=== PATIENT | male | born 1995 | race Caucasian/White ===

== ENCOUNTER 2024-12-22 20:24 | Emergency (ER) | payer MEDICAID, SELFPAY ==
--- OUTSIDE RECORDS SUMMARY | 2024-11-03 10:31 | XMS_ITS | Encounter Summary ---
Author Organization [facility] Address [address] [place] [address] Care Team Providers Care Quality Rep Name Role Phone Carlos Reis MD Unavailable [phone] Gloria Perez Primary Care Provider [phone] Reason for Visit * Reason Comments OP Infusion * Episode Based Medications (Routine) - Closed Specialty Diagnoses / Procedures Referred By Tami piña Referred To Contact Diagnoses Multiple sclerosis (CMS/HCC) Procedures AZ INJECTION, OCRELIZUMAB, 1 MG Carlos Reis MD [address] [address] Phone: tel: fax: Carlos Reis MD [id number] [place] [address] Phone: tel: fax: Referral ID Status Reason Start Date Expiration Date Visits Re quested Visits Authorized [id number] Closed 10/18/2024 04/19/2026 1 1 Encounter Details Date Type Department Care Team (Latest Contact Info) Description 11/03/2024 10:31 AM EDT - 11/03/2024 11:59 PM EDT Hospital Encounter [facility] [address] [place] [address] Multiple sclerosis (CMS/HCC) (Primary Dx) Discharge Disposition: Home or Self Care Social History Tobacco Use Types Packs/Day Years Used Date Smoking Tobacco: Former Cigarettes 0.5 4 Alcohol Use Standard Drinks/Week Comments Not Currently 1 (1 standard drink = 0.6 oz pur e alcohol) CAGE ASSESSMENT Answer Date Recorded Cage unable to access Not on file 02/22/2023 Cage max number of drinks Not on file 2022 Cage Beverages a week Not on file 02/22/2023 Have you ever felt you should CUT down on your d rinking? 0 02/22/2023 Have you been ANNOYED by people criticizing your drinking? 0 02/22/2023 Have you felt GUILTY about your drinking? 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 0 02/22/2023 CAGE Questionnaire Score 0 023 Sex and Gender Information Value Date Recorded Sex Assigned at Not on file Legal Sex Male 10:31 AM EDT Gender Identity Not on file Sexual Orientation Not on file documented as of this encounter Last Filed Vital Signs Vital Sign Reading Time Taken Comments Blood Pressure 113/78 11/03/2024 3:24 PM EDT Pulse 92 11/03/2024 3:24 PM EDT Temperature 36.6 C (97.8 F) 11/03/2024 10:38 AM EDT Respiratory Rate - - Oxygen Saturation - - Inhaled Oxygen Concentration - - Weight - - Height 193 cm (6' 4 ) 11/03/2024 10:38 AM EDT Body Mass Index - - documented in this encounter Medications at Time of Discharge acetaminophen (Tylenol) 325 MG tablet 03/11/2023 ammonium lactate (Lac-Hydrin) 12 % lotion 09/11/2023 busPIRone (Buspar) 5 MG tablet Take 1 tablet (5 mg) by mouth 2 (two) times a day. carbidopa-levodop a (Sinemet) 25-100 MG tablet Take 2 tablets by mouth 4 (four) times a day. ciprofloxacin (Cipro) 500 MG tablet 10/14/2024 cyclobenzaprine (Flexeril) 5 MG tablet 06/12/2023 docusate sodium (Colace) 250 MG capsule 06/18/2023 ergocalciferol 1.25 MG (70470 UT) capsule 10/01/2024 FLUoxetine (PROzac) 60 MG tablet 06/21/2023 gabapentin (Neurontin) 300 MG capsule Take 1 capsule (300 mg) by mouth 3 (three) times a day. loratadine (Claritin) 10 MG tablet Take 1 tablet (10 mg) by mouth 1 (one) time each day. mirabegron ER (Myrbetriq) 50 MG tablet 01/02/2024 oxybutynin XL (Ditropan-XL) 15 MG 24 hr tablet Take 1 tablet (15 mg) by mouth 1 (one) time each day. zolpidem (Ambien) 5 MG tablet Take 1 tablet (5 mg) by mouth every night. documented as of this encounter Miscellaneous Notes * Jaye Vaca RN - 11/03/2024 11:14 AM EDT Images from the original note were not included. [id number] Ocrelizumab Injection Brand Name(s): Dana?? WHY is this medicine prescribed? Ocrelizumab injection is used to treat adults with various forms of multiple sclerosis (MS; a disease in which the nerves do not function properly and people may experience weakness, numbness, loss of muscle coordination, and problems with vision, speech, and bladder control) including primary-progressive forms (symptoms gradually become worse over time), clinically isolated syndrome (CIS; nerve symptom episodes that last at least 24 hours), relapsing-remitting forms (course of disease where symptoms flare up from time to time), or secondary progressive forms (course of disease where relapsesoccur more often). Ocrelizumab in a class of medications called monoclonal antibodies. It works by stopping certain cells of the immune system from causing damage. HOW should this medicine be used? Ocrelizumab injection comes as a solution (liquid) to be injected intravenously (into a vein) by a doctor or nurse. It is usually injected slowly over a period of at least 2?? hours once every 2 weeks for the first two doses (at week 0 and week 2), and then infusions are given slowly over a period of about 2 to 3?? hours once every 6 months. Ocrelizumab injection may cause serious reactions during an infusion and up to a day after receiving the infusion. You may be given other medications to treat or help prevent reactions to ocrelizumab. A doctor or nurse will watch you closely while receiving the infusion and for at least 1 hour afterwards to provide treatment in case of certain side effects to the medication. Your doctor may temporarily or permanently stop your treatment or decrease the dose, if you experience certain side effects. Tell your doctor or nurse if you experience any of the following during or within 24 hours afteryour infusion: rash; itching; hives; redness at the injection site; difficulty breathing or swallowing; cough; wheezing; feeling faint; throat irritation; mouth or throat pain; shortness of breath; swelling of the face, eyes, mouth, throat, tongue, or lips; flushing; fever; fatigue; tiredness; headache; dizziness; nausea; or a racing heartbeat. Call your doctor immediately or get immediate emergency medical attention if you experience any of these symptoms after you leave your doctor's office or medical facility. Ocrelizumab may help to control multiple sclerosis symptoms but does not cure them. Your doctor will watch you carefully to see how well ocrelizumab works for you. It is important to tell your doctorhow you are feeling during your treatment. Your doctor or pharmacist will give you the bottled beverage inspector's patient information sheet (Medication Guide) when you begin treatment with ocrelizumab injection and each time you refill your prescription.Read the information carefully and ask your doctor or pharmacist if you have any questions. You canalso visit the Food and Drug Administration (FDA) website (https://www.fda.gov/Drugs/DrugSafety/ucm0 26074.htm)or the bottled beverage inspector's website to obtain the Medication Guide. Are there OTHER USES for this medicine? This medication may be prescribed for other uses; ask your doctor or pharmacist for more information. What SPECIAL PRECAUTIONS should I follow? Before receiving ocrelizumab injection, ?? tell your doctor and pharmacist if you are allergic to ocrelizumab, any other medications, or any of the ingredients in ocrelizumab injection. Ask your pharmacist for a list of the ingredients. ?? tell your doctor and pharmacist what prescription and nonprescription medications, vitamins, nutritional supplements, and herbal products you are taking or plan to take while taking ocrelizumab. Your doctor may need to change the doses of your medications or monitor you carefully for side effects. ?? tell your doctor if you have or have ever had hepatitis B (HBV; a virus that infects the liver and may cause severe liver damage or liver cancer). Your doctor will probably tell you not to receiveocrelizumab. ?? tell your doctor if you have any type of infection before you begin your treatment with ocrelizumab injection. Also tell your doctor if you have or have ever had inflammatory bowel disease (IBD; agroup of conditions that cause swelling of the lining of the intestines) such as Crohn's disease (acondition in which the body attacks the lining of the digestive tract, causing pain, diarrhea, weight loss, and fever) or ulcerative colitis (a condition which causes swelling and sores in the liningof the colon [large intestine] and rectum). ?? tell your doctor if you are , plan to become , or are . Use effective control during your treatment with ocrelizumab and for 6 months after the final dose. If you become while receiving ocrelizumab, call your doctor. If you receive ocrelizumab injection during your , be sure to talk to your baby's doctor about this after your baby is born. Your baby may need to delay receiving certain vaccines. ?? tell your doctor if you have had a recent vaccination or are scheduled to receive any vaccinations. You may need to receive certain types of vaccines at least 4 weeks before and others at least 2 weeks before you start treatment with ocrelizumab injection. Do not have any vaccinations without talking to your doctor during your treatment. What SPECIAL DIETARY instructions should I follow? Unless your doctor tells you otherwise, continue your normal diet. What should I do IF I FORGET to take a dose? If you miss an appointment to receive ocrelizumab, call your doctor as soon as possible to reschedule your appointment. What SIDE EFFECTS can this medicine cause? Some side effects can be serious. If you experience any of these symptoms or those listed in the HOW section, call your doctor immediately or get emergency medical treatment: ?? fever, chills, persistent cough, or other signs of infection ?? mouth sores ?? shingles (a rash that can occur in people who have had chickenpox in the past) ?? sores around the genitals or rectum ?? skin infection ?? changes in vision, severe or persistent headache, confusion, eye redness or eye pain, or stiff neck ?? weakness on one side of the body; clumsiness of arms and legs; vision changes; changes in thinking, memory, and orientation; confusion; or personality changes ?? diarrhea or more frequent, loose stools; stools that are black, tarry or sticky or have blood inthem; abdominal pain or tenderness Ocrelizumab may increase your risk of certain cancers, including breast cancer. Talk to your doctorabout the risks of receiving this medication. Ocrelizumab may cause other side effects. Call your doctor if you have any unusual problems while receiving this medication. If you experience a serious side effect, you or your doctor may send a report to the Food and Drug Administration's (FDA) [employer] Adverse Event Reporting program online (https://www.fda.gov/Safety/MedWatch) or by phone ( ). What should I do in case of OVERDOSE? In case of overdose, call the poison control helpline at . Information is also available online at https://www.poisonhelp.org/help. If the victim has collapsed, had a seizure, has trouble breathing, or can't be awakened, immediately call emergency services at 291. What OTHER INFORMATION should I know? Keep all appointments with your doctor and the laboratory. Your doctor will order certain lab testsbefore and during your treatment to check your body's response to ocrelizumab injection. Ask your pharmacist any questions you have about ocrelizumab injection. It is important for you to keep a written list of all of the prescription and nonprescription (hczv-goi-lgavjsl) medicines you are taking, as well as any products such as vitamins, minerals, or otherdietary supplements. You should bring this list with you each time you visit a doctor or if you areadmitted to a hospital. It is also important information to carry with you in case of emergencies. This report on medications is for your information only, and is not considered individual patient advice. Because of the changing nature of drug information, please consult your physician or pharmacist about specific clinical use. The [employer] represents that the information provided hereunder was formulated with a reasonable standard of care, and in conformity with professional standards in the field. The [employer] makes no representations or warranties, express or implied, including, but not limited to, any implied warranty of merchantability and/or fitness for a particular purpose, with respect to such information and specifically disclaims all such warranties. Users are advised that decisions regarding drug therapy are complex medical decisions requiring the independent, informed decision of an appropriate health animal daycare provider, and the information is provided for informational purposes only. The entire monograph for a drug should be reviewed for a thorough understanding of the drug's actions, uses and side effects. The [employer] does not endorse or recommend the use of any drug.The information is not a substitute for medical care. AHFS?? Patient Medication Information?. ?? Copyright, 2023. The [employer]??, [address], [address], [place], [place]. All Rights Reserved. Duplication for commercial use must be authorized by [facility]. Selected Revisions: May 19, 2024. AHFS?? Patient Medication Information?. ?? Copyright, 2024 * Progress Notes - Jaye Champion RN - 11/03/2024 11:00 AM EDT Patient requested labs be drawn with IV start due to difficult stick. They were educated on best practice and verbalized understanding. Informed patient that observation period is recommended per the physician order; however Patient and his guardian declined to stay for full observation period. Advised and verbalized signs and symptoms of a reaction and when to call the physician or call 911. Patient tolerated Ocrevus without symptoms of adverse reaction and left clinic in stable condition with follow up appt in hand. documented in this encounter Plan of Treatment Upcoming Encounters Date Type Department Care Team (Late st Contact Info) Description 04/21/2025 9:30 AM EST Office Visit [place] [facility] Clinic [address] [place] [address] Carlos Reis MD [address] [place] [id number] documented as of this encounter Procedures Procedure Name Priority Date/Time Associated Diagnosis Comments CBC WITH AUTO DIFFERENTIAL Routine 11/03/2024 11:02 AM EDT Multiple sclerosis (CMS/HCC) COMPREHENSIVE METABOLIC PANEL, PLASMA Routine 11/03/2024 11:02 AM EDT Multiple sclerosis (CMS/HCC) documented in this encounter Results * CBC and differential (11/03/2024 11:02 AM EDT) WBC Count 8.02 3.70 - 10.30 10*3/uL LAB HEMATOLOGY METHOD 11/03/2024 11:[address] [facility] RBC Count 5.55 4.60 - 6.10 10*6/uL LAB HEMATOLOGY METHOD 11/03/2024 11:[address] [facility] HGB 16.5 13.7 - 17.5 g/dL LAB HEMATOLOGY METHOD 11/03/2024 11:[address] [facility] HCT 49.0 40.0 - 51.0 % LAB HEMATOLOGY METHOD 11/03/2024 11:[address] [facility] Platelet Count 235 155 - 369 10*3/uL LAB HEMATOLOGY METHOD 11/03/2024 11:[address] [facility] MCV 88 79 - 98 fL LAB HEMATOLOGY METHOD 11/03/2024 11:[address] [facility] MCH 29.7 26.0 - 32.0 pg LAB HEMATOLOGY METHOD 11/03/2024 11:[address] [facility] MCHC 33.7 30.7 - 35.5 g/dL LAB HEMATOLOGY METHOD 11/03/2024 11:[address] [facility] RDW 13.7 11.5 - 14.5 % LAB HEMATOLOGY METHOD 11/03/2024 11:[address] [facility] MPV 10.1 8.8 - 12.5 fL LAB HEMATOLOGY METHOD 11/03/2024 11:[address] [facility] nRBC 0.0 <=0.0 per 100 WBCs LAB HEMATOLOGY METHOD 11/03/2024 11:[address] [facility] Differential Type Automated LAB HEMATOLOGY METHOD 11/03/2024 11:[address] [facility] Neutrophils % 61 % LAB HEMATOLOGY METHOD 11/03/2024 11:[address] [facility] Lymphocytes % 23 % LAB HEMATOLOGY METHOD 11/03/2024 11:[address] [facility] Monocytes % 9 % LAB HEMATOLOGY METHOD 11/03/2024 11:[address] [facility] Eosinophils % 6 % LAB HEMATOLOGY METHOD 11/03/2024 11:[address] [facility] Basophils % 1 % LAB HEMATOLOGY METHOD 11/03/2024 11:[address] [facility] Immature Granulocytes % 0 % LAB HEMATOLOGY METHOD 11/03/2024 11:[address] [facility] Neutrophils Absolute 4.89 1.60 - 6.10 10*3/uL LAB HEMATOLOGY METHOD 11/03/2024 11:[address] [facility] Lymphocytes Absolute 1.87 1.20 - 3.90 10*3/uL LAB HEMATOLOGY METHOD 11/03/2024 11:[address] [facility] Monocytes Absolute 0.69 0.30 - 0.90 10*3/uL LAB HEMATOLOGY METHOD 11/03/2024 11:[address] [facility] Eosinophils Absolute 0.47 0.00 - 0.50 10*3/uL LAB HEMATOLOGY METHOD 11/03/2024 11:[address] [facility] Basophils Absolute 0.07 0.00 - 0.10 10*3/uL LAB HEMATOLOGY METHOD 11/03/2024 11:[address] [facility] Immature Granulocytes Absolute 0.03 0.00 - 0.06 10*3/uL LAB HEMATOLOGY METHOD 11/03/2024 11:[address] [facility] Blood Venous blood specimen / Unknown Venipuncture / Unknown 11/03/2024 11:02 AM EDT 11/03/2024 11:13 AM EDT [facility] - 11/03/2024 11:27 AM EDT Therapeutic decision making should be based on absolute values, rather than percentages. us Carlos Reis MD LAB BLOOD ORDERABLES F inal Result [facility] [address] [place] [address] * (ABNORMAL) Comprehensive metabolic panel (11/03/2024 11:02 AM EDT) Glucose, Plasma 92 74 - 99 mg/dL 11/03/2024 11:[address] [facility] BUN, Plasma 11 7 - 21 mg/dL 11/03/2024 11:[address] [facility] Creatinine, Plasma 0.65(L) 0.70 - 1.20 mg/dL 11/03/2024 11:[address] [facility] BUN/Creatinine Ratio 17 11/03/2024 11:[address] [facility] Sodium, Plasma 138 136 - 145 mmol/L 11/03/2024 11:[address] [facility] Potassium, Plasma 4.1 3.6 - 4.9 mmol/L 11/03/2024 11:[address] [facility] Chloride, Plasma 101 97 - 107 mmol/L 11/03/2024 11:[address] [facility] CO2, Plasma 26 22 - 29 mmol/L 11/03/2024 11:[address] [facility] Anion Gap 11 6 - 16 mmol/L 11/03/2024 11:[address] [facility] Total Calcium, Plasma 9.2 8.9 - 10.2 mg/dL 11/03/2024 11:[address] [facility] Total Protein 7.7 6.3 - 7.9 g/dL 11/03/2024 11:[address] [facility] Albumin, Plasma 4.4 3.5 - 5.2 g/dL 11/03/2024 11:[address] [facility] AST, Plasma 21 10 - 50 U/L 11/03/2024 11:[address] [facility] Comment:Hemolyzed, result ma y be falsely increased. ALT, Plasma 14 10 - 50 U/L 11/03/2024 11:[address] [facility] Alkaline Phosphatase, Plasma 155(H) 40 - 115 U/L 11/03/2024 11:[address] [facility] Total Bilirubin, Plasma 0.2 0.2 - 1.1 mg/dL 11/03/2024 11:[address] [facility] eGFRcr 132.4 mL/min/1.7 3m*2 11/03/2024 11:[address] [facility] Comment:Reported eGFRcr in m L/min/1.73m2 is based the CKD-EPI 2020 equation that does not use a race coefficient. Blood Venous blood specimen / Unknown Venipuncture / Unknown 11/03/2024 11:02 AM EDT 11/03/2024 11:13 AM EDT us Carlos Reis MD LAB BLOOD ORDERABLES F inal Result [facility] [address] [place] [address] documented in this encounter Visit Diagnoses Diagnosis Multiple sclerosis (CMS/HCC)- Primary Multiple sclerosis documented in this encounter Administered Medications Inactive Administered Medications - up to 3 most recent administrations Medication Order MAR Action Action Date Dose Rate Site acetaminophen (Tylenol) tablet 650 mg 650 mg, Oral, Once, 1 dose, On Sat11/03/24 at 1130, RoutineIndications:Multip le sclerosis (CMS/HCC) Given 11/03/2024 11:03 AM EDT 650 mg diphenhydrAMINE (Benadryl) tablet 50 mg 50 mg, Oral, Once, 1 dose, On Sat11/03/24 at 1130, RoutineIndications:Multip le sclerosis (CMS/HCC) Given 11/03/2024 11:03 AM EDT 50 mg methylPREDNISolone sodium succinate (PF) (SOLU-Medrol) injection 125 mg 125 mg, Intravenous, Once, 1 dose, On Sat11/03/24 at 1130, RoutineIndications:Multip le sclerosis (CMS/HCC) Given 11/03/2024 11:03 AM EDT 125 mg ocrelizumab (Ocrevus) 600 mg in sodium chloride 0.9 % 500 mL IVPB 600 mg, Intravenous, Once, 1 dose, On Sat11/03/24 at 1200, RoutineIndications:Multip le sclerosis (CMS/HCC) Rate/Dose Change 11/03/2024 1:52 PM EDT 200 mL/hr Rate/Dose Change 11/03/2024 1:22 PM EDT 160 mL/ hr Rate/Dose Change 11/03/2024 12:52 PM EDT 120 mL /hr documented in this encounter Additional Health Concerns Assessment Noted Time A fall risk assessment has been complete d for the patient 11/03/2024 10:38 AM EDT A Body Mass Index follow-up plan has been documented for the patient 11/03/2024 11:54 AM EDT documented as of this encounter Care Teams Quality Rep Relationship Specialty Start Date End Date Gloria Perez [address] [place] [id number] PCP - General Family Medicine 06/20/22 Carlos Reis MD [address] [facility] [address] [place] [address] Service Attending Neurology 05/07/22 documented as of this encounter
[2024-12-22 20:26] VITALS: BP 128/86; PULSE 105; RESP 14; TEMP 37.3; O2SAT 97; BMI 27.3
--- NOTE | 2024-12-22 20:32 | XR_ITS ---
PROCEDURE INFORMATION: Exam: XR Chest Exam date and time: 12/22/2024 8:57 PM Age: 29 years old Clinical indication: Other: Altered TECHNIQUE: Imaging protocol: Radiologic exam of the chest. Views: 1 view. COMPARISON: No relevant prior studies available. FINDINGS: Tubes, catheters and devices: Left probable vagal nerve stimulator with the generator over the upper left axilla. Lungs: Unremarkable. No consolidation. Pleural spaces: Unremarkable. No pleural effusion. No pneumothorax. Heart/Mediastinum: Unremarkable. No cardiomegaly. 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 IMPRESSION: No acute findings.
--- OUTSIDE RECORDS SUMMARY | 2024-12-22 20:35 | XMS_ITS | Encounter Summary ---
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 0 02/22/2023 CAGE Questionnaire Score 0 023 Sex and Gender Information Value Date Recorded Sex Assigned at Not on file Legal Sex Male 10:31 AM EDT Gender Identity Not on file Sexual Orientation Not on file documented as of this encounter Plan of Treatment Upcoming Encounters Date Type Department Care Team (Late st Contact Info) Description 04/21/2025 9:30 AM EST Office Visit [place] [facility] [address] [place] [address] Carlos Reis MD [address] [facility] [place] [address] documented as of this encounter Visit Diagnoses Not on filedocumented in this encounter Additional Health Concerns Assessment Noted Time A fall risk assessment has been complete d for the patient 11/03/2024 10:38 AM EDT A Body Mass Index follow-up plan has been documented for the patient 11/03/2024 11:54 AM EDT documented as of this encounter Care Teams Roller Relationship Specialty Start Date End Date Gloria Perez [address] [place] [id number] PCP - General Family Medicine 06/20/22 Carlos Reis MD [address] [place] [address] Service Attending Neurology 05/07/22 documented as of this encounter
--- OUTSIDE RECORDS SUMMARY | 2024-12-22 20:35 | XMS_ITS | Data Portability ---
Author Organization [facility] [place] [address] [place] [address] Assessment Encounter Date Assessment Date Assessment LastModified by Organization Details LastModified Time 05/21/2024 05/21/2024 - for catheter and supplies= [employer]. -also gave resources for [facility] development. continue on myrbetriq and oxybutinin -fu monthly for changes either with us or dr saab. i did discuss trying to see if we can get home health set up to change his catheters at home. they have missed quite a few apts in the past and cath changes have been late. this time he ended up in the hospital because if the infection and he was 4 months since his last change. we discussed risks associated with this. his mom has been in contact with but hasnt gotten it set up yet. 30 min spent in prep, face to face, and in coordination of care in addition to procedure time. Not available 05/21/2024 11:58:05 07/09/2024 07/09/2024 - for catheter and supplies= [facility]. -also gave resources for [facility] development. continue on myrbetriq and oxybutinin -fu monthly for changes either with us or dr saab. i did discuss trying to see if we can get home health set up to change his catheters at home. they have missed quite a few apts in the past and cath changes have been late. this time he ended up in the hospital because if the infection and he was 4 months since his last change. we discussed risks associated with this. his mom has been in contact with but hasnt gotten it set up yet. 30 min spent in prep, face to face, and in coordination of care in addition to procedure time. Not available 06/22/2024 09:44:53 08/12/2024 08/12/2024 - for catheter and supplies= [facility]. -also gave resources for [email or web address]. continue on myrbetriq and oxybutinin -fu monthly for changes either with us or dr saab. i did discuss trying to see if we can get home health set up to change his catheters at home. they have missed quite a few apts in the past and cath changes have been late. this time he ended up in the hospital because if the infection and he was 4 months since his last change. we discussed risks associated with this. his mom has been in contact with but hasnt gotten it set up yet. 30 min spent in prep, face to face, and in coordination of care in addition to procedure time. Not available 08/03/2024 10:17:41 10/14/2024 10/14/2024 - for catheter and supplies= [facility]. -also gave resources for [email or web address]. continue on myrbetriq and oxybutinin -fu monthly for changes either with us or dr saab. i did discuss trying to see if we can get home health set up to change his catheters at home. they have missed quite a few apts in the past and cath changes have been late. this time has been 2 months. we discussed risks associated with this. his mom has been in contact with but hasnt gotten it set up yet. next cath change with us in february, otherwise with home health until then monthly. 30 min spent in prep, face to face, and in coordination of care in addition to procedure time. [email or web address] Not available 10/14/2024 16:12:47 Plan of Treatment Reminders Order Date Submit Date Provider Last Modified By Organization Details Last Modified Time Details Appointments Establish ed Patient 20 2024 02:40P Radha Johnson APRN Not available Not available Not available Lab infectiou s disease panel 2024 025 CARSON [facility], [address], [place], [address], 10/17/2024 16:23:03 culture, urine - PT HAS CHRONIC CATH, LIKELY WILL HAVE MULTIPLE ORGANISMS PRESENT, PLS RESULT OUT 2024 025 CARSON [facility], [address], [address], [place], [address], 07/11/2024 08:20:33 unlisted lab - complianc e drug damari, no THC 2023 024 CARSON [facility], [address], [address], [place], [address], 06/07/2024 18:06:55 TSH + free T4, serum 2023 024 CARSON [facility], [address], [place] [address], [place], [address], 07/10/2024 08:24:23 CBC w/ auto diff 2023 024 CARSON [facility], [address], [place] [address], [place], [address], 07/10/2024 08:24:24 CMP, serum or plasma 2023 024 CAROSN [facility], [address], [place] [address], [place], [address], 07/10/2024 08:24:25 lipid panel, serum 2023 024 CARSON [facility], [address], [address], [place], [address], 07/10/2024 08:24:25 vitamin D, 25-hydrox y, total, serum 2023 024 CARSON [facility], [address], [address], [place], [address], 07/10/2024 08:24:27 HbA1c (hemoglob in A1c), blood 2023 024 CARSON [facility], [address], [address], [place], [address], 07/10/2024 08:24:26 Referral None recorded. Procedures None recorded. Surgeries None recorded. Imaging None recorded. Medication Orders Cipro 500 mg tablet 2024 025 [facility], [address] [place] [address], [address], 10/31/2024 05:01:25 Myrbetriq 50 mg tablet,ex tended release 2024 025 [facility], [address] [place] [address], [address], 10/14/2024 15:30:07 oxybutyni n chloride ER 15 mg tablet,ex tended release 24 hr 2024 025 [facility], [address] [place] [address], [address], 10/14/2024 15:30:08 Myrbetriq 50 mg tablet,ex tended release 2024 025 [facility] [id number], [address] [facility] , [place], [address], 08/12/2024 14:21:23 oxybutyni n chloride ER 15 mg tablet,ex tended release 24 hr [address] [facility] [address] [facility] [id number], [address] , [place], [address], 08/12/2024 14:21:27 Myrbetriq 50 mg tablet,ex tended release [address] [facility] [id number], [address] [facility] , [place], [address], 07/09/2024 11:45:29 oxybutyni n chloride ER 15 mg tablet,ex tended release 24 hr 2024 025 [facility] [id number], [address] [facility] , [place], [address], 07/09/2024 11:45:32 zolpidem 5 mg tablet 2023 024 [facility] [id number], [address] [facility] , [place], [address], 05/26/2024 12:06:05 gabapenti n 300 mg capsule 2023 024 [facility] [id number], [address] [facility] [address] , [place], [address], 05/26/2024 12:06:05 Myrbetriq 50 mg tablet,ex tended release 2023 024 [facility] [id number], [address] [facility] , [place], [address], 05/21/2024 11:57:42 oxybutyni n chloride ER 15 mg tablet,ex tended release 24 hr 2023 024 [facility] [id number], [address] [place] [address] , [place], [address], 05/21/2024 11:57:46 Patient TargetsNo targets recorded. Patient Instructions Encounter Date Encounter Id Patient Instructions Last Modified By Organization Details Last Modified Time 05/21/2024 [id number] depression treatment: care instructions Not available 05/21/2024 11:57:41 multiple sclerosis (MS): care instructions Not available 05/21/2024 11:57:40 05/26/2024 [id number] PP will call wit h results. If you have any questions or concerns, call pp or seek medical attention. [email or web address] Not available 05/26/2024 12:18:36 07/09/2024 [id number] depression treatment: care instructions Not available 07/09/2024 11:45:24 multiple sclerosis (MS): care instructions Not available 07/09/2024 11:45:24 08/12/2024 [id number] depression treatment: care instructions Not available 08/12/2024 14:21:16 multiple sclerosis (MS): care instructions Not available 08/12/2024 14:21:16 10/14/2024 [id number] depression treatment: care instructions Not available 10/14/2024 15:30:03 multiple sclerosis (MS): care instructions Not available 10/14/2024 15:30:03 Reason for Referral None Reported. Results Created Date Observation Date Name Description Value Unit Range Abnormal Flag Note LastModifiedBy Organization Detail LastModifiedTime 05/26/20 24 06/07/2024 COMPL IANCE DRUG DAMARI , NO THC summary report (summary) FINAL ===== ===== ===== ===== ===== ===== ===== ===== ===== ===== ===== ===== ===== === TOXAS SURE COMP DRUG DAMARI SIS,N O THC,U R ===== ===== ===== ===== ===== ===== ===== ===== ===== ===== ===== ===== ===== === Test Resul t Flag Units Drug Prese nt Cyclo benza claudine PRESE NT Desme thylc yclob enzap rine PRESE NT Desme thylc yclob enzap rine is an expec jayashree metab olite of cyclo benza claudine . Zolpi dem Acid PRESE NT Zolpi dem acid is an expec jayashree metab olite of zolpi dem. Fluox etine PRESE NT Norfl uoxet ine PRESE NT Norfl uoxet ine is an expec jayashree metab olite of fluox etine . Trazo done PRESE NT 1,3 chlor ophen yl piper azine PRESE NT 1,3-c hloro pheny l piper azine is an expec jayashree metab olite of trazo done. ===== ===== ===== ===== ===== ===== ===== ===== ===== ===== ===== ===== ===== === Test Resul t Flag Units Ref Range Creat inine 161 mg/dL >=20 ===== ===== ===== ===== ===== ===== ===== ===== ===== ===== ===== ===== ===== === Decla red Medic ation s: Medic ation list was not provi ded. ===== ===== ===== ===== ===== ===== ===== ===== ===== ===== ===== ===== ===== === For clini charity consu ltati on, pleas e call . ===== ===== ===== ===== ===== ===== ===== ===== ===== ===== ===== ===== ===== === Not Available [facility] ([facility]) [address] [place], [address], 06/07/2024 18:06:55 05/26/20 24 06/07/2024 COMPL IANCE DRUG DAMARI , NO THC pdf . Not Available [facility] ([facility]) [address] [place], [address], 06/07/2024 18:06:55 07/09/1907/10/2024 TSH+F REE T4 TSH 1.320 uIU/m L 0.450- 4.500 normal Not Available [facility] ([facility]) [address] [place], [address], 07/10/2024 08:24:23 07/09/19 25 07/10/2024 TSH+F REE T4 T4,free(dire ct) 0.89 NG/dL 0.82-1 .77 normal Not Available [facility] ([facility]) [address] [place], [address], 07/10/2024 08:24:23 07/09/19 25 07/10/2024 CBC WITH DIFFE RENTI AL/PL ATELE T WBC 8.1 x10e3 /uL 3.4-10 .8 normal Not Available [facility] ([facility]) [address] [place], [address], 07/10/2024 08:24:24 07/09/19 25 07/10/2024 CBC WITH DIFFE RENTI AL/PL ATELE T RBC 5.40 x10e6 /uL 4.14-5 .80 normal Not Available [facility] ([facility]) [address] [place], [address], 07/10/2024 08:24:24 07/09/19 25 07/10/2024 CBC WITH DIFFE RENTI AL/PL ATELE T hemoglobin 16.1 g/dL 13.0-1 7.7 normal Not Available [facility] ([facility]) [address] [place], [address], 07/10/2024 08:24:24 07/09/19 25 07/10/2024 CBC WITH DIFFE RENTI AL/PL ATELE T hematocrit 49.0 % 37.5-5 1.0 normal Not Available [facility] ([facility]) [address] [place], [address], 07/10/2024 08:24:24 07/09/1907/10/2024 CBC WITH DIFFE RENTI AL/PL ATELE T MCV 91 fL 79-97 normal Not Available [facility] ([facility]) [address] [place], [address], 07/10/2024 08:24:24 07/09/19 25 07/10/2024 CBC WITH DIFFE RENTI AL/PL ATELE T MCH 29.8 pg 26.6-3 3.0 normal Not Available [facility] ([facility]) [address] [place], [address], 07/10/2024 08:24:24 07/09/19 25 07/10/2024 CBC WITH DIFFE RENTI AL/PL ATELE T MCHC 32.9 g/dL 31.5-3 5.7 normal Not Available [facility] ([facility]) [address] [facility], [place], [address], 07/10/2024 08:24:24 07/09/19 25 07/10/2024 CBC WITH DIFFE RENTI AL/PL ATELE T RDW 13.9 % 11.6-1 5.4 Not Available [facility] ([facility]) [address] [place], [address], 07/10/2024 08:24:24 07/09/19 25 07/10/2024 CBC WITH DIFFE RENTI AL/PL ATELE T platelets 247 x10e3 /uL 150-45 0 normal Not Available [facility] ([facility]) [address] [place], [address], 07/10/2024 08:24:24 07/09/19 25 07/10/2024 CBC WITH DIFFE RENTI AL/PL ATELE T neutrophils 61 % not estab. normal Not Available [facility] ([facility]) [address] [place], [address], 07/10/2024 08:24:24 07/09/19 25 07/10/2024 CBC WITH DIFFE RENTI AL/PL ATELE T lymphs 24 % not estab. normal Not Available [facility] ([facility]) [address] [place], [address], 07/10/2024 08:24:24 07/09/19 25 07/10/2024 CBC WITH DIFFE RENTI AL/PL ATELE T monocytes 8 % not estab. normal Not Available [facility] ([facility]) [address] [place], [address], 07/10/2024 08:24:24 07/09/19 25 07/10/2024 CBC WITH DIFFE RENTI AL/PL ATELE T eos 5 % not estab. normal Not Available [facility] ([facility]) [address] [place], [address], 07/10/2024 08:24:24 07/09/19 25 07/10/2024 CBC WITH DIFFE RENTI AL/PL ATELE T basos 1 % not estab. normal Not Available [facility] ([facility]) [address] [facility], [place], [address], 07/10/2024 08:24:24 07/09/19 25 07/10/2024 CBC WITH DIFFE RENTI AL/PL ATELE T immature cells SCHOOL CLERK Not Available [facility] ([facility]) [address] [place], [address], 07/10/2024 08:24:24 07/09/19 25 07/10/2024 CBC WITH DIFFE RENTI AL/PL ATELE T neutrophils (absolute) 5.0 x10e3 /uL 1.4-7. 0 normal Not Available [facility] ([facility]) [address] [place], [address], 07/10/2024 08:24:24 07/09/19 25 07/10/2024 CBC WITH DIFFE RENTI AL/PL ATELE T lymphs (absolute) 1.9 x10e3 /uL 0.7-3. 1 normal Not Available [facility] ([facility]) [address] [place], [address], 07/10/2024 08:24:24 07/09/19 25 07/10/2024 CBC WITH DIFFE RENTI AL/PL ATELE T monocytes(ab solute) 0.6 x10e3 /uL 0.1-0. 9 normal Not Available [facility] ([facility]) [address] [facility], [place], [address], 07/10/2024 08:24:24 07/09/19 25 07/10/2024 CBC WITH DIFFE RENTI AL/PL ATELE T eos (absolute) 0.4 x10e3 /uL 0.0-0. 4 normal Not Available [facility] ([facility]) [address] [facility], [place], [address], 07/10/2024 08:24:24 07/09/19 25 07/10/2024 CBC WITH DIFFE RENTI AL/PL ATELE T baso (absolute) 0.1 x10e3 /uL 0.0-0. 2 normal Not Available [facility] ([facility]) [address] [facility], [place], [address], 07/10/2024 08:24:24 07/09/19 25 07/10/2024 CBC WITH DIFFE RENTI AL/PL ATELE T immature granulocytes 1 % not estab. Not Available [facility] ([facility]) [address] [facility], [place], [address], 07/10/2024 08:24:24 07/09/19 25 07/10/2024 CBC WITH DIFFE RENTI AL/PL ATELE T immature grans (abs) 0.0 x10e3 /uL 0.0-0. 1 Not Available [facility] ([facility]) [address] [facility], [place], [address], 07/10/2024 08:24:24 07/09/19 25 07/10/2024 CBC WITH DIFFE RENTI AL/PL ATELE T NRBC SCHOOL CLERK Not Available [facility] ([facility]) [address] [facility], [place], [address], 07/10/2024 08:24:24 07/09/19 25 07/10/2024 CBC WITH DIFFE RENTI AL/PL ATELE T hematology comments: SCHOOL CLERK Not Available [facility] ([facility]) [address] [place], [address], 07/10/2024 08:24:24 07/09/19 25 07/10/2024 COMP. METAB OLIC PANEL (14) glucose 91 mg/dL 70-99 normal Not Available [facility] ([facility]) [address] [place], [address], 07/10/2024 08:24:25 07/09/19 25 07/10/2024 COMP. METAB OLIC PANEL (14) BUN 16 mg/dL 6-20 normal Not Available [facility] ([facility]) [address] [place], [address], 07/10/2024 08:24:25 07/09/19 25 07/10/2024 COMP. METAB OLIC PANEL (14) creatinine 0.94 mg/dL 0.76-1 .27 normal Not Available [facility] ([facility]) [address] [place], [address], 07/10/2024 08:24:25 07/09/19 25 07/10/2024 COMP. METAB OLIC PANEL (14) eGFR 114 mL/mi n/1.7 3 >59 normal Not Available [facility] ([facility]) [address] [place], [address], 07/10/2024 08:24:25 07/09/19 25 07/10/2024 COMP. METAB OLIC PANEL (14) BUN/creatini ne ratio 17 9-20 normal Not Available [facility] ([facility]) [address] [place], [address], 07/10/2024 08:24:25 07/09/19 25 07/10/2024 COMP. METAB OLIC PANEL (14) sodium 142 mmol/ L 134-14 4 normal Not Available [facility] ([facility]) [address] [place], [address], 07/10/2024 08:24:25 07/09/19 25 07/10/2024 COMP. METAB OLIC PANEL (14) potassium 5.0 mmol/ L 3.5-5. 2 normal Not Available [facility] ([facility]) [address] [place], [address], 07/10/2024 08:24:25 07/09/19 25 07/10/2024 COMP. METAB OLIC PANEL (14) chloride 104 mmol/ L 96-106 normal Not Available [facility] ([facility]) [address] [place], [address], 07/10/2024 08:24:25 07/09/19 25 07/10/2024 COMP. METAB OLIC PANEL (14) carbon dioxide, total 22 mmol/ L 20-29 normal Not Available [facility] ([facility] [address] [place], [address], 07/10/2024 08:24:25 07/09/19 25 07/10/2024 COMP. METAB OLIC PANEL (14) calcium 9.3 mg/dL 8.7-10 .2 normal Not Available [facility] ([facility] [address] [place], [address], 07/10/2024 08:24:25 07/09/19 25 07/10/2024 COMP. METAB OLIC PANEL (14) protein, total 7.5 g/dL 6.0-8. 5 normal Not Available [facility] ([facility] [address] [place], [address], 07/10/2024 08:24:25 07/09/19 25 07/10/2024 COMP. METAB OLIC PANEL (14) albumin 4.5 g/dL 4.3-5. 2 normal Not Available [facility] ([facility]) [address] [place], [address], 07/10/2024 08:24:25 07/09/19 25 07/10/2024 COMP. METAB OLIC PANEL (14) globulin, total 3.0 g/dL 1.5-4. 5 Not Available [facility] ([facility]) [address] [place], [address], 07/10/2024 08:24:25 07/09/19 25 07/10/2024 COMP. METAB OLIC PANEL (14) bilirubin, total 0.3 mg/dL 0.0-1. 2 normal Not Available [facility] ([facility]) [address] [place], [address], 07/10/2024 08:24:25 07/09/19 25 07/10/2024 COMP. METAB OLIC PANEL (14) alkaline phosphatase 160 IU/L 44-121 above high normal Not Available [facility] ([facility]) [address] [place], [address], 07/10/2024 08:24:25 07/09/19 25 07/10/2024 COMP. METAB OLIC PANEL (14) AST (SGOT) 23 IU/L 0-40 normal Not Available [facility] ([facility]) [address] [place], [address], 07/10/2024 08:24:25 07/09/19 25 07/10/2024 COMP. METAB OLIC PANEL (14) ALT (SGPT) 15 IU/L 0-44 normal Not Available [facility] ([facility]) [address] [place], [address], 07/10/2024 08:24:25 07/09/19 25 07/10/2024 LIPID PANEL cholesterol, total 178 mg/dL 100-19 9 normal Not Available [facility] ([facility]) [address] [place], [address], 07/10/2024 08:24:25 07/09/19 25 07/10/2024 LIPID PANEL triglyceride s 140 mg/dL 0-149 normal Not Available [facility] ([facility]) [address] [place], [address], 07/10/2024 08:24:25 07/09/19 25 07/10/2024 LIPID PANEL HDL cholesterol 33 mg/dL >39 below low normal Not Available [facility] ([facility]) [address] [place], [address], 07/10/2024 08:24:25 07/09/19 25 07/10/2024 LIPID PANEL VLDL cholesterol charity 25 mg/dL 5-40 Not Available [facility] ([facility]) [address] [place], [address], 07/10/2024 08:24:25 07/09/19 25 07/10/2024 LIPID PANEL LDL chol calc ([facility]) 120 mg/dL 0-99 above high normal Not Available [facility] ([facility]) [address] [place], [address], 07/10/2024 08:24:25 07/09/1907/10/2024 LIPID PANEL LDL calc comment: SCHOOL CLERK Not Available [facility] ([facility]) [address] [place], [address], 07/10/2024 08:24:25 07/09/1907/10/2024 HEMOG LOBIN A1C hemoglobin A1C 5.3 % 4.8-5. 6 normal Predi abete s: 5.7 - 6.4 Diabe lionel: >6.4 Glyce xenia contr ol for adult s with diabe lionel: <7.0 Not Available [facility] ([facility]) [address] [place], [address], 07/10/2024 08:24:26 07/09/19 25 07/10/2024 VITAM IN D, 25-HY DROXY vitamin D, 25-hydroxy 13.2 NG/mL 30.0-1 00.0 below low normal Vitam in D defic iency has been defin ed by the Insti tute of Medic ine and an Endoc rine Socie ty pract ice guide line as a level of serum 25-OH vitam in D less than 20 ng/mL (1,2) . The Endoc rine Socie ty went on to furth er defin e vitam in D insuf ficie ncy as a level betwe en 21 and 29 ng/mL (2). 1. IOM (Inst itute of Medic ine). 2010. Dieta ry refer ence intak es for calci um and D. Mirela valadez [place]: The [facility] Press . 2. Mary pyle MF, Nay bryan [place], João off-F chelsea i MOLINA, et al. Evalu ation , treat ment, and preve ntion of vitam in D defic iency : an Endoc rine Socie ty clini charity pract ice guide line. JCEM. 2010; 96(7) :1911 -30. Not Available [facility] ([facility]) [address] [facility], [place], [address], 07/10/2024 08:24:26 07/09/19 25 07/11/2024 URINE CULTU RE,CO MPREH ENSIV E urine culture,comp rehensive Final report Not Available [facility] ([facility]) [address] [place], [address], 07/11/2024 08:20:33 07/09/19 25 07/11/2024 URINE CULTU RE,CO MPREH ENSIV E result 1 COMMEN T More than 3 organ isms recov ered, none predo minan t. Pleas e submi t anoth er cultu re if clini sofía indic ated. Great er than 100,0 00 colon y formi ng units per mL Not Available [facility] ([facility]) [address] [facility], [place], [address], 07/11/2024 08:20:33 10/15/19 25 10/14/2024 MICRO SENSI TIVIT Y abnormal status abnormal Not Available [facility] [address], [place], [address], 10/17/2024 16:23:04 10/15/19 25 10/14/2024 MICRO SENSI TIVIT Y abnormal status high Not Available [facility] [address], [place], [address], 10/17/2024 16:23:04 10/15/19 25 10/14/2024 MICRO SENSI TIVIT Y abnormal status intermedi ate Not Available [facility] [address], [place], [address], 10/17/2024 16:23:04 10/15/19 25 10/14/2024 MICRO SENSI TIVIT Y abnormal status resistant Not Available [facility] [address], [place], [address], 10/17/2024 16:23:04 10/15/19 25 10/14/2024 MICRO SENSI TIVIT Y abnormal status susceptib le Not Available [facility] [address], [place], [address], 10/17/2024 16:23:04 10/15/19 25 10/14/2024 MICRO SENSI TIVIT Y ampicillin >16 R resistant Not Available [facility] [address], [place], [address], 10/17/2024 16:23:04 10/15/19 25 10/14/2024 MICRO SENSI TIVIT Y amikacin <=8 S susceptib le Not Available [facility] [address], [place], [address], 10/17/2024 16:23:04 10/15/19 25 10/14/2024 MICRO SENSI TIVIT Y aztreonam <=2 S susceptib le Not Available [facility] [address], [place], [address], 10/17/2024 16:23:04 10/15/19 25 10/14/2024 MICRO SENSI TIVIT Y ceftazidime <=2 S susceptib le Not Available [facility] [address], [place], [address], 10/17/2024 16:23:04 10/15/19 25 10/14/2024 MICRO SENSI TIVIT Y ciprofloxaci n 2 R resistant Not Available [facility] [address], [place], [address], 10/17/2024 16:23:04 10/15/19 25 10/14/2024 MICRO SENSI TIVIT Y ceftriaxone <=1 S susceptib le Not Available [facility] [address], [place], [address], 10/17/2024 16:23:04 10/15/19 25 10/14/2024 MICRO SENSI TIVIT Y cefepime <=1 S susceptib le Not Available [facility] [address], [place], [address], 10/17/2024 16:23:04 10/15/19 25 10/14/2024 MICRO SENSI TIVIT Y nitrofuranto in 32 S susceptib le Not Available [facility] [address], [place], [address], 10/17/2024 16:23:04 10/15/19 25 10/14/2024 MICRO SENSI TIVIT Y gentamicin <=2 S susceptib le Not Available [facility] [address], [place], [address], 10/17/2024 16:23:04 10/15/19 25 10/14/2024 MICRO SENSI TIVIT Y levofloxacin 2 R resistant Not Available [facility] [address], [place], [address], 10/17/2024 16:23:04 10/15/19 25 10/14/2024 MICRO SENSI TIVIT Y meropenem <=0.5 S susceptib le Not Available [facility] [address], [place], [address], 10/17/2024 16:23:04 10/15/19 25 10/14/2024 MICRO SENSI TIVIT Y tobramycin <=2 S susceptib le Not Available [facility] [address], [place], [address], 10/17/2024 16:23:04 10/15/19 25 10/14/2024 MICRO SENSI TIVIT Y ampicillin/s ulbactam 23/01 intermedi ate Not Available [facility] [address], [place], [address], 10/17/2024 16:23:04 10/15/19 25 10/14/2024 MICRO SENSI TIVIT Y trimethoprim /sulfamethox azole <=0.5/ 9.5 S susceptib le Not Available [facility] [address], [place], [address], 10/17/2024 16:23:04 10/15/19 25 10/14/2024 MICRO SENSI TIVIT Y tetracycline <=2 S susceptib le Not Available [facility] [address], [place], [address], 10/17/2024 16:23:04 10/15/19 25 10/14/2024 MICRO SENSI TIVIT Y piperacillin /tazobactam 4/4 S susceptib le Not Available [facility] [address], [place], [address], 10/17/2024 16:23:04 10/15/19 25 10/14/2024 MICRO SENSI TIVIT Y ertapenem <=0.25 S susceptib le Not Available [facility] [address], [place], [address], 10/17/2024 16:23:04 10/15/19 25 10/14/2024 MICRO SENSI TIVIT Y organism Esch. coli Not Available [facility] [address], [place], [address], 10/17/2024 16:23:04 10/15/19 25 10/14/2024 RESIS TANCE MARKE RS ampc resistance marker Not Detect ed normal Not Available [facility] [address], [place], [address], 10/17/2024 16:23:03 10/15/19 25 10/14/2024 RESIS TANCE MARKE RS carbapenem resistance markers Not Detect ed normal Not Available [facility] [address], [place], [address], 10/17/2024 16:23:03 10/15/19 25 10/14/2024 RESIS TANCE MARKE RS esbl resistance markers Detect ed abnormal Not Available [facility] [address], [place], [address], 10/17/2024 16:23:03 10/15/19 25 10/14/2024 RESIS TANCE MARKE RS macrolide resistance markers Detect ed abnormal Not Available [facility] [address], [place], [address], 10/17/2024 16:23:03 10/15/19 25 10/14/2024 RESIS TANCE MARKE RS quinolone resistance markers Not Detect ed normal Not Available [facility] [address], [place], [address], 10/17/2024 16:23:03 10/15/19 25 10/14/2024 RESIS TANCE MARKE RS vancomycin resistance markers Not Detect ed normal Not Available [facility] [address], [place], [address], 10/17/2024 16:23:03 10/15/19 25 10/15/2024 UTI ID PANEL COMPL ETE, PCR eliseo albicans Not Detect ed not detect ed normal Not Available [facility] [address], [place], [address], 10/17/2024 16:23:03 10/15/19 25 10/15/2024 UTI ID PANEL COMPL ETE, PCR eliseo glabrata Not Detect ed not detect ed normal Not Available [facility] [address], [place], [address], 10/17/2024 16:23:03 10/15/19 25 10/15/2024 UTI ID PANEL COMPL ETE, PCR eliseo krusei Not Detect ed not detect ed normal Not Available [facility] [address], [place], [address], 10/17/2024 16:23:03 10/15/19 25 10/15/2024 UTI ID PANEL COMPL ETE, PCR eliseo lusitaniae Not Detect ed not detect ed normal Not Available [facility] [address], [place], [address], 10/17/2024 16:23:03 10/15/19 25 10/15/2024 UTI ID PANEL COMPL ETE, PCR eliseo parapsilosis Not Detect ed not detect ed normal Not Available [facility] [address], [place], [address], 10/17/2024 16:23:03 10/15/19 25 10/15/2024 UTI ID PANEL COMPL ETE, PCR eliseo tropicalis Not Detect ed not detect ed normal Not Available [facility] [address], [place], [address], 10/17/2024 16:23:03 10/15/19 25 10/15/2024 UTI ID PANEL COMPL ETE, PCR enterobacter cloacae Not Detect ed not detect ed normal Not Available [facility] [address], [place], [address], 10/17/2024 16:23:03 10/15/19 25 10/15/2024 UTI ID PANEL COMPL ETE, PCR enterococcus faecalis High not detect ed high Not Available [facility] [address], [place], [address], 10/17/2024 16:23:03 10/15/19 25 10/15/2024 UTI ID PANEL COMPL ETE, PCR escherichia coli High not detect ed high Not Available [facility] [address], [place], [address], 10/17/2024 16:23:03 10/15/19 25 10/15/2024 UTI ID PANEL COMPL ETE, PCR klebsiella oxytoca Not Detect ed not detect ed normal Not Available [facility] [address], [place], [address], 10/17/2024 16:23:03 10/15/19 25 10/15/2024 UTI ID PANEL COMPL ETE, PCR klebsiella pneumoniae High not detect ed high Not Available [facility] [address], [place], [address], 10/17/2024 16:23:03 10/15/19 25 10/15/2024 UTI ID PANEL COMPL ETE, PCR morganella morganii Not Detect ed not detect ed normal Not Available [facility] [address], [place], [address], 10/17/2024 16:23:03 10/15/19 25 10/15/2024 UTI ID PANEL COMPL ETE, PCR mycoplasma hominis Not Detect ed not detect ed normal Not Available [facility] [address], [place], [address], 10/17/2024 16:23:03 10/15/19 25 10/15/2024 UTI ID PANEL COMPL ETE, PCR proteus mirabilis Not Detect ed not detect ed normal Not Available [facility] [address], [place], [address], 10/17/2024 16:23:03 10/15/19 25 10/15/2024 UTI ID PANEL COMPL ETE, PCR providencia stuartii Not Detect ed not detect ed normal Not Available [facility] [address], [place], [address], 10/17/2024 16:23:03 10/15/19 25 10/15/2024 UTI ID PANEL COMPL ETE, PCR pseudomonas aeruginosa High not detect ed high Not Available [facility] [address], [place], [address], 10/17/2024 16:23:03 10/15/19 25 10/15/2024 UTI ID PANEL COMPL ETE, PCR serratia marcescens Not Detect ed not detect ed normal Not Available [facility] [address], [place], [address], 10/17/2024 16:23:03 10/15/19 25 10/15/2024 UTI ID PANEL COMPL ETE, PCR staphylococc us aureus - wound & urine Not Detect ed not detect ed normal Not Available [facility] [address], [place], [address], 10/17/2024 16:23:03 10/15/19 25 10/15/2024 UTI ID PANEL COMPL ETE, PCR staphylococc us saprophyticu s Not Detect ed not detect ed normal Not Available [facility] [address], [place], [address], 10/17/2024 16:23:03 10/15/19 25 10/15/2024 UTI ID PANEL COMPL ETE, PCR streptococcu s agalactiae Not Detect ed not detect ed normal Not Available [facility] [address], [place], [address], 10/17/2024 16:23:03 10/15/19 25 10/15/2024 UTI ID PANEL COMPL ETE, PCR ureaplasma urealyticum Not Detect ed not detect ed normal Not Available [facility] [address], [place], [address], 10/17/2024 16:23:03 10/15/19 25 10/16/2024 UTI ID PANEL COMPL ETE, PCR growth 24 Growth abnormal @24 Hours Gram Negat karuna Growt h, Not Available [facility] [address], [place], [address], 10/17/2024 16:23:03 Result Notes None recorded. Problems Name Problem SNOMED Code Status Onset Date Resolution Date Notes Provider Name and Address Organization Details Recorded Time Depressive disorder 59719172 Active 2021 Love Nixon null, [place] - [facility] 2 13:51:09 Anxiety 60709473 Active 2021 Love Nixon [place] [facility] 13:51:14 Chronic back pain 011959914 Active 2021 Love Nixon [place] - [facility] 13:51:27 Multiple sclerosis 15924839 Active 2021 Love Nixon null, [place] - [facility] 13:52:35 Insomnia 546215577 Active 2021 Lovemian Hallmanill null, [place] - [facility] 13:52:49 Spasm of urinary bladder 390868575 Active 2022 Shireenalvaro Floyd APRN [address], [place], [address], [place] - [facility] 15:50:55 Hyperlipidemia 64236972 Active 2023 Frediher Alex APRN [address], [place], [address], [place] - [facility] 4 08:21:56 Overactive urinary bladder 925340005 Active 2023 Fredi Johnson APRN [address], [place], [address], [place] - [facility] 4 08:22:02 Fissure in skin of bilateral feet 470472312 Active 2023 Frediher Alex APRN [address], [place], [address], [place] - [facility] 4 08:22:05 Problem Notes None recorded. Procedures Surgical History Date Name Laterality Status Provider Name and Address Organization Details Recorded Time 10/15/19 Suprapubic Catheter Change completed Shireen GillSARAH carrillo [address], [place], [address], [place] - [facility] 10/14/2024 15:06:09 08/13/19 25 Suprapubic Catheter Change completed Shireen Denver, RECEPTIONIST/TELEPHONE OPERATOR [address], [place], [address], [place] [facility] 08/12/2024 14:21:04 07/09/19 25 Bladder Irrigation completed Shireen Denver, RECEPTIONIST/TELEPHONE OPERATOR [address], [place], [address], [place] [facility] 07/09/2024 11:46:13 07/09/19 25 Suprapubic Catheter Change completed Shireen Mariel, RECEPTIONIST/TELEPHONE OPERATOR [address], [place], [address], [place] [facility] 07/09/2024 11:46:34 05/21/20 24 Suprapubic Catheter Change completed Shireen Mariel, RECEPTIONIST/TELEPHONE OPERATOR [address], [place], [address], [place] [facility] 05/21/2024 11:40:33 04/29/20 24 Medication Reconcilliation cancelled Radha Brooks [place] - [facility] 04/27/2024 11:47:16 04/15/20 24 Suprapubic Catheter Change completed Shireenblanca Floyd, RECEPTIONIST/TELEPHONE OPERATOR [address], [place], [address], [place] [facility] 04/15/2024 09:43:31 12/31/19 24 Suprapubic Catheter Change completed Shireen Mariel, RECEPTIONIST/TELEPHONE OPERATOR [address], [place], [address], [place] [facility] 12/31/2023 15:24:03 11/12/19 24 Suprapubic Catheter Change completed Shireenblanca Floyd, RECEPTIONIST/TELEPHONE OPERATOR [address], [place], [address], [place] [facility] 11/12/2023 12:38:46 11/14/19 23 Suprapubic Catheter Change completed Shireenblanca Floyd, RECEPTIONIST/TELEPHONE OPERATOR [address], [place], [address], [place] [facility] 11/13/2022 16:09:36 10/11/19 23 Suprapubic Catheter Change completed Shireenblanca Floyd, RECEPTIONIST/TELEPHONE OPERATOR [address], [place], [address], [place] [facility] 10/10/2022 15:35:42 09/15/19 Suprapubic Catheter Change completed Shireen Floyd, RECEPTIONIST/TELEPHONE OPERATOR [address], [place], [address], [place] - [facility] 09/14/2022 15:42:53 08/16/19 Suprapubic Catheter Change completed Shireen Floyd, RECEPTIONIST/TELEPHONE OPERATOR [address], [place], [address], [place] [facility] 08/15/2022 15:48:10 08/11/19 Suprapubic Catheter Change completed Shireen Floyd, RECEPTIONIST/TELEPHONE OPERATOR [address], [place], [address], [place] - [facility] 08/10/2022 12:15:22 Unlisted px foot/toes completed Love Alicea [place] - [facility] 01/18/2022 13:54:42 [facility] 01/18/2022 13:54:49 [facility] 01/18/2022 13:55:01 catheterization completed Love Alicea [place] - [facility] 04/20/2022 13:37:03 Imaging Results None recorded. Procedure Notes None recorded. Medical Equipment None Reported. Allergies Allergen ID Allergen Name Allergen Category Reaction Reaction Severity Criticality Documentation Date Start Date Code Code System Note Provider Name and Address Organization Details Recorded Time 056192 acetamino phen / hydrocodo ne medicatio n hives moderate Not available 12/31/20232023 64993 2 RxNorm Cande Landrum [place], [place] - [facility] 15:16:55 Medications Name Sig Start Date Stop Date Status Note LastModified by Organization Details LastModified Time fluoxetine 40 mg capsule TAKE TWO (2) CAPSULE EVERY DAY BY ORAL ROUTE. 11/04 completed Not Available Not Available Not Available buspirone 5 mg tablet TAKE 1 TABLET BY MOUTH 2 TIMES A DAY 2024 active Not Available Not Available Not Avai lable oxybutynin chloride ER 15 mg tablet,exte nded release 24 hr Take 1 tablet every day by oral route for 90 days. 2024 active Not Available Not Available Not Avai lable nicotine 14 mg/24 hr daily transdermal patch APPLY ONE (1) PATCH EVERY DAY BY TRANSDERM AL ROUTE. 07/24 completed Not Available Not Available Not Available ammonium lactate 12 % lotion active Not Available Not Available Not Available oxybutynin chloride ER 10 mg tablet,exte nded release 24 hr TAKE 1 TABLET BY MOUTH EVERY DAY 11/04 completed Not Available Not Available Not Available ibuprofen 800 mg tablet TAKE 1 TABLET BY MOUTH THREE (3) TIMES DAILY NEEDED active Not Available Not Available No t Available levothyroxi ne 300 mcg tablet 11/04 completed Not Available Not Available Not Available phenazopyri dine 200 mg tablet Take 1 tablet 3 times a day by oral route for 3 days. 12/30 completed Not Available Not Available Not Available sulfamethox azole 800 mg-trimetho prim 160 mg tablet TAKE 1 TABLET BY MOUTH TWICE DAILY active Not Available Not Available No t Available amantadine HCl 100 mg capsule TAKE 1 CAPSULE BY MOUTH TWICE DAILY 07/24 completed Not Available Not Available Not Available oxycodone-a cetaminophe n 5 mg-325 mg tablet 04/20 completed Not Available Not Available Not Available Ear Wax Removal Kit 6.5 % drops active Not Available Not Available Not Available baclofen 10 mg tablet TAKE 1 TABLET BY MOUTH EVERY DAY AT BEDTIME 07/24 completed Not Available Not Available Not Available cephalexin 500 mg capsule 04/20 completed Not Available Not Available Not Available Cipro 500 mg tablet Take 1 tablet every 12 hours by oral route for 10 days. 10/31 completed Not Available Not Available Not Available nicotine 21 mg/24 hr daily transdermal patch Apply 1 patch every day by transderm al route. 12/30 completed Not Available Not Available Not Available gabapentin 300 mg capsule TAKE 1 CAPSULE BY MOUTH 3 TIMES A DAY active Not Available Not Available No t Available ammonium lactate 12 % topical cream Apply 1 applicati on twice a day by topical route. active Not Available Not Available No t Available levothyroxi ne 200 mcg tablet 11/04 completed Not Available Not Available Not Available zolpidem 5 mg tablet TAKE 1 TABLET BY MOUTH EVERY NIGHT AT BEDTIME active Not Available Not Available No t Available gabapentin 100 mg capsule 11/04 completed Not Available Not Available Not Available ergocalcife rol (vitamin D2) 1,250 mcg (50,000 unit) capsule Take 1 capsule twice a week by oral route. active Not Available Not Available No t Available polyethylen e glycol 3350 17 gram/dose oral powder Daily PRN active Not Available Not Availabl e Not Available levofloxaci n 500 mg tablet Take 1 tablet every 24 hours by oral route for 7 days. 11/04 completed Not Available Not Available Not Available docusate sodium 250 mg capsule TAKE 1 CAPSULE BY MOUTH DAILY 2024 active Not Available Not Available Not Avai lable trihexyphen idyl 2 mg tablet Three times daily active Not Available Not Available No t Available carbidopa 25 mg-levodopa 100 mg tablet TAKE 2 TABLETS BY MOUTH 4 TIMES A DAY 2024 active Not Available Not Available Not Avai lable oxybutynin chloride 5 mg tablet TAKE ONE (1) TABLET BY MOUTH TWICE A DAY 01/23 completed Not Available Not Available Not Available fluoxetine 20 mg capsule Take 1 capsule every day by oral route. 11/04 completed Not Available Not Available Not Available doxycycline hyclate 100 mg tablet 11/04 completed Not Available Not Available Not Available loratadine 10 mg tablet 11/04 completed Not Available Not Available Not Available amoxicillin 875 mg-potassiu m clavulanate 125 mg tablet Take 1 tablet every 12 hours by oral route. 12/30 completed Not Available Not Available Not Available nicotine 7 mg/24 hr daily transdermal patch APPLY ONE (1) PATCH EVERY DAY BY TRANSDERM AL ROUTE. 07/24 completed Not Available Not Available Not Available cyclobenzap rine 5 mg tablet TAKE 1 TABLET BY MOUTH DAILY 2024 active Not Available Not Available Not Avai lable carbidopa 25 mg-levodopa 100 mg disintegrat ing tablet Place 2 tablets 4 times a day by transling ual route. 01/23 completed Not Available Not Available Not Available fluoxetine 60 mg tablet TAKE 1 TABLET BY MOUTH DAILY 2024 active Not Available Not Available Not Avai lable Myrbetriq 50 mg tablet,exte nded release Take 1 tablet every day by oral route for 90 days. 2024 active Not Available Not Available Not Avai lable Gemtesa 75 mg tablet Once daily by mouth 12/30 completed Not Available Not Available Not Available Vitals Date Recorded Heart rate Oxygen saturation Oxygen saturation in Arterial blood by Pulse oximetry Respiratory rate Systolic And Diastolic Provider Name and Address Organization Details Last Updated DateTime 5 96 /min 97 % 97 % 16 /min 122/72 mm[Hg] Joie Louis [facility] 5 11:25:08 Date Recorded Heart rate Oxygen saturation Oxygen saturation in Arterial blood by Pulse oximetry Respiratory rate Systolic And Diastolic Provider Name and Address Organization Details Last Updated DateTime 5 64 /min 97 % 97 % 16 /min 120/68 mm[Hg] Joie Louis [facility] 5 13:43:34 Date Recorded Heart rate Oxygen saturation Oxygen saturation in Arterial blood by Pulse oximetry Respiratory rate Systolic And Diastolic Provider Name and Address Organization Details Last Updated DateTime 5 76 /min 96 % 96 % 16 /min 132/76 mm[Hg] Joie Louis [facility] 5 14:53:27 Date Recorded Heart rate Oxygen saturation Oxygen saturation in Arterial blood by Pulse oximetry Respiratory rate Systolic And Diastolic Provider Name and Address Organization Details Last Updated DateTime 4 91 /min 97 % 97 % 18 /min 108/72 mm[Hg] Joie Louis [facility] 4 11:32:47 Date Recorded Body temperature Heart rate Oxygen saturation Oxygen saturation in Arterial blood by Pulse oximetry Respiratory rate Systolic And Diastolic Provider Name and Address Organization Details Last Updated DateTime 4 97.7 [degF] 83 /min 96 % 96 % 16 /min 126/86 mm[Hg] Radha Brooks [facility] 4 11:55:24 Social History Question Answer Notes LastModified by Organizat ion Details LastModified Time Tobacco Smoking Status Former Smoker Love starr [facility] 04/20/2022 13:36:44 Do You Have An Advance Directive? No [email or web address] Information not available 01/18/2022 Are You Blind Or Do You Have Difficulty Seeing? No [email or web address] Information not available 01/18/2022 What Is Your Level Of Caffeine Consumption? None [email or web address] Information not available 01/18/2022 Are You Deaf Or Do You Have Serious Difficulty Hearing? No [email or web address] Information not available 01/18/2022 What Is The Highest Grade Or Level Of School You Have Completed Or The Highest Degree You Have Received? [id number] [email or web address] Information not available 01/18/2022 Have There Been Any Changes To Your Family Or Social Situation? No [email or web address] Information not available 01/18/2022 What Is The Fluoride Status Of Your Home? Fluoridated [email or web address] Information not available 01/18/2022 When Did You Quit Smoking? 1-5yearssinlena doveradalberto [email or web address] Information not available 04/20/2022 Do You Have A Medical Power Of Forming Machine Upkeep Mechanic? No [email or web address] Information not available 01/18/2022 What Was The Date Of Your Most Recent Tobacco Screening? 05/26/2024 Information not available 05/26/2024 What Is Your Current Pack Years? [email or web address] Information not available 12/31/2023 What Is Your Relationship Status? Unknown [email or web address] Information not available 01/18/2022 Are You Sexually Active? No [email or web address] Information not available 01/18/2022 Do You Have Smoke And Carbon Monoxide Detectors In Your Home? Yes [email or web address] Information not available 01/18/2022 Are You Passively Exposed To Smoke? No Information not available 01/18/2022 How Much Tobacco Do You Smoke? No [email or web address] Information not available 04/20/2022 Has Tobacco Cessation Counseling Been Provided? Yes [email or web address] Information not available 01/18/2022 On What Date Was Tobacco Cessation Counseling Provided? 05/26/2024 Information not available 05/26/2024 Do You Have Difficulty Walking Or Climbing Stairs? Yes [email or web address] Information not available 01/18/2022 Sex: Male Functional Status Question Answer Note LastModified by Organizat ion Details LastModified Time Do you use any illicit or recreational drugs? No [email or web address] Information not available 01/18/2022 Do you or have you ever used any other forms of tobacco or nicotine? No [email or web address] Information not available 01/18/2022 What is your level of alcohol consumption? None [email or web address] Information not available 01/18/2022 Are you currently employed? No [email or web address] Information not available 01/18/2022 Do you have transportation difficulties? Yes [email or web address] Information not available 01/18/2022 Are you able to walk? NOWALK Inf ormation not available 01/18/2022 Do you have difficulty doing errands alone? Yes [email or web address] Information not available 01/18/2022 Are you able to care for yourself? No Information not available 01/18/2022 Do you have difficulty dressing or bathing? Yes [email or web address] Information not available 01/18/2022 Mental Status Question Answer Note LastModified by Organizat ion Details LastModified Time Do you feel stressed (tense, restless, nervous, or anxious, or unable to sleep at night)? [id number] [email or web address] Information not available 01/18/2022 Do you have difficulty concentrating, remembering or making decisions? Yes [email or web address] Information no t available 01/18/2022 Family History Relationship Description Onset Age of this Age Resolved Age Notes LastModified by Organization Details LastModified Time Mother Diabetes mellitus [email or web address] Not available 2021 13:52:58 Medical History No medical history recorded. Immunizations Vaccine Type Date Status Note Provider Nam e and Address Organization Details Recorded Time Tdap 01/23/2023 completed MICHAEL García - [facility] 01/23/2023 16:41:38 Past Encounters Encounter ID Performer Location Encounter Start Date Encounter Closed Date Diagnosis/Indication Diagnosis SNOMED-CT Code Diagnosis ICD10 Code Diagnosis Note [id number] Fredi Johnson APRN [address] [place] [address] 01/18/2022 13:23:31 01/18/2022 15:02:47 Depressive disorder 50022241 F32.A Chronic back pain 010792 002 G89.29 Anxiety 87791459 F41.9 Insomnia 760670655 G47.0 0 Multiple sclerosis 13809 007 G35 Cigarette smoker 2924411 7 F17.210 Long-term drug therapy 758336179 Z79.899 Urinary incontinence 165 382786 R32 Depression screening 171 681355 Z13.31 PHQ-9 Hyperlipid emia screening 772597589 Z13.220 Diabetes m ellitus screening 529935034 Z13.1 Thyroid di sorder screening 871344051 Z13.29 [id number] Shireen Floyd [facility] [address] [place] [address] 01/31/2022 11:20:44 01/31/2022 12:17:54 Multiple sclerosis 12041277 G35 has referral to neuro Depressive disorder 3548 9007 F32.A Urinary incontinence 165 529116 R32 [id number] Fredi Johnson RECEPTIONIST/TELEPHONE OPERATOR [address] [place] [address] 04/20/2022 13:22:05 04/20/2022 14:24:17 Anxiety 21720145 F41.9 Insomnia 144139499 G47.0 0 Chronic back pain 693410 002 G89.29 Depressive disorder 3548 9007 F32.A Multiple sclerosis 42973 007 G35 Suprapubic urinary catheter in situ 364747322 Z96.0 Spasm of u rinary bladder 509406230 N32.89 Long-term drug therapy 586811222 Z79.964 [id number] Fredi Johnson [address] [place] [address] 07/24/2022 13:43:03 07/24/2022 15:02:14 Multiple sclerosis 22017364 G35 Chronic back pain 428649 002 G89.29 Nicotine dependence 5629 4008 F17.200 Anxiety 15580022 F41.9 Long-term drug therapy 981730043 Z79.852 [id number] Shireen Floyd [facility] [address] [place] [address] 08/10/2022 10:31:10 08/10/2022 11:45:59 Urinary incontinence 709920234 R32 Multiple sclerosis 56725 007 G35 has referral to neuro Depressive disorder 3548 9007 F32.A Retention of urine 39538 4002 R33.9 [id number] [facility] [address] [place] [address] 09/14/2022 15:27:23 09/14/2022 16:01:42 Urinary incontinence 457729189 R32 continue oxybutinin , advised at 2wks after starting if still having leakage go to [facility]. Multiple sclerosis 01120 007 G35 has referral to neuro Depressive disorder 3548 9007 F32.A Retention of urine 19545 4002 R33.9 -cath Neurogenic urinary bladder 135364703 N31.9 [id number] [facility] [address] [place] [address] 08/15/2022 15:16:35 08/15/2022 15:47:18 Urinary incontinence 139463583 R32 Multiple sclerosis 96703 007 G35 has referral to neuro Depressive disorder 354[facility]7 F32.A Retention of urine 17855 4002 R33.9 Neurogenic urinary bladder 447906022 N31.9 [id number] [facility] [address] [place] [address] 10/10/2022 15:22:42 10/10/2022 15:54:15 Urinary incontinence 649137950 R32 Multiple sclerosis 91184 007 G35 has referral to neuro Depressive disorder 354 9007 F32.A Retention of urine 93362 4002 R33.9 -cath Neurogenic urinary bladder 714264403 N31.9 Spasm of u rinary bladder 666312834 N32.89 [id number] [facility] [address] [place] [address] 11/13/2022 15:51:29 11/13/2022 16:34:43 Urinary incontinence 158040976 R32 Multiple sclerosis 14496 007 G35 has referral to neuro Depressive disorder 354 9007 F32.A Retention of urine 31231 4002 R33.9 -cath Neurogenic urinary bladder 761057497 N31.9 -avoid anticholin ergics in this patient d/t potential patient harm. anticholin ergics interact with currently rx medication s and combo may incr. risk of FILM WRITER depression , psychomoto r impairment .Beta 3 agonists are the safest alternativ e for this patient. Spasm of u rinary bladder 779858231 N32.89 [id number] Fredi Johnson APRN [address] [place] [address] 01/23/2023 16:01:20 01/23/2023 16:40:11 Anxiety 22662977 F41.9 Multiple sclerosis 80357 007 G35 Depressive disorder 3548 9007 F32.A Long-term current use of drug therapy 435576230 Z79.899 Insomnia 690574230 G47.0 0 Neurogenic urinary bladder 726514246 N31.9 Spasm of u rinary bladder 077038116 N32.89 Chronic back pain 166092 002 G89.29 Onychomyco sis of toenails 301692758 B35.1 Active or passive immunization 011749905 Z23 [id number] Fredi Johnson RECEPTIONIST/TELEPHONE OPERATOR [address] [place] [address] 11/05/2023 15:59:12 11/08/2023 06:14:35 General examination of patient 830724017 Z00.00 Endocrine/ metabolic screening 301067992 Z13.228 Exercises education, guidance, and counseling 449259514 Z71.82 The patient was advised to continue a healthy diet and exercise regularly. Dietary ma nagement surveillance 002089275 Z71.3 Nicotine dependence 5629 4008 F17.200 Insomnia 825594562 G47.0 0 Multiple sclerosis 26256 007 G35 Hyperlipidemia 89688287 E78.5 Anxiety 90402971 F41.9 Depressive disorder 3548 9007 F32.A Constipation 56437116 K5 9.00 Overactive urinary bladder 937146989 N32.81 Chronic back pain 333439 002 G89.29 Fissure in skin of bilateral feet 937966578 R23.4 Depression screening 171 874530 Z13.31 PHQ-0 [id number] Shireen Floyd [facility] [address] [place] [address] 11/12/2023 09:07:25 11/12/2023 10:01:12 Urinary incontinence 002591639 R32 Multiple sclerosis 64004 007 G35 has referral to neuro Depressive disorder 3548 9007 F32.A Retention of urine 12983 4002 R33.9 -cath Neurogenic urinary bladder 352841198 N31.9 -avoid anticholin ergics in this patient d/t potential patient harm. anticholin ergics interact with currently rx medication s and combo may incr. risk of FILM WRITER depression , psychomoto r impairment .Beta 3 agonists are the safest alternativ e for this patient. Spasm of u rinary bladder 501420782 N32.89 Wound of skin 415357134 T14.8XXA Overactive urinary bladder 252967289 N32.81 -avoid anticholin ergics in this patient d/t potential patient harm. anticholin ergics interact with currently rx medication s and combo may incr. risk of FILM WRITER depression , psychomoto r impairment . AlsoBeta 3 agonists are the safest alternativ e for this patient. -had 2 month trial of gemtesa which was ineffectiv e to control his symptoms, left residual bladder spasms and pain. -best tolerated combinatio n has been myrbetriq and oxybutinin . [id number] [facility] [address] [place] [address] 12/31/2023 14:38:53 12/31/2023 15:58:33 Urinary incontinence 353280334 R32 Multiple sclerosis 53694 007 G35 has referral to neuro Depressive disorder 3548 9007 F32.A Retention of urine 13135 4002 R33.9 -cath Neurogenic urinary bladder 813721342 N31.9 -avoid anticholin ergics in this patient d/t potential patient harm. anticholin ergics interact with currently rx medication s and combo may incr. risk of FILM WRITER depression , psychomoto r impairment .Beta 3 agonists are the safest alternativ e for this patient. Overactive urinary bladder 169427623 N32.81 -avoid anticholin ergics in this patient d/t potential patient harm. anticholin ergics interact with currently rx medication s and combo may incr. risk of FILM WRITER depression , psychomoto r impairment . AlsoBeta 3 agonists are the safest alternativ e for this patient. -had 2 month trial of gemtesa which was ineffectiv e to control his symptoms, left residual bladder spasms and pain. -best tolerated combinatio n has been myrbetriq and oxybutinin . [id number] [facility] [address] [place] [address] 04/15/2024 08:56:12 04/15/2024 09:51:48 Urinary incontinence 737237099 R32 Multiple sclerosis 09597 007 G35 has referral to neuro Depressive disorder 3544 9007 F32.A Retention of urine 17513 4002 R33.9 -cath Neurogenic urinary bladder 363025398 N31.9 -avoid anticholin ergics in this patient d/t potential patient harm. anticholin ergics interact with currently rx medication s and combo may incr. risk of FILM WRITER depression , psychomoto r impairment .Beta 3 agonists are the safest alternativ e for this patient. Overactive urinary bladder 601676420 N32.81 -avoid anticholin ergics in this patient d/t potential patient harm. anticholin ergics interact with currently rx medication s and combo may incr. risk of FILM WRITER depression , psychomoto r impairment . AlsoBeta 3 agonists are the safest alternativ e for this patient. -had 2 month trial of gemtesa which was ineffectiv e to control his symptoms, left residual bladder spasms and pain. -best tolerated combinatio n has been myrbetriq and oxybutinin . [id number] [facility] [address] [place] [address] 05/21/2024 11:20:26 05/21/2024 11:59:33 Urinary incontinence 118930104 R32 Multiple sclerosis 78193 007 G35 has referral to neuro Depressive disorder 354 9007 F32.A Retention of urine 31487 4002 R33.9 -cath Neurogenic urinary bladder 178692876 N31.9 -avoid anticholin ergics in this patient d/t potential patient harm. anticholin ergics interact with currently rx medication s and combo may incr. risk of FILM WRITER depression , psychomoto r impairment .Beta 3 agonists are the safest alternativ e for this patient. Overactive urinary bladder 349821947 N32.81 -avoid anticholin ergics in this patient d/t potential patient harm. anticholin ergics interact with currently rx medication s and combo may incr. risk of FILM WRITER depression , psychomoto r impairment . AlsoBeta 3 agonists are the safest alternativ e for this patient. -had 2 month trial of gemtesa which was ineffectiv e to control his symptoms, left residual bladder spasms and pain. -best tolerated combinatio n has been myrbetriq and oxybutinin . [id number] [facility] [address] [place] [address] 07/09/2024 11:00:39 07/09/2024 11:48:50 Urinary incontinence 224402833 R32 Multiple sclerosis 25116 007 G35 has referral to neuro Depressive disorder 3548 9007 F32.A Retention of urine 35447 4002 R33.9 -cath Neurogenic urinary bladder 183967311 N31.9 -avoid anticholin ergics in this patient d/t potential patient harm. anticholin ergics interact with currently rx medication s and combo may incr. risk of FILM WRITER depression , psychomoto r impairment .Beta 3 agonists are the safest alternativ e for this patient. Overactive urinary bladder 655666768 N32.81 -avoid anticholin ergics in this patient d/t potential patient harm. anticholin ergics interact with currently rx medication s and combo may incr. risk of FILM WRITER depression , psychomoto r impairment . AlsoBeta 3 agonists are the safest alternativ e for this patient. -had 2 month trial of gemtesa which was ineffectiv e to control his symptoms, left residual bladder spasms and pain. -best tolerated combinatio n has been myrbetriq and oxybutinin . [id number] [facility] [address] [place] [address] 05/26/2024 11:46:32 05/26/2024 12:21:29 Long-term current use of drug therapy 531672407 Z79.899 Multiple sclerosis 68873 007 G35 Chronic back pain 898137 002 G89.29 Insomnia 951433121 G47.0 0 Depressive disorder 3548 9007 F32.A Anxiety 87747519 F41.9 Hyperlipidemia 90707105 E78.5 Thyroid di sorder screening 256299882 Z13.29 Diabetes m ellitus screening 332318170 Z13.1 Vitamin D deficiency 347 59198 E55.9 Depression screening 171 575739 Z13.31 PHQ-12 [id number] [facility] [address] [place] [address] 08/12/2024 13:30:39 08/12/2024 14:21:07 Urinary incontinence 332115494 R32 Multiple sclerosis 38113 007 G35 has referral to neuro Depressive disorder 3548 9007 F32.A Retention of urine 98017 4002 R33.9 -cath Neurogenic urinary bladder 420797040 N31.9 -avoid anticholin ergics in this patient d/t potential patient harm. anticholin ergics interact with currently rx medication s and combo may incr. risk of FILM WRITER depression , psychomoto r impairment .Beta 3 agonists are the safest alternativ e for this patient. Overactive urinary bladder 503370643 N32.81 -avoid anticholin ergics in this patient d/t potential patient harm. anticholin ergics interact with currently rx medication s and combo may incr. risk of FILM WRITER depression , psychomoto r impairment . AlsoBeta 3 agonists are the safest alternativ e for this patient. -had 2 month trial of gemtesa which was ineffectiv e to control his symptoms, left residual bladder spasms and pain. -best tolerated combinatio n has been myrbetriq and oxybutinin . [id number] [facility] [address] [place] [address] 10/14/2024 14:03:16 10/14/2024 16:30:15 Overactive urinary bladder 719493264 N32.81 -avoid anticholin ergics in this patient d/t potential patient harm. anticholin ergics interact with currently rx medication s and combo may incr. risk of FILM WRITER depression , psychomoto r impairment . AlsoBeta 3 agonists are the safest alternativ e for this patient. -had 2 month trial of gemtesa which was ineffectiv e to control his symptoms, left residual bladder spasms and pain. -best tolerated combinatio n has been myrbetriq and oxybutinin . Urinary incontinence 165 361006 R32 Multiple sclerosis 12306 007 G35 has referral to neuro Depressive disorder 3548 9007 F32.A Retention of urine 58586 4002 R33.9 -cath Neurogenic urinary bladder 740984194 N31.9 -avoid anticholin ergics in this patient d/t potential patient harm. anticholin ergics interact with currently rx medication s and combo may incr. risk of FILM WRITER depression , psychomoto r impairment .Beta 3 agonists are the safest alternativ e for this patient. Acute urin lux tract infection 950479788 N39.0 Health Concerns Section Related Observation LastModified by Organization Detai ls LastModified Time None Recorded Concern Status LastModified by Organization Details LastModified Time None Recorded Advance Directives Directive N: Payers Insurance Date Sequence Insurance Name Policy Number Policy Cary Covered Member ID Cary Member ID Guarantor Name 12/12/2024 1 [place] [facility] [place] F[place]/TRADITIONA L Evens Andre [id number] Evens Andre 12/12/2024 [place] Evens A Andre [id number] Evens Andre 08/24/2022 [id number] Evens A Andre [id number] Evens Andre 09/09/2024 SLIDING FEE SCHEDULE - DISCOUNT Evens Andre 04/16/[address] [place] [address] (MEDICAID REPLACEMENT - HMO) Evens Andre [id number] Evens Andre 09/14/2022 1 [facility] [facility] [place] PRIOR TO 2022 ([place]ICA[place] REPLACEMENT - [place]MO) [place] Evens Andre [id number] Evens Andre 09/14/2022 1 [facility] (MEDICAID REPLACEMENT - HMO) [place] Evens A Andre [id number] Evens Andre 07/24/2022 [id number] Evens Andre [id number] Evens Andre 01/03/2024 1 MEDICAID-[facility] CHOICES - FFS/TRADITIONA L Evens Andre [id number] Evens Andre Notes Date Note Type Note Provider Name and Address Organization Details Recorded Time 05/21/2024 text/html pt was referred by fredi jean.his mom is with him. history of MS, anxiety, chronic back pain, depression, and insomnia to establish care. He recently moved here from [place].Dx with MS at the age of 17. He states that his diagnosis is hard on him. He does get depressed about it. States that he use to be normal and now he cant even walk. reports he is much better since being placed on depression med by PCP. When he initially found out about his diagnosis he turned to IV and illict drugs, ran away from home and became homeless. He does have thoughts of harming himself but previously had stated that he couldn't if he wanted to d/t his disability and wouldn't if he could. He originally did smoke cigarettes but now vapes because it is easier for him to hold. ------comes back today to f/uhe was referred to Dr Cheuprapubic tube was inserted 04/2022.he comes today to followup. Dr Saab called a couple of weeks ago to see if we would be able to change his catheter monthly and he would follow him every 6 months. 05/21/24comes to fu on neurogenic bladder, urinary retention. needs cath changed Evens presents today accompanied by his mother and younger brother taking oxybutinin 15mg ER daily and myrbetriq 50mg daily and doing better. sees dr saab june. was debating on talking to him about taking the cath out Shireen Floyd, RECEPTIONIST/TELEPHONE OPERATOR [address], [place], [address], [place] - [facility] 05/21/2024 11:58:23 05/26/2024 text/html Evens presents today for medication refills.Has been out of Gabapentin for a couple months and Ambien since last week.Voices that he is doing well, I'm alive. He is fasting. Controlled agreement 11/05/23UDS collected 05/26/24[place] req # [id number] Fredi Johnson, RECEPTIONIST/TELEPHONE OPERATOR [address], [place], [address], [place] - [facility] 05/26/2024 12:19:31 07/09/2024 text/html pt was referred by fredi jean.his mom is with him. history of MS, anxiety, chronic back pain, depression, and insomnia to establish care. He recently moved here from [place].Dx with MS at the age of 17. He states that his diagnosis is hard on him. He does get depressed about it. States that he use to be normal and now he cant even walk. reports he is much better since being placed on depression med by PCP. When he initially found out about his diagnosis he turned to IV and illict drugs, ran away from home and became homeless. He does have thoughts of harming himself but previously had stated that he couldn't if he wanted to d/t his disability and wouldn't if he could. He originally did smoke cigarettes but now vapes because it is easier for him to hold. ------comes back today to f/uhe was referred to Dr Cheuprapubic tube was inserted 04/2022.he comes today to followup. Dr Saab called a couple of weeks ago to see if we would be able to change his catheter monthly and he would follow him every 6 months. 07/09/24comes to fu on neurogenic bladder, urinary retention. needs cath changed Evens presents today accompanied by his mother and younger brother taking oxybutinin 15mg ER daily and myrbetriq 50mg daily and doing better. sees dr saab june. was debating on talking to him about taking the cath out Shireen Floyd, RECEPTIONIST/TELEPHONE OPERATOR [address], [place], [address], [place] - [facility] 07/09/2024 11:47:57 08/12/2024 text/html pt was referred by fredi jean.his mom is with him. history of MS, anxiety, chronic back pain, depression, and insomnia to establish care. He recently moved here from [place].Dx with MS at the age of 17. He states that his diagnosis is hard on him. He does get depressed about it. States that he use to be normal and now he cant even walk. reports he is much better since being placed on depression med by PCP. When he initially found out about his diagnosis he turned to IV and illict drugs, ran away from home and became homeless. He does have thoughts of harming himself but previously had stated that he couldn't if he wanted to d/t his disability and wouldn't if he could. He originally did smoke cigarettes but now vapes because it is easier for him to hold. ------comes back today to /e was referred to Dr Sueubic tube was inserted 04/2022.he comes today to followup. Dr Saab called a couple of weeks ago to see if we would be able to change his catheter monthly and he would follow him every 6 months. 08/12/24comes to fu on neurogenic bladder, urinary retention. needs cath changed Evens presents today accompanied by his mother and younger brother taking oxybutinin 15mg ER daily and myrbetriq 50mg daily and doing better. sees dr saab june. was debating on talking to him about taking the cath out Shireen Floyd, RECEPTIONIST/TELEPHONE OPERATOR [address], [place], [address], [place] - [facility] 08/12/2024 14:21:39 10/14/2024 text/html pt was referred by fredi jean.his mom is with him. history of MS, anxiety, chronic back pain, depression, and insomnia to establish care. He recently moved here from [place].Dx with MS at the age of 17. He states that his diagnosis is hard on him. He does get depressed about it. States that he use to be normal and now he cant even walk. reports he is much better since being placed on depression med by PCP. When he initially found out about his diagnosis he turned to IV and illict drugs, ran away from home and became homeless. He does have thoughts of harming himself but previously had stated that he couldn't if he wanted to d/t his disability and wouldn't if he could. He originally did smoke cigarettes but now vapes because it is easier for him to hold. ------comes back today to f/katheryn was referred to Dr Sueubic tube was inserted 04/2022.he comes today to followup. Dr Saab called a couple of weeks ago to see if we would be able to change his catheter monthly and he would follow him every 6 months. 10/14/24comes to fu on neurogenic bladder, urinary retention. needs cath changed Evens presents today accompanied by his mother and younger brother taking oxybutinin 15mg ER daily and myrbetriq 50mg daily and doing better. sees dr saab june. was debating on talking to him about taking the cath out Evens presents today accompanied by his mother for a Catheter change Shireen Floyd, SARAH [address], [place], [address], [place] - [facility] 10/14/2024 16:13:36
--- OUTSIDE RECORDS SUMMARY | 2024-12-22 20:35 | XMS_ITS | Data Portability ---
Author Organization [place] [facility] Address [address] [place] [address] Care Team Providers Care Dried Fruit Washer Name Role Phone MINGO JAMA Primary Care Provider [phone] Assessment No assessment recorded. Plan of Treatment Reminders Order Date Submit Date Provider Last Modified By Organization Details Last Modified Time Details Appointments None recorded. Lab None recorded. Referral neurologist referral - primary progressive multiple sclerosis, due for his next Ocrevus infusion, significant weakness on the left, significant tremor and spastic dysphonia. 2021 Carlos Reis MD, [address], [address], 07:46:19 Procedures None recorded. Surgeries None recorded. Imaging None recorded. Medication Orders amantadine HCl 100 mg capsule [address], [address], 14:24:44 baclofen 10 mg tablet [address], [address], 14:24:45 Ditropan XL 10 mg tablet,exte nded release [address], [address], 2 14:24:44 Patient TargetsNo targets recorded. Patient InstructionsNo instructions recorded. Reason for Referral Neurologist Referral for Kimberley garcia progressive multiple sclerosis primary progressive multiple sclerosis, due for his next Ocrevus infusion, significant weakness on the left, significant tremor and spastic dysphonia. Referring Physician: Jesika Vargas, Neurology, Encounter Date: 02/26/2022 Procedures Surgical History Date Name Laterality Status Provider Name and Address Organization Details Recorded Time 7 Hip Surgery completed Yesenia Juliana [facility] & [place] 02/26/2022 13:40:01 9 Other completed Yesenia Juliana RODRIGUEZ [facility] & [place] 02/26/2022 13:40:01 Imaging Results None recorded. Procedure Notes None recorded. Medical Equipment None Reported. Allergies No known drug allergies Medications Name Sig Start Date Stop Date Status Note LastModified by Organization Details LastModified Time fluoxetine 40 mg capsule TAKE ONE (1) CAPSULE EVERY DAY BY ORAL ROUTE. active Not Available Not Available No t Available nicotine 14 mg/24 hr daily transdermal patch APPLY ONE (1) PATCH EVERY DAY BY TRANSDERM AL ROUTE. active Not Available Not Available No t Available oxybutynin chloride ER 10 mg tablet,exte nded release 24 hr TAKE 1 TABLET BY MOUTH EVERY DAY active Not Available Not Available No t Available amantadine HCl 100 mg capsule TAKE ONE (1) TABLET TWICE A DAY active Not Available Not Available No t Available tamsulosin 0.4 mg capsule TAKE ONE CAPSULE BY MOUTH ONCE DAILY AT BEDTIME active Not Available Not Available No t Available baclofen 10 mg tablet TAKE 1 TABLET BY MOUTH EVERY DAY AT BEDTIME active Not Available Not Available No t Available gabapentin 300 mg capsule TAKE ONE (1) CAPSULE THREE (3) TIMES A DAY BY MOUTH active Not Available Not Available No t Available zolpidem 5 mg tablet TAKE ONE (1) TABLET EVERY DAY BY MOUTH active Not Available Not Available No t Available trihexyphen idyl 2 mg tablet Take 1/2 tablet (1 mg total) by mouth daily. active Not Available Not Available No t Available carbidopa 25 mg-levodopa 100 mg tablet TAKE TWO (2) TABLETS BY MOUTH FOUR (4) TIMES A DAY active Not Available Not Available No t Available fluoxetine 20 mg capsule TAKE ONE (1) CAPSULE BY MOUTH EVERY DAY ALONG WITH THE 40MG active Not Available Not Available No t Available nicotine 7 mg/24 hr daily transdermal patch APPLY ONE (1) PATCH EVERY DAY BY TRANSDERM AL ROUTE. 02/23 completed Not Available Not Available Not Available Vitals Date Recorded Body height Body mass index (BMI) Body weight Body temperature Oxygen saturation Oxygen saturation in Arterial blood by Pulse oximetry Heart rate Systolic And Diastolic Provider Name and Address Organization Details Last Updated DateTime 2 177.8 cm 31.6 kg/m2 40365.3 2 g 96.7 [degF] 98 % 98 % 78 /min 120/80 mm[Hg] Yesenia RODRIGUEZ [facility] & [place] 13:44:19 Social History Question Answer Notes LastModified by Organizat ion Details LastModified Time Tobacco Smoking Status Former Smoker Yesenia Andrews [facility], [place]HAEL [facility] & [place] 02/26/2022 13:39:57 Do You Have An Advance Directive? No Information not available 02/26/2022 Are You Blind Or Do You Have Difficulty Seeing? No Information not available 02/26/2022 What Was The Date Of Your Most Recent Tobacco Screening? 02/23/2022 Information not available 02/26/2022 Are You Passively Exposed To Smoke? No Information not available 02/26/2022 How Much Tobacco Do You Smoke? No Information not available 02/26/2022 How Many Years Have You Smoked Tobacco? 10 Information not available 02/26/2022 Sex: Male Functional Status Question Answer Note LastModified by Organizat ion Details LastModified Time Do you use any illicit or recreational drugs? No Information not available 02/26/2022 What is your level of alcohol consumption? None Information not available 02/26/2022 Do you or have you ever used smokeless tobacco? Former smokeless tobacco user Information not available 02/26/2022 What is your exercise level? None Information not available 02/26/2022 Mental Status Question Answer Note LastModified by Organization D etails LastModified Time Do you feel stressed (tense, restless, nervous, or anxious, or unable to sleep at night)? [id number] Information not available 02/26/2022 Family History Nothing Reported. Medical History Condition Response Neurological Problems Y Past Encounters Encounter ID Performer Location Encounter Start Date Encounter Closed Date Diagnosis/Indication Diagnosis SNOMED-CT Code Diagnosis ICD10 Code Diagnosis Note [id number] Jesika Vargas MD [facility] [address] [facility] [address] 02/26/2022 13:36:23 02/26/2022 14:28:08 Primary progressive multiple sclerosis 857917868 G35 will have patient follow-up with [facility] as soon as possible for continued Ocrevus treatment. In the meantime will try to help with spasticity and start baclofen at bedtime, will also go ahead and start Ditropan to see if this may not help spastic bladder. He has had no help with Sinemet, will gradually wean that, and see if amantadine may not be of benefit to him. I have also asked patient to obtain previous records for me as well as paperwork so we can obtain motorized wheelchair . Spastic ne urogenic urinary bladder 142398897 N31.8 Ditropan Tremor 31019835 R25.1 Health Concerns Section Related Observation LastModified by Organization Detai ls LastModified Time None Recorded Concern Status LastModified by Organization Details LastModified Time None Recorded Advance Directives Directive N: Payers Insurance Date Sequence Insurance Name Policy Number Policy Cary Covered Member ID Cary Member ID Guarantor Name 02/23/2022 1 [facility] (MEDICARE REPLACEMENT/A DVANTAGE - HMO) Evens Andre [id number] Evens Andre Notes Date Note Type Note Provider Name and Address Organization Details Recorded Time 02/26/2022 text/html unfortunate 27-year-old male with diagnosis of progressive multiple sclerosis. Patient has recently moved here from [place], his workup has included MRI scans of the spine and brain, he has also had a spinal tap, I do not have his records at this time. He has been diagnosed with multiple sclerosis and has had a progressive course. Initially he had significant left leg weakness, this then progressed to significant tremor and spasticity, with a coarse intention tremor in the right upper extremity right lower extremity and head neck. He also has some spastic dysphonia as well. Patient is currently wheelchair bound. Patient has been started on Ocrevus, he has had his initial infusion and a follow-up infusion 6 months later, he is due for his next infusion. Patient also has been started on multiple medicines to help with his tremor, he is on high-dose carbidopa levodopa but does not feel it is making any difference. Patient also is on Artane and again this is made no difference in his tremor. Patient complains of significant spasticity particularly at nighttime he also has a spastic bladder. Jesika Vargas MD [address] [place] [address], [phone], [facility] - [place] & [place] 02/26/2022 14:25:40
--- OUTSIDE RECORDS SUMMARY | 2024-12-22 20:35 | XMS_ITS | Encounter Summary ---
Author Organization Healthcare Address [address] [place] [address] Care Team Providers Care Nephrologist Name Role Phone Carlos Reis MD Unavailable + [phone] Gloria Perez Primary Care Provider [phone] Encounter Details Date Type Department Care Team (Latest Contact Info) Description 11/02/2024 Travel Social History Tobacco Use Types Packs/Day Years [...] drink first t luther in the morning (EYE-OVERHEAD CLEANER) to steady your nerves or to get rid of a hangover? 0 02/22/2023 CAGE Questionnaire Score 0 023 Sex and Gender Information Value Date Recorded Sex Assigned at Not on file Legal Sex Male 10:31 AM EDT Gender Identity Not on file Sexual Orientation Not on file documented as of this encounter Plan of Treatment Upcoming Encounters Date Type Department Care Team (Late Contact Info) Description 04/21/2025 9:30 AM EST Office Visit [place] [facility] [address] [place] [address] Carlos Reis MD [address] [address] documented as of this encounter Visit Diagnoses Not on filedocumented in this encounter Additional Health Concerns Assessment Noted Time A fall risk assessment has been complete d for the patient 10/15/2024 8:50 AM EDT A Body Mass Index follow-up plan has been documented for the patient 10/15/2024 10:16 AM EDT documented as of this encounter Care Teams Nephrologist Relationship Specialty Start Date End Date Gloria Perez [address] [place], [place] [id number] PCP - General Family Medicine 06/20/22 Carlos Reis MD [address] [address] Service Attending Neurology 05/07/22 documented as of this encounter
--- OUTSIDE RECORDS SUMMARY | 2024-12-22 20:35 | XMS_ITS | Clinical Summary ---
Author Organization [facility] Address [address] [place] [address] Care Team Providers Care Plastic Tool Maker Name Role Phone Carlos Reis MD Unavailable + [phone] Gloria Perez Primary Care Provider [phone] Allergies Active Allergy Reactions Criticality Noted Date Comments Hydrocodone Hives Medium 06/12/2023 Hydrocodone-Acetaminophen Hives,Itching,Rash Medium Medications zolpidem (Ambien) 5 MG tablet Take 1 tablet (5 mg) by mouth every night. Active loratadine (Claritin) 10 MG tablet Take 1 tablet (10 mg) by mouth 1 (one) time each day. Active gabapentin (Neurontin) 300 MG capsule Take 1 capsule (300 mg) by mouth 3 (three) times a day. Active oxybutynin XL (Ditropan-XL) 15 MG 24 hr tablet Take 1 tablet (15 mg) by mouth 1 (one) time each day. Active carbidopa-levod opa (Sinemet) 25-100 MG tablet Take 2 tablets by mouth 4 (four) times a day. Active FLUoxetine (PROzac) 60 MG tablet 06/21/2023 Active docusate sodium (Colace) 250 MG capsule 06/18/2023 Active cyclobenzaprine (Flexeril) 5 MG tablet 06/12/2023 Active acetaminophen (Tylenol) 325 MG tablet 03/11/2023 Active ammonium lactate (Lac-Hydrin) 12 % lotion 09/11/2023 Active busPIRone (Buspar) 5 MG tablet Take 1 tablet (5 mg) by mouth 2 (two) times a day. Active mirabegron ER (Myrbetriq) 50 MG tablet 01/02/2024 Active ciprofloxacin (Cipro) 500 MG tablet 10/14/2024 Active ergocalciferol 1.25 MG (32568 UT) capsule 10/01/2024 Active Active Problems Problem Noted Date Diagnosed Date Neuromuscular dysfunction of bladder, unspecifie d 06/28/2023 Oropharyngeal dysphagia 05/21/2023 Dysarthria 05/16/2023 Ataxia, unspecified 04/16/2023 Neurogenic bowel, not elsewhere classified 03/17 Status post deep brain stimulator placement 02/08 Dystonia, unspecified 11/22/2022 Chronic back pain 01/18/2022 Depressive disorder 01/18/2022 Insomnia 01/18/2022 Anxiety 01/18/2022 Multiple sclerosis 08/09/2011 Encounters Date Type Department Care Team Description 12/03/2024 Orders Only [facility] [address] [place] [address] Lai Harris RN 11/03/2024 10:31 AM EDT - 11/03/2024 11:59 PM EDT Hospital Encounter [facility] [address] [place] [address] Multiple sclerosis ([facility]) (Primary Dx) Discharge Disposition: Home or Self Care 11/03/2024 Travel 11/02/2024 Travel 10/30/2024 Telephone [facility] [address] [place] [address] Maria Isabel Galeano, SARAH, DNP 10/15/2024 9:00 AM EDT Office Visit [facility] [address] [place] [address] Carlos Reis MD MS (multiple sclerosis) ([facility]) (Primary Dx); Disability due to neurological disorder 10/15/2024 Orders Only [facility] [address] [place] [address] Carlos Reis MD Multiple sclerosis ([facility]) (Primary Dx) 10/15/2024 Travel from Last 3 Months Immunizations Immunization Administration Dates Next Due DTaP / HiB / IPV 01/23/2023 PPD Skin Test (TB Skin Test) 06/20/2023,06/13/19 24 Tdap 01/23/2023 Family History Medical History Relation Name Comments Anesthesia problems Neg Hx Malig Hyperthermia Neg Hx Social History Tobacco Use Types Packs/Day Years Used Date Smoking Tobacco: Former Cigarettes 0.5 4 Tobacco Cessation:Counseling Given: Not Answered Alcohol Use Standard Drinks/Week Comments Not Currently [...] drink first t luther in the morning (EYE-ASSISTANT PROFESSOR NURSE EDUCATION) to steady your nerves or to get rid of a hangover? 0 02/22/2023 CAGE Questionnaire Score 0 023 Sex and Gender Information Value Date Recorded Sex Assigned at Not on file Legal Sex Male 10:31 AM EDT Gender Identity Not on file Sexual Orientation Not on file Last Filed Vital Signs Vital Sign Reading Time Taken Comments Blood Pressure 113/78 11/03/2024 3:24 PM EDT Pulse 92 11/03/2024 3:24 PM EDT Temperature 36.6 C (97.8 F) 11/03/2024 10:38 AM EDT Respiratory Rate 20 04/20/2024 8:50 AM EST Oxygen Saturation 97% 10/15/2024 8:5 0 AM EDT Inhaled Oxygen Concentration - - Weight 80.4 kg (177 lb 4 oz) 10/15/2024 8:50 AM EDT Weight with wheelchair was 97.7kg, wheelchair weighs 17.3kg Height 193 cm (6' 4 ) 11/03/2024 10:38 AM EDT Body Mass Index 21.58 10/15/2024 8:50 AM EDT Plan of Treatment Upcoming Encounters Date Type Department Care Team (Late st Contact Info) Description 04/21/2025 9:30 AM EST Office Visit [place] [facility] [address] [place] [address] Carlos Reis MD [address] [place] [address] Health Maintenance Due Date Last Done Comments [facility]-Depression Screening 1997 [facility]-HIV Screening 1997 [facility]-Hepatitis C Screening 1997 [facility]-Infant/Child/Adol SDOH Screenings 1997 [facility]-Varicella Vaccines (1 of 2 - 13+ 2-dose series) 2010 HPV Vaccines (1 - Male 3-dose series) 01/07/2012 [facility]- SDOH Screenings 2015 [facility]-Adult SDOH Screenings 2015 [facility]-Hepatitis B Vaccines (1 of 3 - 19+ 3-dose series) 01/07/2016 [facility]-IPV Vaccines (2 of 3 - Adult catch-up series) 02/20/2023 01/23/2023 [id number] Vaccine (1 - season) 2024 [facility]-Influenza Vaccine (#1) 2025 [facility]-DTaP,Tdap,and Td Vaccines (3 - Td or Tdap) 01/23/2033 01/23/2023, 01/23/2023 [facility]-Zoster Vaccines (1 of 2) 2047 [facility]-HIB Vaccines Aged Out 01/23/2023 No longer e ligible based on patient's age to complete this topic [facility]-Hepatitis A Vaccines Aged Out No longer eligible based on patient's age to complete this topic [facility]-Pneumococcal Vaccine: Pediatrics (0 to 5 Years) and At-Risk Patients (6 to 49 Years) Aged Out No longer eligible b ased on patient's age to complete this topic [facility]-Rotavirus Vaccines Aged Out No lo nger eligible based on patient's age to complete this topic Medical Devices Implanted Type Area Associate Partner Device Identifier Shelf Expiration Date Model / Serial / Lot Cement Cranial Directinject 3cc - [id number] Implanted:Qty: 1 on 02/20/2023 by Reg Costello MD at [facility] Cement Left: skull Dilia Craniomaxillofacial ([id number] 10/15/2024 [id number] / / Plate, 2 Hole Low Profile - [id number] Implanted:Qty: 2 on 02/20/2023 by Reg Costello MD at [facility] Plate Synthes [id number] 02/21/2024 421.50 2 / / Catheter Codman Passer Disposable 36cm - [id number] Implanted:Qty: 1 on 02/20/2023 by Reg Costello MD at [facility] [employer] Keegan-[id number] 06/09/2027 [id number] / / [id number] Kit Ipg Vercise Genus R16 - [id number] Implanted:Qty: 1 on 02/20/2023 by Reg Costello MD at [facility] Avvo-[id number] 01/23/2025 DB-1216 / [id number] / [id number] Lead Extension Deep Brain Vercise - [id number] Implanted:Qty: 1 on 02/20/2023 by Reg Costello MD at [facility] [id number] DB-3128- 55B / / Lead Directional 45cm - [id number] Implanted:Qty: 1 on 02/20/2023 by Reg Costello MD at [facility] [id number] 08/18/2024 DB-2202- 45 / [id number] / [id number] Lead Directional 45cm - [id number] Implanted:Qty: 1 on 02/20/2023 by Reg Costello MD at [facility] [id number] 11/29/2024 DB-2202- 45 / [id number] / [id number] Screw Ti Matrixneuro Selfdrill 4mm - [id number] Implanted:Qty: 4 on 02/20/2023 by Reg Costello MD at [facility] Synthes [id number] 02/21/2024 04.503 .1 04. / / Procedures Procedure Name Priority Date/Time Associated Diagnosis Comments CBC WITH AUTO DIFFERENTIAL Routine 11/03/2024 11:02 AM EDT Multiple sclerosis (CMS/HCC) COMPREHENSIVE METABOLIC PANEL, PLASMA Routine 11/03/2024 11:02 AM EDT Multiple sclerosis (CMS/HCC) from Last 3 Months Results * CBC and differential (11/03/2024 11:02 AM EDT) [facility] WBC Count 8.02 3.70 - 10.30 10*3/uL LAB HEMATOLOGY METHOD 11/03/2024 11:27 AM EDT [facility] RBC Count 5.55 4.60 - 6.10 10*6/uL LAB HEMATOLOGY METHOD 11/03/2024 11:27 AM EDT [facility] HGB 16.5 13.7 - 17.5 g/dL LAB HEMATOLOGY METHOD 11/03/2024 11:27 AM EDT [facility] HCT 49.0 40.0 - 51.0 % LAB HEMATOLOGY METHOD 11/03/2024 11:27 AM EDT [facility] Platelet Count 235 155 - 369 10*3/uL LAB HEMATOLOGY METHOD 11/03/2024 11:27 AM EDT [facility] MCV 88 79 - 98 fL LAB HEMATOLOGY METHOD 11/03/2024 11:27 AM EDT [facility] MCH 29.7 26.0 - 32.0 pg LAB HEMATOLOGY METHOD 11/03/2024 11:27 AM EDT [facility] MCHC 33.7 30.7 - 35.5 g/dL LAB HEMATOLOGY METHOD 11/03/2024 11:27 AM EDT [facility] RDW 13.7 11.5 - 14.5 % LAB HEMATOLOGY METHOD 11/03/2024 11:27 AM EDT [facility] MPV 10.1 8.8 - 12.5 fL LAB HEMATOLOGY METHOD 11/03/2024 11:27 AM EDT [facility] nRBC 0.0 <=0.0 per 100 WBCs LAB HEMATOLOGY METHOD 11/03/2024 11:27 AM EDT [facility] Differential Type Automated LAB HEMATOLOGY METHOD 11/03/2024 11:27 AM EDT [facility] Neutrophils % 61 % LAB HEMATOLOGY METHOD 11/03/2024 11:27 AM EDT [facility] Lymphocytes % 23 % LAB HEMATOLOGY METHOD 11/03/2024 11:27 AM EDT [facility] Monocytes % 9 % LAB HEMATOLOGY METHOD 11/03/2024 11:27 AM EDT [facility] Eosinophils % 6 % LAB HEMATOLOGY METHOD 11/03/2024 11:27 AM EDT [facility] Basophils % 1 % LAB HEMATOLOGY METHOD 11/03/2024 11:27 AM EDT [facility] Immature Granulocytes % 0 % LAB HEMATOLOGY METHOD 11/03/2024 11:27 AM EDT [facility] Neutrophils Absolute 4.89 1.60 - 6.10 10*3/uL LAB HEMATOLOGY METHOD 11/03/2024 11:27 AM EDT [facility] Lymphocytes Absolute 1.87 1.20 - 3.90 10*3/uL LAB HEMATOLOGY METHOD 11/03/2024 11:27 AM EDT [facility] Monocytes Absolute 0.69 0.30 - 0.90 10*3/uL LAB HEMATOLOGY METHOD 11/03/2024 11:27 AM EDT [facility] Eosinophils Absolute 0.47 0.00 - 0.50 10*3/uL LAB HEMATOLOGY METHOD 11/03/2024 11:27 AM EDT [facility] Basophils Absolute 0.07 0.00 - 0.10 10*3/uL LAB HEMATOLOGY METHOD 11/03/2024 11:27 AM EDT [facility] Immature Granulocytes Absolute 0.03 0.00 - 0.06 10*3/uL LAB HEMATOLOGY METHOD 11/03/2024 11:27 AM EDT [facility] Blood Venous blood specimen / Unknown Venipuncture / Unknown 11/03/2024 11:02 AM EDT 11/03/2024 11:13 AM EDT [facility] - 11/03/2024 11:27 AM EDT Therapeutic decision making should be based on absolute values, rather than percentages. Carlos Reis MD LAB BLOOD ORDERABLES F inal Result [facility] [address] [place] [address] * (ABNORMAL) Comprehensive metabolic panel (11/03/2024 11:02 AM EDT) Glucose, Plasma 92 74 - 99 mg/dL 11/03/2024 11:40 AM EDT [facility] BUN, Plasma 11 7 - 21 mg/dL 11/03/2024 11:40 AM EDT [facility] Creatinine, Plasma 0.65(L) 0.70 - 1.20 mg/dL 11/03/2024 11:40 AM EDT [facility] BUN/Creatinine Ratio 17 11/03/2024 11:40 AM EDT [facility] Sodium, Plasma 138 136 - 145 mmol/L 11/03/2024 11:40 AM EDT [facility] Potassium, Plasma 4.1 3.6 - 4.9 mmol/L 11/03/2024 11:40 AM EDT [facility] Chloride, Plasma 101 97 - 107 mmol/L 11/03/2024 11:40 AM EDT [facility] CO2, Plasma 26 22 - 29 mmol/L 11/03/2024 11:40 AM EDT [facility] Anion Gap 11 6 - 16 mmol/L 11/03/2024 11:40 AM EDT [facility] Total Calcium, Plasma 9.2 8.9 - 10.2 mg/dL 11/03/2024 11:40 AM EDT [facility] Total Protein 7.7 6.3 - 7.9 g/dL 11/03/2024 11:40 AM EDT [facility] Albumin, Plasma 4.4 3.5 - 5.2 g/dL 11/03/2024 11:40 AM EDT [facility] AST, Plasma 21 10 - 50 U/L 11/03/2024 11:40 AM EDT [facility] Comment:Hemolyzed, result ma y be falsely increased. ALT, Plasma 14 10 - 50 U/L 11/03/2024 11:40 AM EDT [facility] Alkaline Phosphatase, Plasma 155(H) 40 - 115 U/L 11/03/2024 11:40 AM EDT [facility] Total Bilirubin, Plasma 0.2 0.2 - 1.1 mg/dL 11/03/2024 11:40 AM EDT [facility] eGFRcr 132.4 mL/min/1.7 3m*2 11/03/2024 11:40 AM EDT [facility] Comment:Reported eGFRcr in m L/min/1.73m2 is based the CKD-EPI 2020 equation that does not use a race coefficient. Blood Venous blood specimen / Unknown Venipuncture / Unknown 11/03/2024 11:02 AM EDT 11/03/2024 11:13 AM EDT Carlos Reis MD LAB BLOOD ORDERABLES F inal Result [facility] [address] [place] [address] from Last 3 Months [place] Directives * Full Code (Latest Code Status on File) Date Activated Date Inactivated Comments 02/28/2023 10:45 AM * Full Code Date Activated Date Inactivated Comments 02/20/2023 1:42 PM 02/28/2023 10:45 AM Question Answer Comments Patient has decision-making capacity? Yes Care Teams Plastic Tool Maker Relationship Specialty Start Date End Date Gloria Perez [address] [place] [address] PCP - General Family Medicine 06/20/22 Carlos Reis MD [address] [facility] [address] [place] [phone] Service Attending Neurology 05/07/22
--- OUTSIDE RECORDS SUMMARY | 2024-12-22 20:35 | XMS_ITS | Encounter Summary ---
Author Organization Healthcare Address [address] [place] [address] Care Team Providers Care Loading Unit Tool Setter Name Role Phone Carlos Reis MD Unavailable + [phone] Gloria Perez Primary Care Provider [phone] Encounter Details Date Type Department Care Team (Latest Contact Info) Description 11/03/2024 Travel Social History Tobacco Use Types Packs/Day [...] drink first t luther in the morning (EYE-LEDGER CLERK) to steady your nerves or to get [...] [address], [address] [place] [address] Carlos Reis MD [address] [address] documented as of this encounter Visit Diagnoses Not on filedocumented in this encounter Additional Health Concerns Assessment Noted Time A fall risk assessment has been complete d for the patient 11/03/2024 10:38 AM EDT A Body Mass Index follow-up plan has been documented for the patient 11/03/2024 11:54 AM EDT documented as of this encounter Care Teams Loading Unit Tool Setter Relationship Specialty Start Date End Date Gloria Perez [address] [place], [place] [id number] PCP - General Family Medicine 06/20/22 Carlos Reis MD [address] [address] Service Attending Neurology 05/07/22 documented as of this encounter
--- OUTSIDE RECORDS SUMMARY | 2024-12-22 20:35 | XMS_ITS | Patient Health Record ---
Author Organization [facility] Address [address] [place] [address] Care Team Providers Care Clinical Laboratory Director Name Role Phone Carlos Nogueira Primary Care Provider ALLERGIES Allergen (clinical drug ingredient) Drug/Non Drug Allergy documented on EMR Reaction Allergy Type Onset Date Status acetaminophen / hydrocodone HYDROcodone-Acetam inophen facial itching Drug Allergy Active REASON FOR REFERRAL No Information MEDICATIONS Medication SIG (Take, Route, Frequency, Duration) Notes Start Date End Date Status Claritin 10 MG 1 tab(s) orally once a day Active FLUoxetine HCl 20 MG 1 cap(s) orally onc e a day for 90 days Active Gabapentin 300 MG 1 cap(s) orally 2 times a day Active Tecfidera 120 MG 1 cap(s) orally 2 times a day for 7 day(s) Active Carbidopa-Levodopa ER 25-100 MG 1 tab(s) orally [address] John Active Ambien 5 MG 1 tab(s) orally once a day (at bedtime) for 30 days 07/26/2021 Active IMMUNIZATIONS Vaccine Route Administration Date Status Comme nts HPV9 (Gardasil) State 11 to 18 Yrs IM Intramuscular 01/03/2016 Administered Td Presv Free 7 Yrs to 18 Yrs State Unknown 11/29/2017 Administered SOCIAL HISTORY Tobacco Use: Social History Observation Description Date Details (start date - stop date) Former Smoker NA - NA Sex Assigned At : Social History Observation Description Sex Assigned At Unknown Tobacco Use: Question Answer Notes Are you a: former smoker When did you stop smoking? 09/2020 How long has it been since you last smoked? 1-3 months Additional Findings: Tobacco Non-User Current no n-smoker PROBLEMS Problem Type ICD Code Onset Dates Problem Status W/U Status Risk SNOMED Code Notes Problem Tinea unguium (B35.1) Active confirmed 932398720 Problem Multiple sclerosis (G35) Active confirmed HCC 66975064 sees Dr. Barros Problem Primary insomnia (F51.01) Active confirmed 7692994 Problem Anxiety (F41.9) Active confirmed 058424 02 Problem Dyslipidemia (E78.5) Active confirmed 226421426 Problem History of Hepatitis C (Z86.19) Active confirmed 55246658937193 Problem At risk for falling (Z91.81) Active confirmed HCC History of fall (733565214) Due to MS Problem Stress incontinence of urine (N39.3) Active confirmed 12880582 1.22-start on condom catheters, start on flomax. F/u in 3 mths 10/29-visit for Education for clean intermittent catheterization . Follow-up in 3 months. 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) (865396877) DMARD therapy Problem Insomnia due to medical condition (G47.01) Problem resolved confirmed 27036286 resent rozarem Problem Hepatitis C virus carrier state (B18.2) Problem resolved confirmed HCC [id number] Followed by gastroenterolog y PLAN OF TREATMENT No Information Insurance Providers Payer Name Payer Address Payer Phone Subscriber Number Group Number Insured Name Patient Relationship to Insured Coverage Start Date Coverage End Date MEDICAID [address] [address] [place] [address] [id number] [employer] Self - patient is the insured MEDICAL (GENERAL) HISTORY Medical History History ICD Code multiple sclerosis acute arthritis anxiety, depression seasonal allergies Insomnia due to medical condition (resol roshan 10/13/2020) Hepatitis C virus carrier state (resolve d 06/26/2021) Surgical History Surgery Date(Month/Year) right knee repair x 2 2013 port insert and removal left hip surgery right tibia repair 2009 Hospitalization History Reason Date(Month/Year) none
--- OUTSIDE RECORDS SUMMARY | 2024-12-22 20:35 | XMS_ITS | Encounter Summary ---
Author Organization [facility] Address [address] [place] [address] Care Team Providers Care Drying Unit Felting Machine Operator Name Role Phone Carlos Reis MD Unavailable + [phone] Gloria Perez Primary Care Provider [phone] Encounter Details Date Type Department Care Team (Late st Contact Info) Description 10/30/2024 Telephone [facility] [address] [place] [address] Maria Isabel Galeano, BAILIFF, DNP [address] [facility] [address] [place] [address] Social History Tobacco Use Types Packs/Day Years [...] drink first t luther in the morning (EYE-SOCIAL ECONOMIST) to steady your nerves or to get rid of a hangover? 0 02/22/2023 CAGE Questionnaire Score 0 023 Sex and Gender Information Value Date Recorded Sex Assigned at Not on file Legal Sex Male 10:31 AM EDT Gender Identity Not on file Sexual Orientation Not on file documented as of this encounter Miscellaneous Notes * Telephone Encounter - Maria Isabel Galeano APRN, DNP - 10/30/2024 3:25 PM EDT [facility] Pre-Infusion Screening Evens Andre has an appointment for ocrevus infusion on 11/03/2024. SARAH called patient to complete pre-infusion screening questions. Any side effects after last infusion appt? no Have you been sick recently? no Have you been on antibiotics recently or taking them currently? no Have you been admitted to the hospital or evaluated in the ER recently? no Any new diagnoses? no Have you seen your provider since last infusion? Yes If so, did they want to change medication or dose? N/A Labs specified in Ocrevus (ocrelizumab) therapy plan have resulted and are appropriate for infusion. yes, Labs 03/18/24: ALC 1.9, AST/ALT WNL; HBV negative 04/2022. Lab orders on TP. Has your insurance changed since last visit? no For patients prescribed Prolia (denosumab), Evenity (romosozumab), Boniva (ibandronate), or Reclast(zoledronic acid): Any recent or upcoming dental work? N/A N/A At time of screening, patient is appropriate to receive ocrevus infusion. Confirmed date, time, andlocation of appt with patient.. Interventions: None. Duration of phone call: 2 minutes Maria Isabel Galeano APRN, DNP [facility] documented in this encounter Plan of Treatment Upcoming Encounters Date Type Department Care Team (Late st Contact Info) Description 04/21/2025 9:30 AM EST Office Visit [place] [facility] [address] [place] [address] Carlos Reis MD [address] [place] [address] documented as of this encounter Visit Diagnoses Not on filedocumented in this encounter Additional Health Concerns Assessment Noted Time A fall risk assessment has been complete d for the patient 10/15/2024 8:50 AM EDT A Body Mass Index follow-up plan has been documented for the patient 10/15/2024 10:16 AM EDT documented as of this encounter Care Teams Drying Unit Felting Machine Operator Relationship Specialty Start Date End Date Gloria Perez [address] [place] [address] PCP - General Family Medicine 06/20/22 Carlos Reis MD [address] [facility] [address] [place] [address] Service Attending Neurology 05/07/22 documented as of this encounter
--- OUTSIDE RECORDS SUMMARY | 2024-12-22 20:35 | XMS_ITS ---
Author Organization [facility] Care Team Providers Care Lamp Cleaner Street Light Name Role Phone Gloria Burns Unavailable Unavailable Suzi Hazel Unavailable Unavailable Nahomy Jain Unavailable Unavailable Lisa Ga Unavailable Unavailable Lissa Fernandez Unavailable Unavailable Allergies and adverse reactions Code CodeSystem Substance Reaction Severity StartDate Concern Status 5489 RXNORM HYDROcodone Unknown 06/12/2023 active Care Team Name Role Address Phone Organization Dates Nahomy Jain [facility] [address], [address], [facility] (Office): : : [facility] 06/12/2023 - 10/28/2023 Gloria Burns [address] [place], [address], [facility] (Office): : : [facility] 06/12/2023 - 10/28/2023 Suzi Hazel [address] [place], [address], [facility] (Office): : [facility] 06/12/2023 - 10/28/2023 Lisatoo Ga [address] [place], [address], [facility] (Office): : : [facility] 06/12/2023 - 10/28/2023 Lissa Fernandez [address] [place], [address], [facility] (Office): : [facility] 06/12/2023 - 10/28/2023 Immunizations Immunization Status Vaccine Details Vaccine Code CodeSystem Date Notes TB 1 Step Mantoux (PPD) completed tuberculin skin test; unspecified formulation 98 CVX created date: 06/17/2023 administer ed date: 06/13/2023 Given by VERA read 06/15/23 by KT 0 mm TB 2 Step Mantoux Skin Test completed tuberculin skin test; unspecified formulation lotNumber: [id number] expiry: 09/07/2024 Mfg: [employer] Given 0.1 ml Right Forearm subcutaneously Step 1 of Multi-step with next step required 98 CVX created date: 06/20/2023 consent date: 06/20/2023 administer ed date: 06/20/2023 Read 06/22/23 by KT 0 mm TB 2 Step Mantoux Skin Test completed tuberculin skin test; unspecified formulation Step 2 of Multi-step with next step required 98 CVX created date: 06/23/2023 administer ed date: 06/20/2023 Influenza Seasonal 0.5mL cancelled Influenza, adjuvanted, inactivated, quadrivalent, injectable, preservative free 205 CVX created date: 06/18/2023 consent date: 06/18/2023 Resident family refused upon admissions. 06/12/23 Influenza Seasonal 0.5mL cancelled Influenza, high-dose, split virus, trivalent, injectable, preservative free 135 CVX created date: 06/13/2023 consent date: 06/13/2023 DTap completed diphtheria, tetanus toxoids and acellular pertussis vaccine, Haemophilus influenzae type b conjugate, and poliovirus vaccine, inactivated (JMkP-Cnp-HMH) 120 CVX created date: 06/13/2023 administer ed date: 01/23/2023 Pneumococcal 20 cancelled Pneumococcal conjugate vaccine 20-valent (PCV20), polysaccharide [id number] conjugate, adjuvant, preservative free 216 CVX created date: 06/18/2023 consent date: 06/18/2023 Family refused upon admission on 06/12/232022 Moderna COVID vaccine Spikevax XBB 1.5 cancelled SARS-COV-2 (COVID-19) vaccine, mRNA, spike protein, LNP, preservative free, 50 mcg/0.5 mL dose 312 CVX created date: 06/13/2023 consent date: 06/13/2023 Mental Status Section Date Assessment Total Score Description 10/28/2023 BIMS 11 moderate cognit karuna impairment CAM 0 No delirium ind icated PHQ-9 00 09/18/2023 BIMS 12 moderate cognit karuna impairment CAM 0 No delirium ind icated PHQ-9 00 Problems Problem # Description Date of onset Resolved Date Code CodeSystem Concern Status 1 OTHER LACK OF COORDINATION 08/30/[address] active 2 DEPRESSION, UNSPECIFIED 08/15/[address] active 3 INSOMNIA DUE TO OTHER MENTAL DISORDER 08/15/[address] active 4 ANXIETY DISORDER, UNSPECIFIED 06/20/[address] active 5 ABNORMAL POSTURE 06/13/[address] a ctive 6 DYSPHAGIA, OROPHARYNGEAL PHASE 06/13/[address] active 7 MUSCLE WEAKNESS (GENERALIZED) 06/13/[address] active 8 OTHER SYMBOLIC DYSFUNCTIONS 06/13/[address] active 9 ALLERGIC RHINITIS, UNSPECIFIED 06/12/[address] active 10 HISTORY OF FALLING 06/12/[address] active 11 INSOMNIA DUE TO MEDICAL CONDITION 06/12/2023 08/15/[address] completed 12 MAJOR DEPRESSIVE DISORDER, SINGLE EPISODE, UNSPECIFIED 06/12/2023 08/15/[address] completed 13 MULTIPLE SCLEROSIS 06/12/[address] active 14 NEUROMUSCULAR DYSFUNCTION OF BLADDER, UNSPECIFIED 06/12/[address] active 15 OTHER MUSCLE SPASM 06/12/[address] active 16 OVERACTIVE BLADDER 06/12/[address] T active 17 PAIN, UNSPECIFIED 06/12/[address] active 18 SEPSIS, UNSPECIFIED ORGANISM 06/12/2023 07/20/[address] completed 19 UNSPECIFIED NYSTAGMUS 06/12/[address] active 20 URINARY TRACT INFECTION, SITE NOT SPECIFIED 06/12/2023 07/10/[address] completed Reason for Referral No Reasons for Referral Entered Social History Social History Observation Description Start Date End Date Code Code System Current Smoking Status Tobacco smoking consumption unknown 033255461 SNOMED CT Sex Assigned At Male 1995 14175-9 [facility] Gender Identity Vital Signs Code Code System Vitals Name Values and Units Timing Information 14263-9 [facility] Pain Level Value=0.0 10/28/2023 35992-9 [facility] Weight Thded=135.8 Units=Lbs 08/2023 9279-1 [facility] Respiratory Rate Value=18.0 Units=/m in 09/07/2023 8310-5 [facility] Body Temperature Value=97.6 Units= F 09/07/2023 17875-1 [facility] O2 % BldC Oximetry Value=96.0 Units= % 09/07/2023 8462-4 [facility] Blood Pressure-Diastolic Value=60 Un its=mmHg 09/07/2023 8480-6 [facility] Blood Pressure-Systolic Hdajh=990 Un its=mmHg 09/07/2023 8867-4 [facility] Heart rate Value=68.0 Units=/min 8302-2 [facility] Height Value=72.0 Units=Inches 06/12/2023
--- NOTE | 2024-12-22 20:44 | ED_ITS ---
<Statement entered by Kait Ga MD - 12/22/24 23:23> I was consulted by the FELIPE, and we discussed the complexity of the problems being addressed. I approved the treatment and management plan for this patient's care in the emergency department, thus performing a substantive portion of the medical decision making. Kait Ga MD, REHANA, FACEP Discharge Plan Disposition Chief Complaint: Skin/Abscess/Foreign Body Prescriptions Prescriptions: New sulfamethoxazole-trimethoprim [Bactrim DS] 800-160 mg tablet 1 tab PO BID 10 Days Qty: 20 0RF amoxicillin-pot clavulanate 875-125 mg tablet 1 tab PO Q12H 10 Days Qty: 20 0RF Referrals Follow up/Referrals: Gloria Johnson APRN [Primary Care Provider, Medical] - See instructions Instructions Patient Instructions: DI for Skin Abscess Print Language Print Language: Mongolian Discharge ED Provider: Kait Ga General Adult HPI General Chief complaint: Skin/Abscess/Foreign Body Stated complaint: Facial Swelling Time Seen by Provider: 12/22/24 20:31 Mode of Arrival: EMS Source of Information: EMS Description of Symptoms (Recalled from ER Triage Doc. by RN): Weakness Pt presents to the ED via EMS with c/o L sided facial swelling. EMS rewports that the pt's business services assistant reported that the pt has L sided facial swelling. EMS reports that the pt has MS and at baseline has L sided weakness and slurred speech. EMS also reports that the pt's business services assistant reports that the pt had similar symptom when he had UTI. History of Present Illness HPI narrative: 29-year-old male presents to the ED today via EMS with complaint of left-sided facial swelling and weakness. Patient has MS and has difficulty with speech at baseline. Typically patient has weakness when he has had a UTI in the past. His mom is here and says that she is concerned about him having a UTI or an infection. He has a 99.1 temp at this time. He says his MS is being a asshole . Patient is very sweet and has a good attitude. Related Data Previous Rx's ?Medication ?Instructions ?Recorded amoxicillin 875 mg-potassium 1 tab PO Q12H 10 days #20 tabs 12/22/24 clavulanate 125 mg tablet sulfamethoxazole 800 1 tab PO BID 10 days #20 tab s 07/15/25 mg-trimethoprim 160 mg tablet (Bactrim DS) Allergies Allergy/AdvReac Type Severity Reaction Status Date / Time acetaminophen (From [place]) AdvReac Unknown Verified 12/22/24 20:44 allergy reaction hydrocodone (From [place]) AdvReac Unknown Verified 12/22/24 20:44 allergy reaction [facility] Disclaimer: The information contained in this section may have been updated after the patient was seen, as this information can be updated by other users. Medical History (Updated 12/22/24 @ 20:46 by Roopa Bernard RN) Suprapubic catheter Multiple sclerosis Surgical History (Updated 12/22/24 @ 20:46 by Roopa Bernard RN) S/P deep brain stimulator placement Social History Smoking Status: Never smoker alcohol intake: former current occupational status: other Travel in the last 8 weeks?: None ROS Obtained: Yes Systems reviewed as appropriate & no additional complaints except as documented Constitutional Constitutional: Reports as per HPI Physical Exam General General appearance: alert and in no apparent distress Head Head exam: normocephalic Eye Eye exam: Present PERRL and EOMI ENT ENT exam: Present normal oropharynx and mucous membranes moist Neck Neck exam: Present full ROM and trachea midline Respiratory Respiratory exam: Present normal lung sounds bilaterally Cardiovascular Cardiovascular exam: Present normal rhythm, tachycardia, normal heart sounds, +S1 and +S2 Abdominal Exam Abdominal exam: Present soft and normal bowel sounds Extremities Exam Extremities exam: Present normal capillary refill and other (Ataxia of the left side this is normal for him) Neurological Exam Neurological exam: Present alert, oriented X3 and normal gait Skin Skin exam: Present warm, dry and intact Medical Decision Making Medical Records Screening: Per USPSTF and CDC recommendations, given the prevalence of disease in our region, it is our hospital?s policy to screen for HIV and viral Hepatitis for all patients aged 18 and over and those with ongoing risk factors. Yared Inquiry Pt receiving controlled substance: No Yared was queried for this patient: No Vital Signs: 12/22/24 20:26 Temperature 99.1 F Temperature Source Oral Pulse Rate [Right] 105 H Respiratory Rate 14 Blood Pressure [Right Arm] 128/86 Blood Pressure Mean [Right Arm] 100 Blood Pressure Source [Right Arm] Automatic Cuff Blood Pressure Position [Right Arm] Sitting 02 Sat by Pulse Oximetry 97 Oxygen Delivery Method Room Air Lab Data Lab Results 12/22/24 20:20: WBC 13.7 H, RBC 5.46, Hgb 16.6, Hct 47.5, MCV 87.0, MCH 30.4, MCHC 34.9, RDW 13.2, Plt Count 250, MPV 10.1, Neut % (Auto) 72.8, Lymph % (Auto) 14.4, Nuckolls % (Auto) 10.2 H, Eos % (Auto) 1.9, Baso % (Auto) 0.4, Neut # (Auto) 10.0 H, Lymph # (Auto) 2.0, Nuckolls # (Auto) 1.4 H, Eos # (Auto) 0.3, Baso # (Auto) 0.1, Sodium 136, Potassium 3.8, Chloride 102, Carbon Dioxide 21 L, Anion Gap 16.8 H, BUN 15, Creatinine 0.70, Estimated Creat Clear 178, Estimated GFR 135, Est GFR ( Amer) 164, Glucose 96, Calcium 8.6, Magnesium 2.1, Total Bilirubin 0.5, AST 27, ALT 15, Alkaline Phosphatase 147 H, Troponin I < 0.01, Total Protein 8.2, Albumin 4.7, Globulin 3.5 H, Albumin/Globulin Ratio 1.3, Lipase 25, HCV Ab FRIEDA w/Rflx PCR Qn Reactive, HIV Ag/Ab Combo Qual Negative 12/22/24 20:47: SARS-CoV-2 (PCR) Not detected, Influenza A Untype (PCR) Not detected, Influenza Type B (PCR) Not detected 12/22/24 20:50: Urine Color Yellow, Urine Appearance Clear, Urine pH 6.0, Ur Specific [place] 1.025, Urine Protein Trace, Urine Glucose (UA) Negative, Urine Ketones Negative, Urine Blood Negative, Urine Nitrate Positive A, Urine Bilirubin Negative, Urine Urobilinogen 0.2, Ur Leukocyte Esterase Trace, Urine RBC None, Urine WBC 20-50, Ur Squamous Epith Cells None, Urine Bacteria 4+ 12/22/24 20:20 12/22/24 20:20 Orders (Tests/Meds): ED MEDICATIONS Discontinued Medications Generic Name Dose Route Start Last Admin Trade Name Freq PRN Reason Stop Dose Admin Amoxicillin/Clavulanate Potassium 1 each 12/22/24 22:23 Amoxicillin/Clavulanate Potassium 875/125mg Tablet PO 12/22/24 22:24 ONCE ONE Trimethoprim/Sulfamethoxazole 1 each 12/22/24 22:23 Sulfa/Trimethoprim 1 Tablet PO 12/22/24 22:24 ONCE ONE ORDERS Category Date Time Status Chest XR -- portable [XR chest portable] Stat Exams 12/22/24 20:32 Completed CBC [Complete Blood Count Auto Diff] Stat Lab 12/22/24 20:20 Completed Comprehensive Metabolic Panel Stat Lab 12/22/24 20:20 Completed HCV RNA PCR, Quant Stat Lab 12/22/24 20:20 Received HIV Combo Stat Lab 12/22/24 20:20 Completed Hepatitis C Ab Qual. W/ RFX Stat Lab 12/22/24 20:20 Completed Lipase Stat Lab 12/22/24 20:20 Completed Magnesium Stat Lab 12/22/24 20:20 Completed Rapid PCR Covid and Flu A/B Stat Lab 12/22/24 20:47 Completed Trop I [Troponin I] Stat Lab 12/22/24 20:20 Completed Troponin I Q3H Lab 12/22/24 23:45 Ordered Troponin I Q3H Lab 12/23/24 02:45 Ordered Urinalysis and Microscopic Stat Lab 12/22/24 20:50 Completed Urine Culture Stat Micro 12/22/24 20:50 Received Medical Decision Narrative: patient is a 29-year-old male presenting to the emergency department for evaluation of weakness and left-sided facial swelling. Patient is hemodynamically stable and nontoxic-appearing upon arrival, low-grade temp at 99.1. Differential diagnosis includes UTI, dental abscess, pneumonia, viral illness, among others. Workup will be conducted with hematologic labs, specific imaging. Patient alert and oriented. He is alert and oriented. Before his mom arrived to the emergency room he was able to give us his own information including his allergies. Mom is concerned about possible infection including UTI or pneumonia. He has been weak over the last couple of days which she is concerned about. We will wait for basic workup and imaging. Patient's white count was elevated at 13.7 but otherwise workup showed bladder infection. He gets his suprapubic catheter changed monthly and his appointment is on Saturday. Otherwise workup was negative. We discussed this with his mom. [facility] [place]. His first dose will be given here. He will have to take ambulance back home. Patient safe for discharge home Critical Care Critical Care Time Critical Care Time: No
[2024-12-22 20:53] LABS: Coronavirus 19, PCR Not Detected (NotDetected); Influenza A, PCR Not Detected (NotDetected); Influenza B, PCR Not Detected (NotDetected)
[2024-12-22 21:01] LABS: Microscopic, Urine URINE MICROSCOPIC (MICROSCOPIC)
[2024-12-22 21:02] LABS: Hematocrit 47.5 % (42.0-52.0); Hemoglobin 16.6 g/dL (14.1-18.0); Immature Granulocytes % 0.3 %; Mean Corpuscular HGB Conc 34.9 g/dL (31.8-35.4); Mean Corpuscular Hemoglobin 30.4 pg (27.0-31.2); Mean Corpuscular Volume 87.0 fl (80-94); Nucleated Red Blood Cells % 0 %; Platelet Count 250 K/mm3 (142-424); Red Blood Count 5.46 M/mm3 (4.60-6.20); Red Cell Distribution Width-SD 41.4 fL; White Blood Count 13.7 K/mm3 (4.8-10.8)
[2024-12-22 21:05] LABS: Albumin Level 4.7 g/dl (3.5-5.0); Chloride 102 mmol/L (98-107)
[2024-12-22 21:06] LABS: Bilirubin,Urine Negative (Negative); Color,Urine YELLOW (Yellow); Glucose,Urine (UA) Negative (Negative); Ketones,Urine Negative (Negative); Leukocyte Esterase,Urine TRACE (Negative); PH,Urine 6.0 (5.0-8.5); Protein,Urine TRACE (Negative); Specific Gravity, Urine 1.025 (1.005-1.030); Urobilinogen,Urine 0.2 EU/dl (0.2)
[2024-12-22 21:06] LABS: Potassium 3.8 mmoL/L (3.5-5.1); Sodium 136 mmol/L (136-145)
[2024-12-22 21:08] LABS: Alanine Aminotransferase 15 U/L (12-78); Albumin/Globulin Ratio 1.3 (1.1-1.8); Alkaline Phosphatase 147 U/L (38-126); Anion Gap 16.8 mEq/L (5-15); Aspartate Amino Transferase 27 U/L (17-59); Bilirubin,Total 0.5 mg/dl (0.2-1.3); Blood Urea Nitrogen 15 mg/dl (9-20); Carbon Dioxide 21 mmol/L (22.0-30.0); Creatinine Clearance Estimated 178 mL/min (50-200); Creatinine,Serum 0.70 mg/dl (0.66-1.25); Estimated Glomerular Filt Rate 135 ml/min (>60); GFR (African American) 164 ML/MIN (>60); Globulin 3.5 g/dL (1.3-3.2); Total Protein,Serum 8.2 g/dl (6.3-8.2)
[2024-12-22 21:09] LABS: Calcium 8.6 mg/dl (8.4-10.2); Glucose 96 mg/dl (74-100); Lipase 25 U/L (23-300); Magnesium 2.1 mg/dl (1.6-2.3)
[2024-12-22 21:23] LABS: WBC,Urine 20-50 #/hpf (0-3)
[2024-12-22 21:28] LABS: Bacteria,Urine 4+ /lpf
[2024-12-22 21:42] LABS: Troponin I < 0.01 ng/ml (0.00-0.034)
[2024-12-22 21:58] LABS: Hepatitis C Ab Qual. W/ RFX REACTIVE (Negative)
[2024-12-22 22:00] VITALS: BP 123/83
[2024-12-22] MEDS: SULFA/TRIMETHOPRIM 1 TABLET 1 EACH PO (22:28)
[2024-12-22] MEDS: AMOXICILLIN/CLAVULANATE POTASSIUM 875/125MG TABLET 1 EACH PO (22:28)
[2024-12-22 22:30] VITALS: BP 131/91; PULSE 87; RESP 22; O2SAT 98
--- NOTE | 2024-12-22 22:37 | PC.NURSE ---
EMS called for transportation
[2024-12-22 23:01] VITALS: BP 131/91; PULSE 87; RESP 16; TEMP 36.9; O2SAT 18
--- NOTE | 2024-12-22 23:01 | PC.NURSE ---
pt has dental swelling in jaw and teeth are rotten and needs to follow up with dentist
[2024-12-22 23:03] VITALS: BP 131/91; PULSE 87; RESP 22; TEMP 36.4; O2SAT 98
--- NOTE | 2024-12-25 11:18 | PC.NURSE ---
I discussed the pts prelim urine culture results with . No change needed to treatment plan at this time.
== END 2024-12-22 23:04 | disposition home or self-care (01) ==
PROVIDERS: Nurse Practitioner; Emergency Provider Student in an Organized Health Care Education/Training Program; PCP Nurse Practitioner Family
DX: N39.0 Urinary tract infection, site not specified (principal); R22.0 Localized swelling, mass and lump, head; G35 Multiple sclerosis
CPT/HCPCS: 71045; 80053; 81001; 83690; 83735; 84484; 85025; 86803; 87086; 87088; 87186; 87389; 87522; 87636; 99284

== ENCOUNTER 2025-03-18 06:35 | Day surgery (SDC) | payer MEDICAID, SELFPAY ==
--- NOTE | 2025-03-17 13:16 | SUR.PREOP ---
attempted to call pt's mother multiple times today and voicemail is not set up
[2025-03-17 15:05] VITALS: BMI 23.7
[2025-03-18] VITALS (7 sets, daily range): BP systolic 127–158; BP diastolic 57–93; PULSE 84–130; RESP 14–18; TEMP 36.1–36.6; O2SAT 93–99
[2025-03-18] MEDS: LIDOCAINE 1% W/EPI 1:100,000 20ML VIAL 40 ML (08:10)
--- NOTE | 2025-03-18 10:20 | EXP.ANES.I ---
[facility] Anesthesia Record Part I Anesthesia Record I Intake, IV Amount: 600 Hydration: Adequate Estimated blood loss (mL): 250 Urine output (mL): 0 Blood Products used (#): none Blood Pressure: 127/91 SaO2: 99 Pulse Rate: 105 Airway Patency: Patent Respiratory Rate: 14 Temperature: 97.0 F Patient is:: Drowsy and Stable Stable to PACU at:: 10:15
[2025-03-18] MEDS: HYDROMORPHONE 2MG/ML SYRINGE 0.5 MG IV ×4 (10:25→10:40)
[2025-03-18] MEDS: ONDANSETRON 4MG/2ML VIAL 4 MG IV (10:32)
[2025-03-18] MEDS: MORPHINE 2MG/ML SYRINGE 1 MG IV ×2 (10:41→10:46)
[2025-03-18] MEDS: FENTANYL 100MCG/2ML VIAL 100 MCG (10:55)
[2025-03-18] MEDS: KETOROLAC 30MG/ML VIAL 30 MG IV (11:03)
--- NOTE | 2025-03-18 15:21 | HMH.ORALP ---
Operative Note Date of procedure: 03/18/25 Date of : [birth year] Pre-op Diagnosis:: Non Restorable Teeth-Full Mouth Post-op diagnosis:: same Procedure performed:: Full mouth x-ray, full mouth extractions of tenty seven teeth and bone smoothing. Surgeon:: Paige Estes DMD Flight Director(s):: Diane Mccloud COAL TRAM DRIVER:: Other Anesthesia: GETA Estimated blood loss (mL): 250 Operative note:: 30 year old male transported to [facility] by his mother. From the holding room the patient was taken per stretcher to the operating room. In the operating room the patient had an IV started and then was nasotracheal intubated with smooth mask induction. There was no anesthetic interruptions or problems today. The patient was draped in usual manner. 18 intra-oral x-rays were taken today. The throat was suctioned free of debris and one single moist throat pack was placed in the posterior oropharynx. A complete intra-oral exam and review of x-rays was completed today. This patient was found to have non restorable decay in all of his teeth that were extracted today. The following teeth were extracted 2,3,4,5,6,7,8,9,10,11,12,13,14,15,18,20,21,22,23,24,25,26,27,28,29,30, and 31. Using #15 blade and periosteal to elevate a buccal flap, Then using a Surgical hand piece with a #6 surgical bur to remove buccal, distal and mesial bone for better leverage and perches, Using upper and lower forceps to deliver teeth in total. Removed sharp bone using bone file. Curetted and irrigated extraction sockets well. All root tips were extracted. Mojgan was removed on the LL, LR using a surgical hand piece with a #8 bur. Closed all four quads of tissue with 3-0 chromic gut suture running mattress style suturing and single interrupted sutures. 10 mg hospital vial lidocaine with epi drawn up by the O.R. nurse then Dr. Estes did local infiltration in all quads for hem control. The patient tolerated all procedures and anesthesia well without complications. Patient was discharged home same day in care of mother. Disposition: same day Specimens:: 2,3,4,5,6,7,8,9,10,11,12,13,14,15,18,20,21,22,23,24,25,26,27,28,29,30, and 31. Complications:: none
--- NOTE | 2025-03-19 16:35 | EXP.ANES.II ---
[facility] Anesthesia Record Part II Anesthesia Record Part II Discharge Time: 12:15 Destination: Surgical Day Care (OP Surgery) PACU nurse assessment reviewed?: Yes Patient Condition:: Good Anesthesia Complications:: None Swallowing reflex intact?: Yes Airway Patency: Patent Cyanosis?: No Blood Pressure: 144/80 SaO2: 95 Respiratory Rate: 18 Pulse Rate: 119 Temperature: 97.9 F Mental Status: Alert & Oriented Pain level:: 0 Nausea and/or vomitting:: None Intake, IV Amount: 0 Hydration: Adequate
[2025-03-19 16:38] VITALS: BP 144/80; PULSE 119; RESP 18; TEMP 36.6; O2SAT 95
== END 2025-03-18 12:30 | disposition home or self-care (01) ==
PROVIDERS: Visit Provider Dentist General Practice
PROC: (CPT 41899; principal; 2025-03-18 08:00)
PROC: (CPT 41899; 2025-03-18 08:00)
DX: K08.89 Other specified disorders of teeth and supporting structures (principal); G35.B0 Primary progressive multiple sclerosis, unspecified; Z88.6 Allergy status to analgesic agent; E55.9 Vitamin D deficiency, unspecified; F41.9 Anxiety disorder, unspecified; F32.A Depression, unspecified; G47.00 Insomnia, unspecified; N32.81 Overactive bladder; Z88.5 Allergy status to narcotic agent; Z79.899 Other long term (current) drug therapy; Z87.891 Personal history of nicotine dependence
CPT/HCPCS: 41899; J1100; J1171; J1596; J1885; J2003; J2004; J2250; J2270; J2405; J2704; J3010

== ENCOUNTER 2025-05-10 21:29 | Observation (INO) | payer MEDICAID, SELFPAY ==
--- OUTSIDE RECORDS SUMMARY | 2025-05-10 21:38 | XMS_ITS | Encounter Summary ---
Author Organization Healthcare Address [address] [place] [address] Care Team Providers Care Machine Chain Maker Name Role Phone Carlos Reis MD Unavailable + [phone] Gloria Perez Primary Care Provider [phone] Encounter Details Date Type Department Care Team (Late st Contact Info) Description 04/22/2025 Orders Only [place] [facility] [address] [place] [address] Carlos Reis MD [address] [place] [address] Secondary progressive multiple sclerosis (Primary Dx); Multiple sclerosis Social History Tobacco Use Types Packs/Day Years [...] drink first t luther in the morning (EYE-DOCUMENT PHOTOGRAPHER) to steady your nerves or to get rid of a hangover? 0 02/22/2023 CAGE Questionnaire Score 0 023 Sex and Gender Information Value Date Recorded Sex Assigned at Not on file Legal Sex Male 10:31 AM EDT Gender Identity Not on file Sexual Orientation Not on file documented as of this encounter Miscellaneous Notes * Progress Notes - Linnette Davis, PharmD - 04/22/2025 11:25 AM EST Infusion team requesting order for next dose of Ocrevus due 05/06/25. Patient received last dose ofOcrevus on 11/03/24 at [facility]. Patient last seen by Dr. Reis on 10/15/24 and instructed to continue infusion therapy. Per Dr. Reis, okay to go ahead and enter therapy plan for next dose to facilitate scheduling. Will reachout to front end mechanic staff to assist with rescheduling missed office visit on 04/21/25. Labs last drawn 11/03/24. CBC w diff and CMP appropriate for continuation of Ocrevus. Will add repeat labs to therapy plan to be drawn at the time of next infusion. Entering therapy plan and sending to for review and signature if appropriate. documented in this encounter Plan of Treatment Upcoming Encounters Date Type Department Care Team (Late st Contact Info) Description 05/19/2025 10:30 AM EST Office Visit [place] [facility] [address] [place] [address] Carlos Reis MD [address] [place] [address] 06/09/2025 10:00 AM EST Appointment [facility] [address] [place] [address] documented as of this encounter Visit Diagnoses Diagnosis Secondary progressive multiple sclerosis- Primary Multiple sclerosis Multiple sclerosis documented in this encounter Additional Health Concerns Assessment Noted Time A fall risk assessment has been complete d for the patient 11/03/2024 10:38 AM EDT A Body Mass Index follow-up plan has been documented for the patient 11/03/2024 11:54 AM EDT documented as of this encounter Care Teams Machine Chain Maker Relationship Specialty Start Date End Date Gloria Perez [phone] PCP - General Family Medicine 06/20/22 Carlos Reis MD [address] [facility] [address] [place] [phone] Service Attending Neurology 05/07/22 documented as of this encounter
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
--- OUTSIDE RECORDS SUMMARY | 2025-05-10 21:38 | XMS_ITS | Continuity of Care Document ---
Author Organization [facility] Address [address] [place] [address] Assessment Encounter Date Assessment Date Assessment LastModified by Organization Details LastModified Time 03/25/2025 03/25/2025 Service was provided using [employer] medicine. The patient verbally consents to virtual services and the consent is documented in the medical record prior to using the service. Patient is located at their place of residence in [facility]. Provider is located at medical clinic in [facility]. Names and roles of all persons participating in telemedicine services include:jacek borden, elio lopez, evens andre and mother/caregiver dennise santiago Not available 03/25/2025 13:54:30 Plan of Treatment Reminders Order Date Submit Date Provider Last Modified By Organization Details Last Modified Time Details Appointments Follow Up 2024 04:20P M Citlaly Park, DO Not available Not available Not available Procedur e 40 mins 2024 10:20A M Shireen Floyd, BIO[employer] RESEARCH SCIENTIST Not available Not available Not available Telemedi cine 20 2024 10:40A M Elio Lopez, BIO[employer] RESEARCH SCIENTIST Not available Not available Not available Lab None recorded . Referral speech language patholog ist referral - pt needs assessme nt for communic ation device 2024 025 [email or web address] [facility], [address], [place], [address], 04/22/2025 17:39:41 Procedures None recorded . Surgeries None recorded . Imaging None recorded . Medication Orders None recorded . Patient TargetsNo targets recorded. Patient Instructions Encounter Date Encounter Id Patient Instructions Last Modified By Organization Details Last Modified Time 03/25/2025 [id number] Due to the natur e of telemedicine, the ability to do a physical assessment was limited to what can be accomplished by patient directed video conferencing. Those limits are understood by the patient and myself. Impression is based on history, available information, and physical findings accomplished with video assistance. Risk and benefits of any new medications were discussed and all questions answered. Advised to call for new, worsening or persistent symptoms. The patient/parent/ca regiver was advised that telehealth is not appropriate for emergencies. Patients are always encouraged to go to the nearest emergency department for urgent or life-threatening issues. Should an emergency arise during this telemedicine visit, appropriate emergency procedures will be followed including contacting local emergency services or the client's designated emergency contact. rtc 2 months Not available 03/25/2025 14:49:57 Reason for Referral Speech Language Pathologist Referral for Difficulty communicating pt needs assessment for communication device Referring Physician: Elio Lopez, Family Medicine, Encounter Date: 03/25/2025 Problems Name Problem SNOMED Code Status Onset Date Resolution Date Notes Provider Name and Address Organization Details Recorded Time Depressive disorder 11470407 Active 2021 Nhung Yan null, [place] - [facility] 08:33:26 Anxiety 48960997 Active 2021 Nhung Yan [place], [place] - [facility] 08:33:32 Chronic back pain 668966375 Active 2021 Love Alicea null, [place] - [facility] 2 13:51:27 Multiple sclerosis 31588003 Active 2021 Nhung Yan [place] - [facility] 08:33:44 Insomnia 208881802 Active 2021 Love Alicea [place], [place] - [facility] 2 13:52:49 Spasm of urinary bladder 562717136 Active 2022 Shireen Floyd, BIOFUELS RESEARCH SCIENTIST [address], [place], [address] , [place] - [facility] 3 15:50:55 Hyperlipid emia 02091691 Active 2023 Nhung Yan null, [place] - [facility] 5 08:33:37 Overactive urinary bladder 322726044 Active 2023 Gloria Johnson, BIOFUELS RESEARCH SCIENTIST [address], [place], [address] , [place] - [facility] 4 08:22:02 Fissure in skin of bilateral feet 067328701 Active 2023 Gloria Johnson, BIO[employer] RESEARCH SCIENTIST [address], [place], [address] , [place] [facility] 4 08:22:05 Intention tremor 81432982 Active 2024 Gloria Johnson, B[employer] RESEARCH SCIENTIST [address], [place], [address] , [place] [facility] 15:34:52 Dystonia 06416396 Active 2024 Gloria Johnson, BIOFUELS RESEARCH SCIENTIST [address], [place], [address] , [place] [facility] 5 15:34:54 Vitamin D deficiency 49967734 Active 2024 Gloria Jhonson, BIOFU[employer]S RESEARCH SCIENTIST [address], [place], [address] , [place] [facility] 5 15:35:08 Constipati on 53928168 Active 2024 Gloria Johnson, BIOFUELS RESEARCH SCIENTIST [address], [place], [address] , [place] [facility] 5 15:35:10 Primary progressiv e multiple sclerosis 362591169 Active 2024 Elio Lopez, BIOFUELS RESEARCH SCIENTIST [address], [place], [address] , [place] [facility] 5 12:42:20 Mixed urinary incontinen ce 325082172 Active 2024 Nhung Yan null, [place] - [facility] 09:20:36 Toothache 61531331 Active 2024 Citlaly Park, DO [address], [place], [address] , [place] [facility] 10:15:39 Bacterial conjunctiv itis 199626794 Active 2024 Citlaly Park DO [address], [place], [address] , [place] [facility] 10:16:45 Inadequate oral intake 8364699865872 01 Active 2024 Citlaly Park DO [address], [place], [address] , [place] [facility] 13:58:18 Problem Notes None recorded. Procedures Surgical History Date Name Laterality Status Provider Name and Address Organization Details Recorded Time 04/21/20 25 Suprapubic Catheter Change completed Shireen Mariel, [employer]EARCH SCIENTIST [address], [place], [address], [place] [facility] 04/21/2025 16:13:43 10/15/19 25 Suprapubic Catheter Change completed Shireenblanca Floyd [employer] RESEARCH SCIENTIST [address], [place], [address], [place] [facility] 10/14/2024 15:06:09 08/13/19 25 Suprapubic Catheter Change completed Shireenblanca Floyd, BIO[employer]S RESEARCH SCIENTIST [address], [place], [address], [place] [facility] 08/12/2024 14:21:04 07/09/19 25 Bladder Irrigation completed Shireen Vivian, BIO[employer] RESEARCH SCIENTIST [address], [place], [address], [place] [facility] 07/09/2024 11:46:13 07/09/19 25 Suprapubic Catheter Change completed Shireen Floyd BIOFUELS RESEARCH SCIENTIST [address], [place], [address], [place] [facility] 07/09/2024 11:46:34 05/21/20 24 Suprapubic Catheter Change completed Shireen Floyd BIOFUELS RESEARCH SCIENTIST [address], [place], [address], [place] [facility] 05/21/2024 11:40:33 04/29/20 24 Medication Reconcilliation cancelled Radha Brooks [place] - [facility] 04/27/2024 11:47:16 04/15/20 24 Suprapubic Catheter Change completed Shireen Floyd BIOFUELS RESEARCH SCIENTIST [address], [place], [address], [place] [facility] 04/15/2024 09:43:31 12/31/19 24 Suprapubic Catheter Change completed Shireen Floyd APRN [address], [place], [address], [place] [facility] 12/31/2023 15:24:03 11/12/19 24 Suprapubic Catheter Change completed Shireen Floyd APRN [address], [place], [address], [place] [facility] 11/12/2023 12:38:46 11/14/19 Suprapubic Catheter Change completed Shireen Folyd APRN [address], [place], [address], [place] [facility] 11/13/2022 16:09:36 10/11/19 Suprapubic Catheter Change completed Shireen Floyd APRN [address], [place], [address], [place] [facility] 10/10/2022 15:35:42 09/15/19 23 Suprapubic Catheter Change completed Shireen Floyd APRN [address], [place], [address], [place] [facility] 09/14/2022 15:42:53 08/16/19 23 Suprapubic Catheter Change completed Shireen Floyd APRN [address], [place], [address], [place] [facility] 08/15/2022 15:48:10 08/11/19 23 Suprapubic Catheter Change completed Shireen Floyd APRN [address], [place], [address], [place] [facility] 08/10/2022 12:15:22 Unlisted px foot/toes completed Love Alicea [place] - [facility] 01/18/2022 13:54:42 procedure on gallbladder completed Love Alicea [place] [facility] 01/18/2022 13:54:49 procedure on tibia completed Love Alicea [place] [facility] 01/18/2022 13:55:01 catheterization completed Love Alicea [place] [facility] 04/20/2022 13:37:03 Knee Surgery completed Jacek Borden [place] - [facility] 02/18/2025 11:10:23 Imaging Results None recorded. Procedure Notes None recorded. Medical Equipment None Reported. Allergies Allergen ID Allergen Name Allergen Category Reaction Reaction Severity Criticality Documentation Date Start Date Code Code System Note Provider Name and Address Organization Details Recorded Time 787037 acetamino phen / hydrocodo ne medicatio n hives moderate Not available 12/31/20232023 79876 2 RxNorm Cande starr, [place] - [facility] 4 15:16:55 679267 hydrocodo ne Not available hives Not available high 05/10/20252023 5489 RxNorm Not Available [email or web address] - External Data Service - prod 11:35:53 [...] Not Available Not Available Not Available Vitals None Recorded Social History Question Answer Notes LastModified by Organizat ion Details LastModified Time Tobacco Smoking Status Former Smoker Love Alicea null, [place] - [facility] 04/20/2022 13:36:44 Do You Have An Advance Directive? No Information not available 01/18/2022 Are You Blind Or Do You Have Difficulty Seeing? No [email or web address] Information not available 01/18/2022 Is Blood Transfusion Acceptable In An Emergency? Yes [email or web address] Information not available 02/18/2025 What Is Your Level Of Caffeine Consumption? None [email or web address] Information not available 01/18/2022 How Much Tobacco Do You Chew? None [email or web address] Information not available 02/18/2025 Are You Deaf Or Do You Have Serious Difficulty Hearing? No [email or web address] Information not available 01/18/2022 Which Illicit Or Recreational Drugs Have You Used? Methanfetimine [email or web address] Information not available 03/01/2025 What Is The Highest Grade Or Level Of School You Have Completed Or The Highest Degree You Have Received? [id number] [email or web address] Information not available 02/18/2025 Have There Been Any Changes To Your Family Or Social Situation? No Information not available 01/18/2022 What Is The Fluoride Status Of Your Home? Fluoridated [email or web address] Information not available 01/18/2022 When Did You Quit Smoking? 6-10yearssincelast cigarette [email or web address] Information not available 03/01/2025 How Many Years Have You Used Illicit Or Recreational Drugs? 4 Information not available 03/01/2025 Do You Have A Medical Power Of Product Control And Logistics Analyst? No Information not available 01/18/2022 What Was The Date Of Your Most Recent Tobacco Screening? 01/21/2025 Information not available 01/21/2025 What Is Your Current Pack Years? 10packyears [email or web address] Information not available 12/31/2023 Do You Use Protection Against STDs? No [email or web address] Information not available 03/01/2025 What Is Your Relationship Status? Single [email or web address] Information not available 02/18/2025 Do You Use Your Seat Belt Or Car Seat Routinely? Yes [email or web address] Information not available 02/18/2025 Are You Sexually Active? No [email or web address] Information not available 01/18/2022 Do You Have Smoke And Carbon Monoxide Detectors In Your Home? Yes [email or web address] Information not available 01/18/2022 At What Age Did You Start Smoking Tobacco? 16 Information not available 03/01/2025 Are You Passively Exposed To Smoke? No Information not available 01/18/2022 How Much Tobacco Do You Smoke? No [email or web address] Information not available 04/20/2022 Do You Use Sunscreen Routinely? Yes Information not available 03/01/2025 Has Tobacco Cessation Counseling Been Provided? Yes [email or web address] Information not available 01/18/2022 On What Date Was Tobacco Cessation Counseling Provided? 01/21/2025 Information not available 01/21/2025 How Many Years Have You Smoked Tobacco? 6 [email or web address] Information not available 03/01/2025 Do You Have Difficulty Walking Or Climbing Stairs? Yes [email or web address] Information not available 01/18/2022 Sex: Male Functional Status Question Answer Note LastModified by [employer] ion Details LastModified Time Do you use any illicit or recreational drugs? No [email or web address] Information not available 01/18/2022 Do you or have you ever used any other forms of tobacco or nicotine? No Information not available 01/18/2022 What is your level of alcohol consumption? None [email or web address] Information not available 01/18/2022 Do you or have you ever used smokeless tobacco? Never used smokeless tobacco [email or web address] Information not available 03/01/2025 Are you currently employed? No [email or web address] Information not available 01/18/2022 Do you have transportation difficulties? Yes [email or web address] Information not available 01/18/2022 Are you able to walk independently without assistance or assistive devices? NOWALK [email or web address] Information not available 01/18/2022 Do you have difficulty doing errands alone? Yes [email or web address] Information not available 01/18/2022 Are you able to care for yourself independently? No [email or web address] Information not available 01/18/2022 Do you have difficulty dressing, bathing, grooming, or toileting? Yes [email or web address] Information not available 01/18/2022 Do you or have you ever used e-cigarettes or vape? Former user of electronic cigarettes [email or web address] Information not available 03/01/2025 What is your exercise level? None [email or web address] Information not available 02/18/2025 Mental Status Question Answer Note LastModified by Organizat ion Details LastModified Time Do you feel stressed (tense, restless, nervous, or anxious, or unable to sleep at night)? [id number] [email or web address] Information not available 02/18/2025 Do you have difficulty concentrating, remembering or making decisions? Yes [email or web address] Information no t available 01/18/2022 Family History Relationship Description Onset Age of this Age Resolved Age Notes LastModified by Organization Details LastModified Time Mother Diabetes mellitus [email or web address] Not available 2021 13:52:58 Mother Depressive disorder [email or web address] Not available 2024 11:10:22 Mother Obesity Not available 02/18/2025 11:10:23 Maternal Uncle Obesity [email or web address] Not available 02/19/20 11:10:23 Brother Asthma [email or web address] Not available 02/18/2025 11:10:23 Medical History Condition Response Depression Y Constipation Y Anxiety Disorder Y Muscle, Joint, or Bone Problems Y Vision or Eye Problems Y Insomnia Y Immunizations Vaccine Type Date Status Note Provider Nam e and Address Organization Details Recorded Time Tdap 01/23/2023 completed Nhung Yan [facility], [place] - [facility] 01/23/2023 16:41:38 Influenza, split virus, trivalent, PF 03/01/2025 completed Citlaly Park DO [address] [place] [address], [address], [place] - [facility] 03/01/2025 10:17:22 Past Encounters Encounter ID Performer Location Encounter Start Date Encounter Closed Date Diagnosis/Indication Diagnosis SNOMED-CT Code Diagnosis ICD10 Code Diagnosis IMO Codes Diagnosis Note [id number] Citlaly Park DO [facility] [address] [place] [address] 03/01/2025 08:54:59 03/01/2025 10:24:57 Influenza vaccine needed 6695396388 106 Z23 Primary pr ogressive multiple sclerosis 520814615 G35 5332773 Toothache 89867221 K08.8 9 90002 Full extraction planned. Patient is clear for oral surgery. Bacterial conjunctivitis 229793757 H10.9 60770 Inadequate oral intake 9188948983 32249 E63.9 04549119 The patient requires at least 3 cans of daily Ensure Plus to supplement nutrition due to inadequate oral nutritiona l intake. This is necessary to avoid malnutriti on or weight loss. Failure to supplement nutrition may result in failure to thrive and deteriorat ion due to multiple sclerosis. [id number] Elio Lopez [employer]FU[employer] RESEARCH SCIENTIST [facility] [address] [place] [address] 03/25/2025 13:26:13 03/25/2025 16:31:22 Primary progressive multiple sclerosis 965973315 G35.B0 5551537 follows with neuro q 6 months for infusions. Intention tremor 9238317 6 G25.2 82896 chronic. Depressive disorder 3548 9007 F32.A continue rexulti at present dose.ashanti nue fluoxetine at present dose. Aggressive behavior 6137 2000 R46.89 0841549 greatly improved.c ontinue rexulti at present dosediscus sherice of mother with risks; benefits and adverse effects including EPS which is different than his spastic tremors. monitor closely. Anxiety 40765784 F41.9 continue buspirone at present dose. no changes at this time. Difficulty communicating 889092448 F80.9 82593177 Health Concerns Section Related Observation LastModified by Organization Detai ls LastModified Time None Recorded Concern Status LastModified by Organization Details LastModified Time None Recorded Payers Encounter Date Sequence Insurance Name Policy Number Policy Cary Covered Member ID Cary Member ID Guarantor Name 03/25/2025 1 [place] [employer] [place] [employer] - FFS/TRADITIO ALO Andre [id number] Evens Andre Notes Date Note Type Note Provider Name and Address Organization Details Recorded Time 03/25/2025 text/html Mother and pt report that sleep is greatly improved with the trazodone. mood and irritability have improved as well. he has had recent dental extraction of all teeth recently and is recovering. plan is for dentures and/dental implants in 4 months. he is on liquid diet now and no evidence of aspiration per mom. speech is poorly articulated and difficult for pt as usual. He and mother are interested in a communication device. Elio Lopez, B[employer] RESEARCH SCIENTIST [address], [place], [address], [place] - [facility] 03/25/2025 14:50:12
--- OUTSIDE RECORDS SUMMARY | 2025-05-10 21:38 | XMS_ITS | Continuity of Care Document ---
Author Organization Susan Singh [facility] Residency Address [address] [place] [address] Assessment No assessment recorded. Plan of Treatment Reminders Order Date Submit Date Provider Last Modified By Organization Details Last Modified Time Details Appointments Follow Up 2024 04:20P M Citlaly Park, DO Not available Not available Not available Procedur e 40 mins 2024 10:20A M Shireen Floyd, WELLNESS ASSISTANT Not available Not available Not available Telemedi cine 20 2024 10:40A M Ivon Lopez, WELLNESS ASSISTANT Not available Not available Not available Lab None recorded . Referral None recorded . Procedures None recorded . Surgeries None recorded . Imaging None recorded . Medication Orders ofloxaci n 0.3 % eye drops 2024 025 [facility] [id number], [address] [place] [address], [id number], 03/01/2025 10:17:25 Patient TargetsNo targets recorded. Patient InstructionsNo instructions recorded. Reason for Referral None Reported. Problems Name Problem SNOMED Code Status Onset Date Resolution Date Notes Provider Name and Address Organization Details Recorded Time Depressive disorder 14331418 Active 2021 Nhung Yan null, [facility] 08:33:26 Anxiety 60235218 Active 2021 Nhung Yan null, [facility] 08:33:32 Chronic back pain 324954029 Active 2021 Love Alicea null, [facility] 2 13:51:27 Multiple sclerosis 53361045 Active 2021 Nhung Yan null, [place] - [facility] 5 08:33:44 Insomnia 486749182 Active 2021 Love Alicea null, [place] - [facility] 2 13:52:49 Spasm of urinary bladder 039029512 Active 2022 Shireen Floyd, WELLNESS ASSISTANT [address], [place], [address] , [place] - [facility] 3 15:50:55 Hyperlipid emia 26317097 Active 2023 Nhung Yan null, [place] - [facility] 5 08:33:37 Overactive urinary bladder 011593348 Active 2023 Gloria Johnson, WELLNESS ASSISTANT [address], [place], [address] , [place] [facility] 4 08:22:02 Fissure in skin of bilateral feet 053888431 Active 2023 Gloria Johnson, WELLNESS ASSISTANT [address], [place], [address] , [place] [facility] 4 08:22:05 Intention tremor 89798020 Active 2024 Gloria Johnson, WELLNESS ASSISTANT [address], [place], [address] , [place] [facility] 5 15:34:52 Dystonia 69259589 Active 2024 Gloria Johnson, WELLNESS ASSISTANT [address], [place], [address] , [place] [facility] 5 15:34:54 Vitamin D deficiency 62846001 Active 2024 Gloria Johnson, WELLNESS ASSISTANT [address], [place], [address] , [place] [facility] 5 15:35:08 Constipati on 41969330 Active 2024 Gloria Johnson, WELLNESS ASSISTANT [address], [place], [address] , [place] [facility] 5 15:35:10 Primary progressiv e multiple sclerosis 488937797 Active 2024 Ivon Lopez, WELLNESS ASSISTANT [address], [place], [address] , [place] [facility] 12:42:20 Mixed urinary incontinen ce 098611477 Active 2024 Nhung starr, [place] - [facility] 09:20:36 Toothache 41914567 Active 2024 Citlaly Park, DO [address], [place], [address] , [place] [facility] 10:15:39 Bacterial conjunctiv itis 936641786 Active 2024 Citlaly Park, DO [address], [place], [address] , [place] [facility] 10:16:45 Inadequate oral intake 7002327278582 01 Active 2024 Citlaly Park, DO [address], [place], [address] , [place] [facility] 13:58:18 Problem Notes None recorded. Procedures Surgical History Date Name Laterality Status Provider Name and Address Organization Details Recorded Time 04/21/20 25 Suprapubic Catheter Change completed Shireen Floyd, WELLNESS ASSISTANT [address], [place], [address], [place] [facility] 04/21/2025 16:13:43 10/15/19 25 Suprapubic Catheter Change completed Shireen Floyd, WELLNESS ASSISTANT [address], [place], [address], [place] [facility] 10/14/2024 15:06:09 08/13/19 25 Suprapubic Catheter Change completed Shireen Mariel, WELLNESS ASSISTANT [address], [place], [address], [place] [facility] 08/12/2024 14:21:04 07/09/19 25 Bladder Irrigation completed Shireen Mariel, WELLNESS ASSISTANT [address], [place], [address], [place] [facility] 07/09/2024 11:46:13 07/09/19 25 Suprapubic Catheter Change completed Shireenblanca Floyd, WELLNESS ASSISTANT [address], [place], [address], [place] [facility] 07/09/2024 11:46:34 05/21/20 24 Suprapubic Catheter Change completed Shireen Floyd APRN [address], [place], [address], [place] [facility] 05/21/2024 11:40:33 04/29/20 Medication Reconcilliation cancelled Radha Brooks [place] - [facility] 04/27/2024 11:47:16 04/15/20 24 Suprapubic Catheter Change completed Shireen Floyd APRN [address], [place], [address], [place] [facility] 04/15/2024 09:43:31 12/31/19 Suprapubic Catheter Change completed Shireen Floyd APRN [address], [place], [address], [place] [facility] 12/31/2023 15:24:03 11/12/19 24 Suprapubic Catheter Change completed Shireen Floyd APRN [address], [place], [address], [place] [facility] 11/12/2023 12:38:46 11/14/19 Suprapubic Catheter Change completed Shireen Floyd APRN [address], [place], [address], [place] [facility] 11/13/2022 16:09:36 10/11/19 23 Suprapubic Catheter Change completed Shireen Floyd APRN [address], [place], [address], [place] [facility] 10/10/2022 15:35:42 09/15/19 23 Suprapubic Catheter Change completed Shireen Floyd APRN [address], [place], [address], [place] [facility] 09/14/2022 15:42:53 08/16/19 23 Suprapubic Catheter Change completed Shireen Floyd, WELLNESS ASSISTANT [address], [place], [address], [place] [facility] 08/15/2022 15:48:10 08/11/19 23 Suprapubic Catheter Change completed Shireen Floyd APRN [address], [place], [address], [place] - [facility] 08/10/2022 12:15:22 Unlisted px foot/toes completed Love RODRIGUEZ - [facility] 01/18/2022 13:54:42 procedure on gallbladder completed Love Alicea [place] - [facility] 01/18/2022 13:54:49 procedure on tibia completed Love RODRIGUEZ - [facility] 01/18/2022 13:55:01 catheterization completed Love Alicea [place] - [facility] 04/20/2022 13:37:03 Knee Surgery completed Rose Marie Hanson [place] - [facility] 02/18/2025 11:10:23 Imaging Results None recorded. Procedure Notes None recorded. Medical Equipment None Reported. Allergies Allergen ID Allergen Name Allergen Category Reaction Reaction Severity Criticality Documentation Date Start Date Code Code System Note Provider Name and Address Organization Details Recorded Time 083802 acetamino phen / hydrocodo ne medicatio n hives moderate Not available 12/31/20232023 84470 2 RxNorm [place], [place] - [facility] 15:16:55 [id number] hydrocodo ne Not available hives Not available [...] ONE (1) TABLET EVERY DAY at bedtime 08/14/ 2025 09/11 /2025 completed Not Available Not Available Not Available [...] Vitals Date Recorded Heart rate Oxygen saturation Respiratory rate Pain severity - 0-10 verbal numeric rating [Score] - Reported Systolic And Diastolic Provider Name and Address Organization Details Last Updated DateTime 5 89 /min 97 % 17 /min 0 118/70 mm[Hg] Nhung Saraolivia [place] - [facility] 09:12:33 Social History Question Answer Notes LastModified by Organizat ion Details LastModified Time Tobacco Smoking Status Former Smoker Love Alicea null, [place] - [facility] 04/20/2022 13:36:44 Do You Have An Advance Directive? No [email or web address] Information not available 01/18/2022 Are You Blind Or Do You Have Difficulty Seeing? No [email or web address] Information not available 01/18/2022 Is Blood Transfusion Acceptable In An Emergency? Yes [email or web address] Information not available 02/18/2025 What Is Your Level Of Caffeine Consumption? None [email or web address] Information not available 01/18/2022 How Much Tobacco Do You Chew? None [email or web address] Information not available 02/18/2025 Are You Deaf Or Do You Have Serious Difficulty Hearing? No [email or web address] Information not available 01/18/2022 Which Illicit Or Recreational Drugs Have You Used? Methanfetimine Information not available 03/01/2025 What Is The Highest Grade Or Level Of School You Have Completed Or The Highest Degree You Have Received? [id number] [email or web address] Information not available 02/18/2025 Have There Been Any Changes To Your Family Or Social Situation? No [email or web address] Information not available 01/18/2022 What Is The Fluoride Status Of Your Home? Fluoridated [email or web address] Information not available 01/18/2022 When Did You Quit Smoking? 6-10yearssincelast cigarette Information not available 03/01/2025 How Many Years Have You Used Illicit Or Recreational Drugs? 4 [email or web address] Information not available 03/01/2025 Do You Have A Medical Power Of Welding Machine Operator Thermit? No [email or web address] Information not available 01/18/2022 What Was The Date Of Your Most Recent Tobacco Screening? 01/21/2025 Information not available 01/21/2025 What Is Your Current Pack Years? 10packyears [email or web address] Information not available 12/31/2023 Do You Use Protection Against STDs? No [email or web address] Information not available 03/01/2025 What Is Your Relationship Status? Single [email or web address] Information not available 02/18/2025 Do You Use Your Seat Belt Or Car Seat Routinely? Yes [email or web address] Information not available 02/18/2025 Are You Sexually Active? No [email or web address] Information not available 01/18/2022 Do You Have Smoke And Carbon Monoxide Detectors In Your Home? Yes [email or web address] Information not available 01/18/2022 At What Age Did You Start Smoking Tobacco? 16 [email or web address] Information not available 03/01/2025 Are You Passively Exposed To Smoke? No Information not available 01/18/2022 How Much Tobacco Do You Smoke? No [email or web address] Information not available 04/20/2022 Do You Use Sunscreen Routinely? Yes [email or web address] Information not available 03/01/2025 Has Tobacco Cessation Counseling Been Provided? Yes [email or web address] Information not available 01/18/2022 On What Date Was Tobacco Cessation Counseling Provided? 01/21/2025 Information not available 01/21/2025 How Many Years Have You Smoked Tobacco? 6 [email or web address] Information not available 03/01/2025 Do You Have Difficulty Walking Or Climbing Stairs? Yes [email or web address] Information not available 01/18/2022 Sex: Male Functional Status Question Answer Note LastModified by Organizat ion Details LastModified Time Do you use any illicit or recreational drugs? No Information not available 01/18/2022 Do you or have you ever used any other forms of tobacco or nicotine? No [email or web address] Information not available 01/18/2022 What is your level of alcohol consumption? None Information not available 01/18/2022 Do you or have you ever used smokeless tobacco? Never used smokeless tobacco [email or web address] Information not available 03/01/2025 Are you currently employed? No [email or web address] Information not available 01/18/2022 Do you have transportation difficulties? Yes Information not available 01/18/2022 Are you able to walk independently without assistance or assistive devices? NOWALK [email or web address] Information not available 01/18/2022 Do you have difficulty doing errands alone? Yes [email or web address] Information not available 01/18/2022 Are you able to care for yourself independently? No [email or web address] Information not available 01/18/2022 Do you have difficulty dressing, bathing, grooming, or toileting? Yes [email or web address] Information not available 01/18/2022 Do you or have you ever used e-cigarettes or vape? Former user of electronic cigarettes [email or web address] Information not available 03/01/2025 What is your exercise level? None [email or web address] Information not available 02/18/2025 Mental Status Question Answer Note LastModified by Organizat ion Details LastModified Time Do you feel stressed (tense, restless, nervous, or anxious, or unable to sleep at night)? [id number] [email or web address] Information not available 02/18/2025 Do you have difficulty concentrating, remembering or making decisions? Yes [email or web address] Information no t available 01/18/2022 Family History Relationship Description Onset Age of this Age Resolved Age Notes LastModified by Organization Details LastModified Time Mother Diabetes mellitus [email or web address] Not available 2021 13:52:58 Mother Depressive disorder [email or web address] Not available 2024 11:10:22 Mother Obesity [email or web address] Not available 02/18/2025 11:10:23 Maternal Uncle Obesity [email or web address] Not available 02/19/20 11:10:23 Brother Asthma [email or web address] Not available 02/18/2025 11:10:23 Medical History Condition Response Anxiety Disorder Y Muscle, Joint, or Bone Problems Y Insomnia Y Vision or Eye Problems Y Constipation Y Depression Y Immunizations Vaccine Type Date Status Note Provider Nam e and Address Organization Details Recorded Time Tdap 01/23/2023 completed Nhung Yan [facility], [place] - [facility] 01/23/2023 16:41:38 Influenza, split virus, trivalent, PF 03/01/2025 completed Citlaly Park DO [facility] [address], [place], [address], [facility] - [facility] 03/01/2025 10:17:22 Past Encounters Encounter ID Performer Location Encounter Start Date Encounter Closed Date Diagnosis/Indication Diagnosis SNOMED-CT Code Diagnosis ICD10 Code Diagnosis IMO Codes Diagnosis Note [id number] Ivon Lopez APRN [facility] [address] [place] [address] 02/18/2025 10:54:17 02/18/2025 13:26:56 Depressive disorder 65250974 F32.A increase rexulti dose.discu ssion of mother with risks; benefits and adverse effects including EPS which is different than his spastic tremors. monitor closely.co ntinue fluoxetine at present dose. 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 meds as directed Primary pr ogressive multiple sclerosis 895412951 G35 4348368 dx at age 17 Outbursts of anger 20162 1009 R45.4 325486 current medication s as directed. [id number] Citlaly Park DO [facility] [address] [place] [address] 03/01/2025 08:54:59 03/01/2025 10:24:57 Influenza vaccine needed 5183822678 106 Z23 Primary pr ogressive multiple sclerosis 053930193 G35 2963282 Toothache 63161636 K08.8 9 66933 Full extraction planned. Patient is clear for oral surgery. Bacterial conjunctivitis 077663455 H10.9 76976 Inadequate oral intake 6994942319 79350 E63.9 35261125 The patient requires at least 3 cans of daily Ensure Plus to supplement nutrition due to inadequate oral nutritiona l intake. This is necessary to avoid malnutriti on or weight loss. Failure to supplement nutrition may result in failure to thrive and deteriorat ion due to multiple sclerosis. Health Concerns Section Related Observation LastModified by Organization Detai ls LastModified Time None Recorded Concern Status LastModified by Organization Details LastModified Time None Recorded Payers Encounter Date Sequence Insurance Name Policy Number Policy Cary Covered Member ID Cary Member ID Guarantor Name 03/01/2025 1 [place] [employer] [place] [employer] - FFS/TRADITIO NAL Evens Andre [id number] Evens Andre Notes Date Note Type Note Provider Name and Address Organization Details Recorded Time 03/01/2025 text/html ROS as noted in the HPI The patient is a 30 year old male with multiple sclerosis, that presents today to establish primary care. The patient is having oral surgery on 03/18, and is needing a form filled out. He has progressive multiple sclerosis and uses a wheelchair. He has pain in all of his teeth and can only tolerate protein shakes for PO intake. he is going to have a full extraction of his teeth. The patient also woke up with redness and drainage in his right eye this morning. He had to use a washcloth to clear and open his eye. No fevers or chills, no chest pain, palpitations, SOB, or abdominal pain. The MSK and neuro changes from his multiple sclerosis are unchanged. Flu shot offered and accepted today. Citlaly Park, DO [address], [place], [address], [place] - [facility] 04/13/2025 14:00:55 03/25/2025 text/html Mother and pt report that [...] mother are interested in a communication device. Ivon Lopez, WELLNESS ASSISTANT [address], [place], [address], [facility] - [facility] 03/25/2025 14:50:12
--- OUTSIDE RECORDS SUMMARY | 2025-05-10 21:39 | XMS_ITS | Encounter Summary ---
Author Organization [facility] Address [address] [place] [address] Care Team Providers Care Ecological Risk Assessor Name Role Phone Carlos Reis MD Unavailable + [phone] Gloria Perez Primary Care Provider [phone] Encounter Details Date Type Department Care Team (Late st Contact Info) Description 09/20/2024 Telephone [facility] [address] [place] [address] Mandie Mitchell, [facility] [address] [place] [address] Social History Tobacco Use Types Packs/Day Years [...] drink first t luther in the morning (EYE-LINE INSTALLER) to steady your nerves or to get rid of a hangover? 0 02/22/2023 CAGE Questionnaire Score 0 023 Sex and Gender Information Value Date Recorded Sex Assigned at Not on file Legal Sex Male 10:31 AM EDT Gender Identity Not on file Sexual Orientation Not on file documented as of this encounter Miscellaneous Notes * Telephone Encounter - Linnette Davis PharmD - 04/22/2025 10:53 AM EST Infusion team requesting order for next dose of Ocrevus due 05/06/25. Patient received last dose ofOcrevus on 11/03/24 at [facility]. Patient last seen by Dr. Reis on 10/15/24 and instructed to continue infusion therapy. Per Dr. Reis, okay to go ahead and enter therapy plan for next dose to facilitate scheduling. Will reachout to front end loader driver staff to assist with rescheduling missed office visit on 04/21/25. Labs last drawn 11/03/24. CBC w diff and CMP appropriate for continuation of Ocrevus. Will add repeat labs to therapy plan to be drawn at the time of next infusion. Entering therapy plan and sending to for review and signature if appropriate. * Telephone Encounter - Vandana Hickey PharmD - 10/15/2024 4:16 PM EDT Infusion team requesting order for next dose of Ocrevus due ~10/18/24. Last infusion on 04/20/24. Patient last seen by Dr. Reis on 10/15/24 and instructed to continue infusion therapy. Per OV note, SPMS, on OCR which will continue, but may not make a significant impact Per Dr. Reis ok to continue Ocrevus with labs on 03/18/24 and can add labs to current therapy plan. Labs last drawn 03/18/24. ALC and LFTs wnl. Entering therapy plan and sending to for review and signature if appropriate. * Telephone Encounter - Mandie Mitchell CPhT - 09/20/2024 8:58 AM EDT New Therapy plan requested Provider: Leno Medication: Ocrevus Last Infusion: 04/20/24 documented in this encounter Plan of Treatment Upcoming Encounters Date Type Department Care Team (Late st Contact Info) Description 05/19/2025 10:30 AM EST Office Visit [place] [facility] [address] [place] [address] Carlos Reis MD [id number] [place] [address] 06/09/2025 10:00 AM EST Appointment [facility] [address] [place] [address] documented as of this encounter Visit Diagnoses Diagnosis Secondary progressive multiple sclerosis- Primary Multiple sclerosis documented in this encounter Additional Health Concerns Assessment Noted Time A fall risk assessment has been complete d for the patient 04/20/2024 8:49 AM EST A Body Mass Index follow-up plan has been documented for the patient 03/21/2024 9:17 AM EDT documented as of this encounter Care Teams Ecological Risk Assessor Relationship Specialty Start Date End Date Gloria Perez [id number] PCP - General Family Medicine 06/20/22 Carlos Reis MD [id number] [place] [address] Service Attending Neurology 05/07/22 documented as of this encounter
--- OUTSIDE RECORDS SUMMARY | 2025-05-10 21:39 | XMS_ITS | Clinical Summary ---
Author Organization [facility] Address [address] [place] [address] Care Team Providers Care Industrial Hire Sales Assistant Name Role Phone Carlos Reis MD Unavailable + [phone] Gloria Perez Primary Care Provider [phone] Allergies Active Allergy Reactions Criticality Noted Date [...] MG tablet 10/14/2024 Active ergocalciferol 1.25 MG (69980 UT) capsule 10/01/2024 Active Active Problems Problem Noted Date Diagnosed Date Secondary progressive multiple sclerosis 025 Neuromuscular dysfunction of bladder, unspecifie d 06/28/2023 Oropharyngeal dysphagia 05/21/2023 Dysarthria 05/16/2023 Ataxia, unspecified 04/16/2023 Neurogenic bowel, not elsewhere classified 03/17 Status post deep brain stimulator placement 02/08 Dystonia, unspecified 11/22/2022 Chronic back pain 01/18/2022 Depressive disorder 01/18/2022 Anxiety 01/18/2022 Multiple sclerosis 08/09/2011 Resolved Problems Problem Noted Date Diagnosed Date Resolved Date Insomnia 01/18/2022 02/28/2025 Encounters Date Type Department Care Team Description 04/22/2025 Orders Only [place] [facility] [address], [address] [place] [address] Carlos Reis MD Secondary progressive multiple sclerosis (Primary Dx); Multiple sclerosis 02/23/2025 Telephone [facility] [address] [place] [address] Eveline, Surgeon, from Last 3 Months Immunizations Immunization Administration [...] drink first t luther in the morning (EYE-STEREOPTIC PROJECTION TOPOGRAPHER) to steady your nerves or to get [...] Visit [place] [facility] [address], [address] [place] [address] Carlos Reis MD [address] [place] [address] 06/09/2025 10:00 AM EST Appointment [facility] [address] [place] [address] Health Maintenance Due Date Last Done Comments [facility]-Depression Screening 1997 [facility]-HIV Screening 1997 [facility]-Hepatitis C Screening 1997 [facility]-Infant/Child/Adol SDOH Screenings 1997 [facility]-Varicella Vaccines (1 of 2 - 13+ 2-dose series) 2010 [facility]- SDOH Screenings 2015 [facility]-Adult SDOH Screenings 2015 [facility]-Hepatitis B Vaccines (1 of 3 - 19+ 3-dose series) 01/07/2016 [facility]-IPV Vaccines (2 of 3 - Adult catch-up series) 02/20/2023 01/23/2023 HPV Vaccines (1 - 3-dose SCDM series) 01/07/2024 [id number] Vaccine (1 - 2024- season) 2025 [facility]-DTaP,Tdap,and Td Vaccines (3 - Td or Tdap) 01/23/2033 01/23/2023, 01/23/2023 [facility]-Zoster Vaccines (1 of 2) 2047 [facility]-HIB Vaccines Aged Out 01/23/2023 No longer e ligible based on patient's age to complete this topic [facility]-Influenza Vaccine Completed 03/01/2025 [facility]-Hepatitis A Vaccines Aged Out No longer [...] this topic Medical Devices Implanted Type Area Contact Centre Supervisor Device Identifier Shelf Expiration Date Model / Serial / Lot Cement Cranial Directinject 3cc - [id number] Implanted:Qty: 1 on 02/20/2023 by Reg Costello MD at [facility] Cement Left: skull Solway Craniomaxillofacial ([id number]-[id number] 10/15/2024 [id number] / / Plate, 2 Hole Low Profile - [id number] Implanted:Qty: 2 on 02/20/2023 by Reg Costello MD at [facility] Plate Synthes [facility]-[id number] 02/21/2024 421.50 2 / / Catheter Codman Passer Disposable 36cm - [id number] Implanted:Qty: 1 on 02/20/2023 by Reg Costello MD at [facility] Integra CSS99ciZscaler Keegan-[id number] 06/09/2027 [id number] / / [id number] Kit Ipg Vercise Genus R16 - [id number] Implanted:Qty: 1 on 02/20/2023 by Reg Costello MD at [facility] WriteLatex-[id number] 01/23/2025 DB-1216 / [id number] / [id number] Lead Extension Deep Brain Vercise - [id number] Implanted:Qty: 1 on 02/20/2023 by Reg Costello MD at [facility] WriteLatex-[id number] DB-3128- 55B / / Lead Directional 45cm - [id number] Implanted:Qty: 1 on 02/20/2023 by Reg Costello MD at [facility] WriteLatex-[id number] 08/18/2024 DB-2202- 45 / [id number] / [id number] Lead Directional 45cm - [id number] Implanted:Qty: 1 on 02/20/2023 by Reg Costello MD at [facility] CloudShare-[id number] 11/29/2024 DB-2202- 45 / [id number] / [id number] Screw Ti Matrixneuro Selfdrill 4mm - [id number] Implanted:Qty: 4 on 02/20/2023 by Reg Costello MD at [facility]-[id number] 02/21/2024 04.503 .1 04.01 / / [place] [address] [place] [id number] Advance Directives * Full Code (Latest Code Status on File) Date Activated Date Inactivated Comments 02/28/2023 10:45 AM * Full Code Date Activated Date Inactivated Comments 02/20/2023 1:42 PM 02/28/2023 10:45 AM Question Answer Comments Patient has decision-making capacity? Yes Care Teams Industrial Hire Sales Assistant Relationship Specialty Start Date End Date Gloria Perez [id number] PCP - General Family Medicine 06/20/22 Carlos Reis MD [address] [facility] [address] [place] [address] Service Attending Neurology 05/07/22
--- OUTSIDE RECORDS SUMMARY | 2025-05-10 21:39 | XMS_ITS | Continuity of Care Document ---
Author Organization [facility] Address [address] [place] [address] Assessment Encounter Date Assessment Date Assessment LastModified by Organization Details LastModified Time 04/21/2025 04/21/2025 - for catheter and supplies= [facility]. -also gave resources for [facility] development. continue on myrbetriq and oxybutinin -fu monthly for changes either with us or dr osborne. FU 4WKS 20 min spent in prep, face to face, and in coordination of care in addition to procedure time. [email or web address] Not available 04/21/2025 16:32:28 Plan of Treatment Reminders Order Date Submit Date Provider Last Modified By Organization Details Last Modified Time Details Appointments Follow Up 20 2024 04:20P M Citlaly Park, DO Not available Not available Not available Procedur e 40 mins 2024 10:20A M Shireen Floyd FISHING INSTRUCTOR Not available Not available Not available Telemedi cine 20 2024 10:40A M Ivon Lopez, FISHING INSTRUCTOR Not available Not available Not available Lab None recorded . Referral None recorded . Procedures None recorded . Surgeries None recorded . Imaging None recorded . Medication Orders Myrbetri q 50 mg tablet,e xtended release 2024 025 [facility], [address] [place] [address], [place], [address], 04/21/2025 16:32:31 oxybutyn in chloride ER 15 mg tablet,e xtended release 24 hr 2024 025 [facility], [address] [place] [address], [place], [address], 04/21/2025 16:32:31 Patient TargetsNo targets recorded. Patient Instructions Encounter Date Encounter Id Patient Instructions Last Modified By Organization Details Last Modified Time 04/21/2025 [id number] depression treatment: care instructions Not available 04/21/2025 16:32:30 multiple sclerosis (MS): care instructions Not available 04/21/2025 16:32:30 Reason for Referral None Reported. Problems Name Problem SNOMED Code Status Onset Date Resolution Date Notes Provider Name and Address Organization Details Recorded Time Depressive disorder 68094098 Active 2021 Nhung Yan null, [place] - [facility] 5 08:33:26 Anxiety 38066709 Active 2021 Nhung Yan [place] - [facility] 08:33:32 Chronic back pain 432103012 Active 2021 Love Alicea null, [place] - [facility] 2 13:51:27 Multiple sclerosis 89467262 Active 2021 Nhung Yan [place] - [facility] 5 08:33:44 Insomnia 587841254 Active 2021 Love Alicea null, [place] - [facility] 2 13:52:49 Spasm of urinary bladder 564964484 Active 2022 Shireen Floyd FISHING INSTRUCTOR [address], [place], [address] , [place] - [facility] 3 15:50:55 Hyperlipid emia 61203600 Active 2023 Nhung Yan null, [place] - [facility] 5 08:33:37 Overactive urinary bladder 362884885 Active 2023 Fredi Johnson APRN [address], [place], [address] , [place] - [facility] 4 08:22:02 Fissure in skin of bilateral feet 552745850 Active 2023 Fredi Johnson APRN [address], [place], [address] , [place] - [facility] 4 08:22:05 Intention tremor 50215784 Active 2024 Fredi Johnson, FISHING INSTRUCTOR [address], [place], [address] , [place] - [facility] 5 15:34:52 Dystonia 77131406 Active 2024 Fredi Johnson, FISHING INSTRUCTOR [address], [place], [address] , [place] - [facility] 5 15:34:54 Vitamin D deficiency 94329798 Active 2024 Fredi Johnson, FISHING INSTRUCTOR [address], [place], [address] , [place] - [facility] 5 15:35:08 Constipati on 59208127 Active 2024 Fredi Johnson, FISHING INSTRUCTOR [address], [place], [address] , [place] - [facility] 5 15:35:10 Primary progressiv e multiple sclerosis 289580333 Active 2024 Ivon Lopez, FISHING INSTRUCTOR [address], [place], [address] , [place] - [facility] 5 12:42:20 Mixed urinary incontinen ce 020289302 Active 2024 Nhungestefany Yan [facility], [place] - [facility] 5 09:20:36 Toothache 58840086 Active 2024 Citlaly Park, DO [address], [place], [address] , [place] - [facility] 5 10:15:39 Bacterial conjunctiv itis 529878865 Active 2024 Citlaly Park, DO [address], [place], [address] , [place] [facility] 10:16:45 Inadequate oral intake 1299135346657 01 Active 2024 Citlaly Park, DO [address], [place], [address] , [place] - [facility] 5 13:58:18 Problem Notes None recorded. Procedures Surgical History Date Name Laterality Status Provider Name and Address Organization Details Recorded Time 04/21/20 25 Suprapubic Catheter Change completed Shireen Floyd FISHING INSTRUCTOR [address], [place], [address], [place] [facility] 04/21/2025 16:13:43 10/15/19 25 Suprapubic Catheter Change completed Shireenalvaro Floyd FISHING INSTRUCTOR [address], [place], [address], [place] [facility] 10/14/2024 15:06:09 08/13/19 25 Suprapubic Catheter Change completed Shireen Mariel, FISHING INSTRUCTOR [address], [place], [address], [place] [facility] 08/12/2024 14:21:04 07/09/19 25 Bladder Irrigation completed Shireen Gove FISHING INSTRUCTOR [address], [place], [address], [place] [facility] 07/09/2024 11:46:13 07/09/19 25 Suprapubic Catheter Change completed Shireenblanca Floyd FISHING INSTRUCTOR [address], [place], [address], [place] [facility] 07/09/2024 11:46:34 05/21/20 24 Suprapubic Catheter Change completed Shireen Mariel FISHING INSTRUCTOR [address], [place], [address], [place] [facility] 05/21/2024 11:40:33 04/29/20 24 Medication Reconcilliation cancelled Radha Brooks [place] - [facility] 04/27/2024 11:47:16 04/15/20 24 Suprapubic Catheter Change completed Shireenblanca Floyd APRN [address], [place], [address], [place] [facility] 04/15/2024 09:43:31 12/31/19 24 Suprapubic Catheter Change completed Shireenblanca Floyd FISHING INSTRUCTOR [address], [place], [address], [place] [facility] 12/31/2023 15:24:03 11/12/19 24 Suprapubic Catheter Change completed Shireen Floyd APRN [address], [place], [address], [place] [facility] 11/12/2023 12:38:46 11/14/19 Suprapubic Catheter Change completed Shireen Floyd, FISHING INSTRUCTOR [address], [place], [address], [place] [facility] 11/13/2022 16:09:36 10/11/19 Suprapubic Catheter Change completed Shireen Floyd, FISHING INSTRUCTOR [address], [place], [address], [place] [facility] 10/10/2022 15:35:42 09/15/19 Suprapubic Catheter Change completed Shireen Floyd, FISHING INSTRUCTOR [address], [place], [address], [place] [facility] 09/14/2022 15:42:53 08/16/19 Suprapubic Catheter Change completed Shireen Floyd APRN [address], [place], [address], [place] [facility] 08/15/2022 15:48:10 08/11/19 Suprapubic Catheter Change completed Shireen Floyd APRN [address], [place], [address], [place] [facility] 08/10/2022 12:15:22 Unlisted px foot/toes completed Love Alicea [place] - [facility] 01/18/2022 13:54:42 procedure on gallbladder completed Love [place]a [place] - [facility] 01/18/2022 13:54:49 procedure on tibia completed Love [place]a [place] [facility] 01/18/2022 13:55:01 catheterization completed Love [place]a [place] [facility] 04/20/2022 13:37:03 Knee Surgery completed Rose Marie Hanson [place] - [facility] 02/18/2025 11:10:23 Imaging Results None recorded. Procedure Notes None recorded. Medical Equipment None Reported. Allergies Allergen ID Allergen Name Allergen Category Reaction Reaction Severity Criticality Documentation Date Start Date Code Code System Note Provider Name and Address Organization Details Recorded Time 506820 acetamino phen / hydrocodo ne medicatio n hives moderate Not available 12/31/20232023 94243 2 RxNorm Cande starr [place] - [facility] 15:16:55 333848 hydrocodo ne Not available hives Not available high 05/10/2025 01/03/ 2024 5489 RxNorm Not Available anton - External Data Service - prod 11:35:53 [...] Updated DateTime 5 76 /min 96 % 18 /min 0 108/68 mm[Hg] Joie Louis [place] - [facility] 16:13:37 Social History Question Answer Notes LastModified by Organizat ion Details LastModified Time Tobacco Smoking Status Former Smoker Love starr, [place] - [facility] 04/20/2022 13:36:44 Do You Have An Advance Directive? No [email or web address] Information not available 01/18/2022 Are You Blind Or Do You Have Difficulty Seeing? No [email or web address] Information not available 01/18/2022 Is Blood Transfusion Acceptable In An Emergency? Yes [email or web address] Information not available 02/18/2025 What Is Your Level Of Caffeine Consumption? None Information not available 01/18/2022 How Much Tobacco Do You Chew? None [email or web address] Information not available 02/18/2025 Are You Deaf Or Do You Have Serious Difficulty Hearing? No [email or web address] Information not available 01/18/2022 Which Illicit Or Recreational Drugs Have You Used? Methanfetimine [email or web address] Information not available 03/01/2025 What Is The Highest Grade Or Level Of School You Have Completed Or The Highest Degree You Have Received? [id number] [email or web address] Information not available 02/18/2025 Have There Been Any Changes To Your Family Or Social Situation? No [email or web address] Information not available 01/18/2022 What Is The Fluoride Status Of Your Home? Fluoridated [email or web address] Information not available 01/18/2022 When Did You Quit Smoking? 6-10yearssincelast cigarette [email or web address] Information not available 03/01/2025 How Many Years Have You Used Illicit Or Recreational Drugs? 4 [email or web address] Information not available 03/01/2025 Do You Have A Medical Power Of Desktop Architect? No [email or web address] Information not available 01/18/2022 What Was The Date Of Your Most Recent Tobacco Screening? 01/21/2025 Information not available 01/21/2025 What Is Your Current Pack Years? 10packyears [email or web address] Information not available 12/31/2023 Do You Use Protection Against STDs? No [email or web address] Information not available 03/01/2025 What Is Your Relationship Status? Single [email or web address] Information not available 02/18/2025 Do You Use Your Seat Belt Or Car Seat Routinely? Yes [email or web address] Information not available 02/18/2025 Are You Sexually Active? No [email or web address] Information not available 01/18/2022 Do You Have Smoke And Carbon Monoxide Detectors In Your Home? Yes [email or web address] Information not available 01/18/2022 At What Age Did You Start Smoking Tobacco? 16 [email or web address] Information not available 03/01/2025 Are You Passively Exposed To Smoke? No [email or web address] Information not available 01/18/2022 How Much Tobacco Do You Smoke? No [email or web address] Information not available 04/20/2022 Do You Use Sunscreen Routinely? Yes [email or web address] Information not available 03/01/2025 Has Tobacco Cessation Counseling Been Provided? Yes Information not available 01/18/2022 On What Date Was Tobacco Cessation Counseling Provided? 01/21/2025 Information not available 01/21/2025 How Many Years Have You Smoked Tobacco? 6 [email or web address] Information not available 03/01/2025 Do You Have Difficulty Walking Or Climbing Stairs? Yes [email or web address] Information not available 01/18/2022 Sex: Male Functional Status Question Answer Note LastModified by OrganMusiwaveat ion Details LastModified Time Do you use any illicit or recreational drugs? No [email or web address] Information not available 01/18/2022 Do you or have you ever used any other forms of tobacco or nicotine? No [email or web address] Information not available 01/18/2022 What is your level of alcohol consumption? None [email or web address] Information not available 01/18/2022 Do you or have you ever used smokeless tobacco? Never used smokeless tobacco [email or web address] Information not available 03/01/2025 Are you currently employed? No [email or web address] Information not available 01/18/2022 Do you have transportation difficulties? Yes [email or web address] Information not available 01/18/2022 Are you able to walk independently without assistance or assistive devices? NOWALK Information not available 01/18/2022 Do you have difficulty doing errands alone? Yes Information not available 01/18/2022 Are you able to care for yourself independently? No [email or web address] Information not available 01/18/2022 Do you have difficulty dressing, bathing, grooming, or toileting? Yes Information not available 01/18/2022 Do you or have you ever used e-cigarettes or vape? Former user of electronic cigarettes [email or web address] Information not available 03/01/2025 What is your exercise level? None [email or web address] Information not available 02/18/2025 Mental Status Question Answer Note LastModified by Organizat ion Details LastModified Time Do you feel stressed (tense, restless, nervous, or anxious, or unable to sleep at night)? [id number] Information not available 02/18/2025 Do you have difficulty concentrating, remembering or making decisions? Yes [email or web address] Information no t available 01/18/2022 Family History Relationship Description Onset Age of this Age Resolved Age Notes LastModified by Organization Details LastModified Time Mother Diabetes mellitus [email or web address] Not available 2021 13:52:58 Mother Depressive disorder [email or web address] Not available 2024 11:10:22 Mother Obesity [email or web address] Not available 02/18/2025 11:10:23 Maternal Uncle Obesity [email or web address] Not available 02/19/20 11:10:23 Brother Asthma [email or web address] Not available 02/18/2025 11:10:23 Medical History Condition Response Depression Y Anxiety Disorder Y Muscle, Joint, or Bone Problems Y Vision or Eye Problems Y Constipation Y Insomnia Y Immunizations Vaccine Type Date Status Note Provider Nam e and Address Organization Details Recorded Time Tdap 01/23/2023 completed Nhung Yan [facility], [place] - [facility] 01/23/2023 16:41:38 Influenza, split virus, trivalent, PF 03/01/2025 completed Citlaly Park, [address], [address], [facility] - [facility] 03/01/2025 10:17:22 Past Encounters Encounter ID Performer Location Encounter Start Date Encounter Closed Date Diagnosis/Indication Diagnosis SNOMED-CT Code Diagnosis ICD10 Code Diagnosis IMO Codes Diagnosis Note [id number] Ivon Lopez APRN [facility] [address] [place] [address] 03/25/2025 13:26:13 03/25/2025 16:31:22 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 Intention tremor 5646781 6 G25.2 18509 chronic. Depressive disorder 3548 9007 F32.A continue rexulti at present dose.ashanti nue fluoxetine at present dose. Aggressive behavior 6137 2000 R46.89 0254693 greatly improved.c ontinue rexulti at present dosediscus sherice of mother with risks; benefits and adverse effects including EPS which is different than his spastic tremors. monitor closely. Anxiety 50475313 F41.9 continue buspirone at present dose. no changes at this time. Difficulty communicating 983789245 F80.9 61849286 [id number] Shireen Floyd [facility] [address] [place] [address] 04/21/2025 16:02:40 04/21/2025 16:34:02 Overactive urinary bladder 532535287 N32.81 -avoid anticholin ergics in this patient d/t potential patient harm. anticholin ergics interact with currently rx medication s and combo may incr. risk of LABORER VINEYARD depression , psychomoto r impairment . AlsoBeta 3 agonists are the safest alternativ e for this patient. -had 2 month trial of gemtesa which was ineffectiv e to control his symptoms, left residual bladder spasms and pain. -best tolerated combinatio n has been myrbetriq and oxybutinin . Urinary incontinence 165 824418 R32 Multiple sclerosis 51551 007 G35.D 86320 has referral to neuro Depressive disorder 2729 9007 F32.A Retention of urine 86173 4002 R33.9 -cath Neurogenic urinary bladder 486028809 N31.9 -avoid anticholin ergics in this patient d/t potential patient harm. anticholin ergics interact with currently rx medication s and combo may incr. risk of LABORER VINEYARD depression , psychomoto r impairment .Beta 3 agonists are the safest alternativ e for this patient. Health Concerns Section Related Observation LastModified by Organization Detai ls LastModified Time None Recorded Concern Status LastModified by Organization Details LastModified Time None Recorded Payers Encounter Date Sequence Insurance Name Policy Number Policy Cary Covered Member ID Cary Member ID Guarantor Name 04/21/2025 1 [place] [employer] - FFS/TRADITIO NAL Evens Andre [id number] Evens Andre Notes Date Note Type Note Provider Name and Address Organization Details Recorded Time 04/21/2025 text/html pt was referred by fredi jean.his mom is with him. history of MS, anxiety, chronic back pain, depression, and insomnia to establish care. He recently moved here from [place].Dx with MS at the age of 17. ------ he was referred to Dr Cheuprapubic tube was inserted 04/2022. 04/21/25comes to fu on neurogenic bladder, urinary retention. needs cath changed Evens presents today accompanied by his mother taking oxybutinin 15mg ER daily and myrbetriq 50mg daily and doing better. saw dr osborne the last few months for cath change. has been 5wks since last change. Shireen Floyd, FISHING INSTRUCTOR [address], [place], [address], [place] - [facility] 04/21/2025 16:32:46
--- OUTSIDE RECORDS SUMMARY | 2025-05-10 21:39 | XMS_ITS | Data Portability ---
Author Organization [facility] Address [address] [place] [address] Assessment Encounter Date Assessment Date Assessment LastModified by Organization Details LastModified Time 03/25/2025 03/25/2025 Service was provided using [employer] medicine. The patient verbally consents to virtual services and the consent is documented in the medical record prior to using the service. Patient is located at their place of residence in [facility]. Provider is located at medical clinic in [facility]. Names and roles of all persons participating in telemedicine services include:jacek borden, elio lopez, evens neri and mother/caregiver dennise marcus. Not available 03/25/2025 13:54:30 04/21/2025 04/21/2025 - for catheter and supplies= [facility]. -also gave resources for [facility] development. continue on myrbetriq and oxybutinin -fu monthly for changes either with us or dr osborne. FU 4WKS 20 min spent in prep, face to face, and in coordination of care in addition to procedure time. [email or web address] Not available 04/21/2025 16:32:28 Plan of Treatment Reminders Order Date Submit Date Provider Last Modified By Organization Details Last Modified Time Details Appointments Follow Up 2024 04:20P M [place], DO Not available Not available Not available Procedur e 40 mins 2024 10:20A M Shireen Floyd APRN Not available Not available Not available Telemedi cine 20 2024 10:40A M Elio Lopez, PHARMACIST IN CHARGE Not available Not available Not available Lab drug screen, 14 drugs (detecti med), urine 2024 [place] [facility], [address], Luke F, [place], [address], 01/27/2025 06:18:38 Referral speech language patholog ist referral - pt needs assessme nt for communic ation device 2024 [email or web address] [facility], [address] [facility] [address] [facility] [address], [place], [address], 04/22/2025 17:39:[address] referral - Bilatera l toes. HX MS. Mother would like toes clipped. 2024 SOULEYMANE Headley DPM, [address] [facility], [place], [address], 03/09/2025 12:35:19 counseli ng referral - [facility] 2024 025 Not available 02/15/2025 09:21:04 psychiat rist referral - Lizy Lopez 2024 025 [email or web address] Not available 02/15/2025 09:21:04 Procedures None recorded . Surgeries None recorded . Imaging None recorded . Medication Orders Myrbetri q 50 mg tablet,e xtended release [address], [address], 04/21/2025 16:32:31 oxybutyn in chloride ER 15 mg tablet,e xtended release 24 hr [address], [address], 04/21/2025 16:32:31 ofloxaci n 0.3 % eye drops 2024 025 [facility] [id number], [address] [place] [address] , [place], [address], 03/01/2025 10:17:25 trazodon e 50 mg tablet [email or web address] [place] [address] Pharmacy [id number], [address] [facility] , [place], [address], 02/18/2025 12:23:34 Rexulti 1 mg tablet 2024 025 [facility] [id number], [address] [facility] , [place], [address], 02/18/2025 11:50:40 fluoxeti ne 60 mg tablet 2024 025 [facility] [id number], [address] [facility] , [place], [address], 02/18/2025 11:50:40 zolpidem 5 mg tablet 2024 025 [facility] [id number], [address] [facility] , [place], [address], 02/18/2025 11:50:11 gabapent in 300 mg capsule 2024 025 [facility] [id number], [address] [facility] , [place], [address], 01/21/2025 16:14:51 carbidop a 25 mg-levod opa 100 mg tablet 2024 025 [facility] [id number], [address] [facility] , [place], [address], 01/21/2025 16:14:48 buspiron e 5 mg tablet 2024 025 [facility] [id number], [address] [facility] , [place], [address], 01/21/2025 16:14:45 docusate sodium 250 mg capsule 2024 025 [facility] [id number], [address] [facility] , [place], [address], 01/21/2025 16:14:33 Vitamin D2 1,250 mcg (50,000 unit) capsule 2024 025 [facility] [id number], [address] [facility] , [place], [address], 01/21/2025 16:14:46 cycloben zaprine 5 mg tablet 2024 025 [facility] [id number], [address] [facility] , [place], [address], 01/21/2025 16:14:36 fluoxeti ne 60 mg tablet 2024 025 [facility] [id number], [address] [facility] , [place], [address], 01/21/2025 16:14:34 Rexulti 0.5 mg tablet 2024 025 [facility] [id number], [address] [facility] , [place], [address], 03/01/2025 09:31:31 Patient TargetsNo targets recorded. Patient Instructions Encounter Date Encounter Id Patient Instructions Last Modified By Organization Details Last Modified Time 01/21/2025 [id number] Cont' medications. Start Rexulti once daily. Follow up with psych and counseling. If you have any questions or concerns, call pp or seek medical attention. Not available 01/21/2025 16:50:10 Discussed w/ Evens and mother about following up with new PCP to further refill medications. Not available 01/21/2025 16:50:01 02/18/2025 [id number] Discussed R/B/SE/A of medications, and patient endorsed understanding. PDRM revd. Reviewed safety plan. mother given crisis numbers and discussion of possible resources in area (day program at [facility]). RTC 4 wks or sooner if needed. Not available 02/18/2025 12:45:17 03/25/2025 [id number] Due to the natur e of telemedicine, [...] client's designated emergency contact. rtc 2 months abner Not available 03/25/2025 14:49:57 04/21/2025 [id number] depression treatment: care instructions [email or web address] Not available 04/21/2025 16:32:30 multiple sclerosis (MS): care instructions [email or web address] Not available 04/21/2025 16:32:30 Reason for Referral Counseling Referral for Depr essive disorder [facility] Referring Physician: Fredi Johnson [facility], Encounter Date: 01/21/2025 Psychiatrist Referral for De pressive disorder Lziy Lopez Referring Physician: Fredi Johnson 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 HX MS. Mother would like toes clipped. Referring Physician: Fredi Johnson [facility], Encounter Date: 01/21/2025 Speech Language Pathologist Referral for Difficulty communicating pt needs assessment for communication device Referring Physician: Elio Lopez [facility], Encounter Date: 03/25/2025 Results Created Date Observation Date Name Description Value Unit Range Abnormal Flag Note LastModifiedBy Organization Detail LastModifiedTime 01/22/2001/27/2025 COMPL IANCE DRUG DAMARI SIS, UR summary [...] Not Available [facility] ([facility]) [address] [facility], [place], [address], 01/27/2025 06:18:38 01/22/20 25 01/27/2025 COMPL IANCE DRUG DAMARI SIS, UR pdf . Not Available [facility] ([facility]) [address] [facility], [place], [address], 01/27/2025 06:18:38 12/23/19 25 12/22/2024 XR, chest No observ ation record ed. [email or web address] [facility] [address], [place], [address], 12/23/2024 10:21:13 Result Notes None recorded. Problems Name Problem SNOMED Code Status Onset Date Resolution Date Notes Provider Name and Address Organization Details Recorded Time Depressive disorder 37917037 Active 2021 Nhung Yan null, [place] - [facility] 08:33:26 Anxiety 01499984 Active 2021 Nhung Yan [place] - [facility] 08:33:32 Chronic back pain 406974059 Active 2021 Love Alicea null, [place] - [facility] 2 13:51:27 Multiple sclerosis 54102472 Active 2021 Nhung Yan [place] [facility] 08:33:44 Insomnia 617229565 Active 2021 Love Alicea [place] - [facility] 2 13:52:49 Spasm of urinary bladder 322683577 Active 2022 Shireen Floyd, PHARMACIST IN CHARGE [address], [place], [address] , [place] - [facility] 3 15:50:55 Hyperlipid emia 52446329 Active 2023 Nhugn Yan null, [place] - [facility] 5 08:33:37 Overactive urinary bladder 597781449 Active 2023 Fredi Johnson, PHARMACIST IN CHARGE [address], [place], [address] , [place] - [facility] 4 08:22:02 Fissure in skin of bilateral feet 678880933 Active 2023 Fredi Johnson, PHARMACIST IN CHARGE [address], [place], [address] , [place] [facility] 4 08:22:05 Intention tremor 62316906 Active 2024 Fredi Johnson, PHARMACIST IN CHARGE [address], [place], [address] , [place] [facility] 5 15:34:52 Dystonia 90708566 Active 2024 Fredi Johnson, PHARMACIST IN CHARGE [address], [place], [address] , [place] - [facility] 5 15:34:54 Vitamin D deficiency 33106377 Active 2024 Fredi Johnson, PHARMACIST IN CHARGE [address], [place], [address] , [place] - [facility] 5 15:35:08 Constipati on 72270738 Active 2024 Fredi Johnson, PHARMACIST IN CHARGE [address], [place], [address] , [place] - [facility] 5 15:35:10 Primary progressiv e multiple sclerosis 521623864 Active 2024 Elio Lopez, PHARMACIST IN CHARGE [address], [place], [address] , [place] - [facility] 5 12:42:20 Mixed urinary incontinen ce 049844388 Active 2024 Nhung Yan null, [place] - [facility] 5 09:20:36 Toothache 66475825 Active 2024 [place], DO [address], [place], [address] , [place] [facility] 5 10:15:39 Bacterial conjunctiv itis 306895515 Active 2024 Citlaly Park, DO [address], [place], [address] , [place] [facility] 10:16:45 Inadequate oral intake 9917619220300 01 Active 2024 Citlaly Park, DO [address], [place], [address] , [place] [facility] 13:58:18 Problem Notes None recorded. Procedures Surgical History Date Name Laterality Status Provider Name and Address Organization Details Recorded Time 04/21/20 25 Suprapubic Catheter Change completed Shireen Mariel, PHARMACIST IN CHARGE [address], [place], [address], [place] [facility] 04/21/2025 16:13:43 10/15/19 25 Suprapubic Catheter Change completed Shireenblanca Floyd APRN [address], [place], [address], [place] [facility] 10/14/2024 15:06:09 08/13/19 25 Suprapubic Catheter Change completed Shireenblanca Floyd PHARMACIST IN CHARGE [address], [place], [address], [place] [facility] 08/12/2024 14:21:04 07/09/19 25 Bladder Irrigation completed Shireenblanca Floyd PHARMACIST IN CHARGE [address], [place], [address], [place] [facility] 07/09/2024 11:46:13 07/09/19 25 Suprapubic Catheter Change completed Shireenblanca Floyd, PHARMACIST IN CHARGE [address], [place], [address], [place] [facility] 07/09/2024 11:46:34 05/21/20 24 Suprapubic Catheter Change completed Shireenblanca Floyd, PHARMACIST IN CHARGE [address], [place], [address], [place] [facility] 05/21/2024 11:40:33 04/29/20 24 Medication Reconcilliation cancelled Radha Coronadom [place] - [facility] 04/27/2024 11:47:16 04/15/20 24 Suprapubic Catheter Change completed Shireen Floyd APRN [address], [place], [address], [place] [facility] 04/15/2024 09:43:31 12/31/19 24 Suprapubic Catheter Change completed Shireen Floyd APRN [address], [place], [address], [place] [facility] 12/31/2023 15:24:03 11/12/19 24 Suprapubic Catheter Change completed Shireen Floyd APRN [address], [place], [address], [place] [facility] 11/12/2023 12:38:46 11/14/19 23 Suprapubic Catheter Change completed Shireen Floyd APRN [address], [place], [address], [place] [facility] 11/13/2022 16:09:36 10/11/19 Suprapubic Catheter Change completed Shireen Floyd APRN [address], [place], [address], [place] [facility] 10/10/2022 15:35:42 09/15/19 23 Suprapubic Catheter Change completed Shireen Floyd APRN [address], [place], [address], [place] [facility] 09/14/2022 15:42:53 08/16/19 Suprapubic Catheter Change completed Shireen Floyd APRN [address], [place], [address], [place] [facility] 08/15/2022 15:48:10 08/11/19 Suprapubic Catheter Change completed Shireen Floyd APRN [address], [place], [address], [place] [facility] 08/10/2022 12:15:22 Unlisted px foot/toes completed Love Hallmanill [place] - [facility] 01/18/2022 13:54:42 procedure on gallbladder completed Love Hallmanill [place] - [facility] 01/18/2022 13:54:49 procedure on tibia completed Love Hallmanill [place] - [facility] 01/18/2022 13:55:01 catheterization completed Love Hallmanill [place] [facility] 04/20/2022 13:37:03 Knee Surgery completed Jacek Borden [place] - [facility] 02/18/2025 11:10:23 Imaging Results None recorded. Procedure Notes None recorded. Medical Equipment None Reported. Allergies Allergen ID Allergen Name Allergen Category Reaction Reaction Severity Criticality Documentation Date Start Date Code Code System Note Provider Name and Address Organization Details Recorded Time 799920 acetamino phen / hydrocodo ne medicatio n hives moderate Not available 12/31/20232023 90008 2 RxNorm MICHAEL [place] - [facility] 4 15:16:55 [id number] hydrocodo ne Not available hives Not available [...] mg capsule One tablet by mouth daily 08/14/ 2025 active Not Available Not Available Not Avai [...] Available Not Available Vitals Date Recorded Body temperature Heart rate Oxygen saturation Respiratory rate Pain severity - 0-10 verbal numeric rating [Score] - Reported Systolic And Diastolic Provider Name and Address Organization Details Last Updated DateTime 5 97.7 [degF] 86 /min 97 % 18 /min 0 122/78 mm[Hg] Radha Brooks [place] - [facility] 5 15:13:40 Date Recorded Pain severity - 0-10 verbal numeric rating [Score] - Reported Heart rate Oxygen saturation Systolic And Diastolic Provider Name and Address Organization Details Last Updated DateTime 02/18/2025 0 90 /min 97 % 112/72 mm[Hg] Jacek Borden [place] - [facility] 02/18/2025 11:09:43 Date Recorded Heart rate Oxygen saturation Respiratory rate Pain severity - 0-10 verbal numeric rating [Score] - Reported Systolic And Diastolic Provider Name and Address Organization Details Last Updated DateTime 5 89 /min 97 % 17 /min 0 118/70 mm[Hg] Nhung Yan [place] - [facility] 5 09:12:33 Date Recorded Heart rate Oxygen saturation Respiratory rate Pain severity - 0-10 verbal numeric rating [Score] - Reported Systolic And Diastolic Provider Name and Address Organization Details Last Updated DateTime 5 76 /min 96 % 18 /min 0 108/68 mm[Hg] Joie Louis [place] - [facility] 5 16:13:37 Social History Question Answer Notes LastModified by Organizat ion Details LastModified Time Tobacco Smoking Status Former Smoker Love Hall[place]clifford [place] - [facility] 04/20/2022 13:36:44 Do You Have An Advance Directive? No Information not available 01/18/2022 Are You Blind Or Do You Have Difficulty Seeing? No [email or web address] Information not available 01/18/2022 Is Blood Transfusion Acceptable In An Emergency? Yes [email or web address] Information not available 02/18/2025 What Is Your Level Of Caffeine Consumption? None [email or web address] Information not available 01/18/2022 How Much Tobacco Do You Chew? None [email or web address] Information not available 02/18/2025 Are You Deaf Or Do You Have Serious Difficulty Hearing? No Information not available 01/18/2022 Which Illicit Or Recreational Drugs Have You Used? Methanfetimine [email or web address] Information not available 03/01/2025 What Is The Highest Grade Or Level Of School You Have Completed Or The Highest Degree You Have Received? EP09452-3 [email or web address] Information not available 02/18/2025 Have There Been Any Changes To Your Family Or Social Situation? No [email or web address] Information not available 01/18/2022 What Is The Fluoride Status Of Your Home? Fluoridated [email or web address] Information not available 01/18/2022 When Did You Quit Smoking? 6-10yearssincelast cigarette Information not available 03/01/2025 How Many Years Have You Used Illicit Or Recreational Drugs? 4 [email or web address] Information not available 03/01/2025 Do You Have A Medical Power Of Cable Engineer? No [email or web address] Information not available 01/18/2022 What Was The Date Of Your Most Recent Tobacco Screening? 01/21/2025 Information not available 01/21/2025 What Is Your Current Pack Years? 10packyears [email or web address] Information not available 12/31/2023 Do You Use Protection Against STDs? No [email or web address] Information not available 03/01/2025 What Is Your Relationship Status? Single Information not available 02/18/2025 Do You Use Your Seat Belt Or Car Seat Routinely? Yes Information not available 02/18/2025 Are You Sexually Active? No [email or web address] Information not available 01/18/2022 Do You Have Smoke And Carbon Monoxide Detectors In Your Home? Yes [email or web address] Information not available 01/18/2022 At What Age Did You Start Smoking Tobacco? 16 [email or web address] Information not available 03/01/2025 Are You Passively Exposed To Smoke? No [email or web address] Information not available 01/18/2022 How Much Tobacco Do You Smoke? No Information not available 04/20/2022 Do You Use Sunscreen Routinely? Yes [email or web address] Information not available 03/01/2025 Has Tobacco Cessation Counseling Been Provided? Yes [email or web address] Information not available 01/18/2022 On What Date Was Tobacco Cessation Counseling Provided? 01/21/2025 Information not available 01/21/2025 How Many Years Have You Smoked Tobacco? 6 [email or web address] Information not available 03/01/2025 Do You Have Difficulty Walking Or Climbing Stairs? Yes [email or web address] Information not available 01/18/2022 Sex: Male Functional Status Question Answer Note LastModified by Organizat ion Details LastModified Time Do you use any illicit or recreational drugs? No [email or web address] Information not available 01/18/2022 Do you or have you ever used any other forms of tobacco or nicotine? No [email or web address] Information not available 01/18/2022 What is your level of alcohol consumption? None [email or web address] Information not available 01/18/2022 Do you or have you ever used smokeless tobacco? Never used smokeless tobacco Information not available 03/01/2025 Are you currently employed? No [email or web address] Information not available 01/18/2022 Do you have transportation difficulties? Yes [email or web address] Information not available 01/18/2022 Are you able to walk independently without assistance or assistive devices? NOWALK [email or web address] Information not available 01/18/2022 Do you have difficulty doing errands alone? Yes [email or web address] Information not available 01/18/2022 Are you able to care for yourself independently? No [email or web address] Information not available 01/18/2022 Do you have difficulty dressing, bathing, grooming, or toileting? Yes [email or web address] Information not available 01/18/2022 Do you or have you ever used e-cigarettes or vape? Former user of electronic cigarettes [email or web address] Information not available 03/01/2025 What is your exercise level? None [email or web address] Information not available 02/18/2025 Mental Status Question Answer Note LastModified by Organizat ion Details LastModified Time Do you feel stressed (tense, restless, nervous, or anxious, or unable to sleep at night)? [id number] [email or web address] Information not available 02/18/2025 Do you have difficulty concentrating, remembering or making decisions? Yes [email or web address] Information no t available 01/18/2022 Family History Relationship Description Onset Age of this Age Resolved Age Notes LastModified by Organization Details LastModified Time Mother Diabetes mellitus [email or web address] Not available 2021 13:52:58 Mother Depressive disorder [email or web address] Not available 2024 11:10:22 Mother Obesity [email or web address] Not available 02/18/2025 11:10:23 Maternal Uncle Obesity [email or web address] Not available 02/19/20 11:10:23 Brother Asthma [email or web address] Not available 02/18/2025 11:10:23 Medical History Condition [...] trivalent, PF 03/01/2025 completed [place], [address], [place], [address], [place] - [facility] 03/01/2025 10:17:22 Past Encounters Encounter ID Performer Location Encounter Start Date Encounter Closed Date Diagnosis/Indication Diagnosis SNOMED-CT Code Diagnosis ICD10 Code Diagnosis IMO Codes Diagnosis Note [id number] Fredi Johnson APRN [address] [place] [address] 01/18/2022 13:23:31 01/18/2022 15:02:47 Depressive disorder 55823662 F32.A Chronic back pain 229106 002 G89.29 Anxiety 58283100 F41.9 Insomnia 284626498 G47.0 0 Multiple sclerosis 74648 007 G35 Cigarette smoker 2566925 7 F17.210 Long-term drug therapy 763781284 Z79.899 Urinary incontinence 165 637044 R32 Depression screening 171 772744 Z13.31 PHQ-9 Hyperlipid emia screening 430504830 Z13.220 Diabetes m ellitus screening 277401262 Z13.1 Thyroid di sorder screening 454598733 Z13.29 [id number] Shireen Floyd APRN [facility] [address] [place] [address] 01/31/2022 11:20:44 01/31/2022 12:17:54 Multiple sclerosis 78769258 G35 has referral to neuro Depressive disorder 3548 9007 F32.A Urinary incontinence 165 533139 R32 [id number] Fredi Johnson APRN [address] [place] [address] 04/20/2022 13:22:05 04/20/2022 14:24:17 Anxiety 23869592 F41.9 Insomnia 947619193 G47.0 0 Chronic back pain 394703 002 G89.29 Depressive disorder 3548 9007 F32.A Multiple sclerosis 79994 007 G35 Suprapubic urinary catheter in situ 543191853 Z96.0 Spasm of u rinary bladder 951723080 N32.89 Long-term drug therapy 949390617 Z79.876 [id number] Fredi Johnson [address] [place] [address] 07/24/2022 13:43:03 07/24/2022 15:02:14 Multiple sclerosis 55311659 G35 Chronic back pain 744704 002 G89.29 Nicotine dependence 5629 4008 F17.200 Anxiety 48692967 F41.9 Long-term drug therapy 468730333 Z79.052 [id number] [facility] [address] [place] [address] 08/10/2022 10:31:10 08/10/2022 11:45:59 Urinary incontinence 670205766 R32 Multiple sclerosis 57185 007 G35 has referral to neuro Depressive disorder 3548 9007 F32.A Retention of urine 03117 4002 R33.9 [id number] Shireenalvaro [facility] [address] [place] [address] 09/14/2022 15:27:23 09/14/2022 16:01:42 Urinary incontinence 795540922 R32 continue oxybutinin , advised at 2wks after starting if still having leakage go to TID. Multiple sclerosis 63711 007 G35 has referral to neuro Depressive disorder 3548 9007 F32.A Retention of urine 00691 4002 R33.9 -cath Neurogenic urinary bladder 243557368 N31.9 [id number] Shireenblanca [facility] [address] [place] [address] 08/15/2022 15:16:35 08/15/2022 15:47:18 Urinary incontinence 634051358 R32 Multiple sclerosis 15461 007 G35 has referral to neuro Depressive disorder 3548 9007 F32.A Retention of urine 66965 4002 R33.9 Neurogenic urinary bladder 802354542 N31.9 [id number] [facility] [address] [place] [address] 10/10/2022 15:22:42 10/10/2022 15:54:15 Urinary incontinence 873329343 R32 Multiple sclerosis 09996 007 G35 has referral to neuro Depressive disorder 3548 9007 F32.A Retention of urine 84863 4002 R33.9 -cath Neurogenic urinary bladder 884545397 N31.9 Spasm of u rinary bladder 546777144 N32.89 [id number] [facility] [address] [place] [address] 11/13/2022 15:51:29 11/13/2022 16:34:43 Urinary incontinence 734992845 R32 Multiple sclerosis 46874 007 G35 has referral to neuro Depressive disorder 3548 9007 F32.A Retention of urine 27673 4002 R33.9 -cath Neurogenic urinary bladder 611725849 N31.9 -avoid anticholin ergics in this patient d/t potential patient harm. anticholin ergics interact with currently rx medication s and combo may incr. 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 Spasm of u rinary bladder 678090828 N32.89 [id number] Fredi Johnson APRN [address] [place] [address] 01/23/2023 16:01:20 01/23/2023 16:40:11 Anxiety 42016059 F41.9 Multiple sclerosis 37163 007 G35 Depressive disorder 3548 9007 F32.A Long-term current use of drug therapy 608933487 Z79.899 Insomnia 926007678 G47.0 0 Neurogenic urinary bladder 370720790 N31.9 Spasm of u rinary bladder 148452903 N32.89 Chronic back pain 158235 002 G89.29 Onychomyco sis of toenails 938699973 B35.1 Active or passive immunization 916454044 Z23 [id number] Fredi Johnson APRN [address] [place] [address] 11/05/2023 15:59:12 11/08/2023 06:14:35 General examination of patient [id number] Z00.00 Endocrine/ metabolic screening 014200481 Z13.228 Exercises education, guidance, and counseling 009906436 Z71.82 The patient was advised to continue a healthy diet and exercise regularly. Dietary ma nagement surveillance 691571822 Z71.3 Nicotine dependence 5629 4008 F17.200 Insomnia 701031306 G47.0 0 Multiple sclerosis 94007 007 G35 Hyperlipidemia 96565313 E78.5 Anxiety 54894689 F41.9 Depressive disorder 3548 9007 F32.A Constipation 57713870 K5 9.00 Overactive urinary bladder 293768578 N32.81 Chronic back pain 615525 002 G89.29 Fissure in skin of bilateral feet 400723551 R23.4 Depression screening 171 208653 Z13.31 PHQ-0 [id number] Shireen Floyd APRN [facility] [address] [place] [address] 11/12/2023 09:07:25 11/12/2023 10:01:12 Urinary incontinence 168077607 R32 Multiple sclerosis 66141 007 G35 has referral to neuro Depressive disorder 3548 9007 F32.A Retention of urine 43487 4002 R33.9 -cath Neurogenic urinary bladder 333821643 N31.9 -avoid anticholin ergics in this patient d/t potential patient harm. anticholin ergics interact with currently rx medication s and combo may incr. 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 Spasm of u rinary bladder 605207116 N32.89 Wound of skin 565312325 T14.8XXA Overactive urinary bladder 046415350 N32.81 -avoid anticholin ergics in this patient d/t potential patient harm. anticholin ergics interact with currently rx medication s and combo may incr. 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 AlsoBeta 3 agonists are the safest alternativ e for this patient. -had 2 month trial of gemtesa which was ineffectiv e to control his symptoms, left residual bladder spasms and pain. -best tolerated combinatio n has been myrbetriq and oxybutinin . [id number] [facility] [address] [place] [address] 12/31/2023 14:38:53 12/31/2023 15:58:33 Urinary incontinence 455500543 R32 Multiple sclerosis 96311 007 G35 has referral to neuro Depressive disorder 3546 9007 F32.A Retention of urine 93122 4002 R33.9 -cath Neurogenic urinary bladder 568903007 N31.9 -avoid anticholin ergics in this patient d/t potential patient harm. anticholin ergics interact with currently rx medication s and combo may incr. 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 Overactive urinary bladder 907833844 N32.81 -avoid anticholin ergics in this patient d/t potential patient harm. anticholin ergics interact with currently rx medication s and combo may incr. 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 AlsoBeta 3 agonists are the safest alternativ e for this patient. -had 2 month trial of gemtesa which was ineffectiv e to control his symptoms, left residual bladder spasms and pain. -best tolerated combinatio n has been myrbetriq and oxybutinin . [id number] [facility] [address] [place] [address] 04/15/2024 08:56:12 04/15/2024 09:51:48 Urinary incontinence 914414428 R32 Multiple sclerosis 33597 007 G35 has referral to neuro Depressive disorder 3549 9007 F32.A Retention of urine 78847 4002 R33.9 -cath Neurogenic urinary bladder 401583177 N31.9 -avoid anticholin ergics in this patient d/t potential patient harm. anticholin ergics interact with currently rx medication s and combo may incr. 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 Overactive urinary bladder 879900849 N32.81 -avoid anticholin ergics in this patient d/t potential patient harm. anticholin ergics interact with currently rx medication s and combo may incr. 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 AlsoBeta 3 agonists are the safest alternativ e for this patient. -had 2 month trial of gemtesa which was ineffectiv e to control his symptoms, left residual bladder spasms and pain. -best tolerated combinatio n has been myrbetriq and oxybutinin . [id number] [facility] [address] [place] [address] 05/21/2024 11:20:26 05/21/2024 11:59:33 Urinary incontinence 128605363 R32 Multiple sclerosis 06526 007 G35 has referral to neuro Depressive disorder 3548 9007 F32.A Retention of urine 67934 4002 R33.9 -cath Neurogenic urinary bladder 524455151 N31.9 -avoid anticholin ergics in this patient d/t potential patient harm. anticholin ergics interact with currently rx medication s and combo may incr. 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 Overactive urinary bladder 122674567 N32.81 -avoid anticholin ergics in this patient d/t potential patient harm. anticholin ergics interact with currently rx medication s and combo may incr. 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 AlsoBeta 3 agonists are the safest alternativ e for this patient. -had 2 month trial of gemtesa which was ineffectiv e to control his symptoms, left residual bladder spasms and pain. -best tolerated combinatio n has been myrbetriq and oxybutinin . [id number] [facility] [address] [place] [address] 07/09/2024 11:00:39 07/09/2024 11:48:50 Urinary incontinence 285843372 R32 Multiple sclerosis 43871 007 G35 has referral to neuro Depressive disorder 3548 9007 F32.A Retention of urine 77499 4002 R33.9 -cath Neurogenic urinary bladder 199489651 N31.9 -avoid anticholin ergics in this patient d/t potential patient harm. anticholin ergics interact with currently rx medication s and combo may incr. 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 Overactive urinary bladder 943387506 N32.81 -avoid anticholin ergics in this patient d/t potential patient harm. anticholin ergics interact with currently rx medication s and combo may incr. 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 AlsoBeta 3 agonists are the safest alternativ e for this patient. -had 2 month trial of gemtesa which was ineffectiv e to control his symptoms, left residual bladder spasms and pain. -best tolerated combinatio n has been myrbetriq and oxybutinin . [id number] Fredi Johnson [facility] [address] [place] [address] 05/26/2024 11:46:32 05/26/2024 12:21:29 Long-term current use of drug therapy 545752884 Z79.899 Multiple sclerosis 52943 007 G35 Chronic back pain 931009 002 G89.29 Insomnia 133166593 G47.0 0 Depressive disorder 3548 9007 F32.A Anxiety 24312569 F41.9 Hyperlipidemia 65731806 E78.5 Thyroid di sorder screening 834442606 Z13.29 Diabetes m ellitus screening 803924056 Z13.1 Vitamin D deficiency 347 80415 E55.9 Depression screening 171 311525 Z13.31 PHQ-12 [id number] Shireen Floyd [facility] [address] [place] [address] 08/12/2024 13:30:39 08/12/2024 14:21:07 Urinary incontinence 160554890 R32 Multiple sclerosis 32733 007 G35 has referral to neuro Depressive disorder 3548 9007 F32.A Retention of urine 81177 4002 R33.9 -cath Neurogenic urinary bladder 046315249 N31.9 -avoid anticholin ergics in this patient d/t potential patient harm. anticholin ergics interact with currently rx medication s and combo may incr. 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 Overactive urinary bladder 154975294 N32.81 -avoid anticholin ergics in this patient d/t potential patient harm. anticholin ergics interact with currently rx medication s and combo may incr. 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 AlsoBeta 3 agonists are the safest alternativ e for this patient. -had 2 month trial of gemtesa which was ineffectiv e to control his symptoms, left residual bladder spasms and pain. -best tolerated combinatio n has been myrbetriq and oxybutinin . [id number] Shireen Floyd APRN [facility] [address] [place] [address] 10/14/2024 14:03:16 10/14/2024 16:30:15 Overactive urinary bladder 838802386 N32.81 -avoid anticholin ergics in this patient d/t potential patient harm. anticholin ergics interact with currently rx medication s and combo may incr. 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 AlsoBeta 3 agonists are the safest alternativ e for this patient. -had 2 month trial of gemtesa which was ineffectiv e to control his symptoms, left residual bladder spasms and pain. -best tolerated combinatio n has been myrbetriq and oxybutinin . Urinary incontinence 165 815954 R32 Multiple sclerosis 98802 007 G35 has referral to neuro Depressive disorder 3542 9007 F32.A Retention of urine 04195 4002 R33.9 -cath Neurogenic urinary bladder 342221392 N31.9 -avoid anticholin ergics in this patient d/t potential patient harm. anticholin ergics interact with currently rx medication s and combo may incr. 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 Acute urin lux tract infection 523453069 N39.0 047503 [id number] Fredi Johnson [facility] [address] [place] [address] 01/21/2025 14:54:04 01/21/2025 16:54:12 Insomnia 727477851 G47.00 Chronic back pain 002923 002 G89.29 Long-term current use of drug therapy 956531255 Z79.899 33941816 Anxiety 86895251 F41.9 Multiple sclerosis 81793 007 G35 Constipation 44428608 K5 9.00 Vitamin D deficiency 347 63039 E55.9 Depressive disorder 3548 9007 F32.A taking Fluoxetine 60mg. Adding Rexulti daily.Foll ow up with psych and counselor. Overactive urinary bladder 450127286 N32.81 Follows up with Alfred Floyd PHARMACIST IN CHARGE -Urology. Neurogenic urinary bladder 390344854 N31.9 Follows up with Alfred Floyd PHARMACIST IN CHARGE -Urology. Intention tremor 2884278 6 G25.2 66724 Dystonia 19539289 G24.9 252088 Onychomycosis 990138772 B35.1 29483 [id number] Elio Lopez, [facility] [address] [place] [address] 02/18/2025 10:54:17 02/18/2025 13:26:56 Depressive disorder 48585970 F32.A increase rexulti dose.discu ssion of mother with risks; benefits and adverse effects including EPS which is different than his spastic tremors. monitor closely.co ntinue fluoxetine at present dose. Psychophys iologic insomnia 135321790 F51.04 573954 stop ambien. 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 [id number] [facility] [address] [place] [address] 03/01/2025 08:54:59 03/01/2025 10:24:57 Influenza vaccine needed 7289180911 106 Z23 Primary pr ogressive multiple sclerosis 408104507 G35 0277845 Toothache 85439220 K08.8 9 64744 Full extraction planned. Patient is clear for oral surgery. Bacterial conjunctivitis 263790843 H10.9 21111 Inadequate oral intake 7486655532 36992 E63.9 11286352 The patient requires at least 3 cans of daily Ensure Plus to supplement nutrition due to inadequate oral nutritiona l intake. This is necessary to avoid malnutriti on or weight loss. Failure to supplement nutrition may result in failure to thrive and deteriorat ion due to multiple sclerosis. [id number] Elio Lopez, [facility] [address] [place] [address] 03/25/2025 13:26:13 03/25/2025 16:31:22 Primary progressive multiple sclerosis 199935881 G35.B0 0086880 follows with neuro q 6 months for infusions. Intention tremor 1774100 6 G25.2 98777 chronic. Depressive disorder 3548 9007 F32.A continue rexulti at present dose.ashanti nue fluoxetine at present dose. Aggressive behavior 6137 2000 R46.89 9151613 greatly improved.c ontinue rexulti at present dosediscus sherice of mother with risks; benefits and adverse effects including EPS which is different than his spastic tremors. monitor closely. Anxiety 00970487 F41.9 continue buspirone at present dose. no changes at this time. Difficulty communicating 379394161 F80.9 90378613 [id number] [facility] [address] [place] [address] 04/21/2025 16:02:40 04/21/2025 16:34:02 Overactive urinary bladder 063521231 N32.81 -avoid anticholin ergics in this patient d/t potential patient harm. anticholin ergics interact with currently rx medication s and combo may incr. 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 AlsoBeta 3 agonists are the safest alternativ e for this patient. -had 2 month trial of gemtesa which was ineffectiv e to control his symptoms, left residual bladder spasms and pain. -best tolerated combinatio n has been myrbetriq and oxybutinin . Urinary incontinence 165 604964 R32 Multiple sclerosis 14940 007 G35.D 37093 has referral to neuro Depressive disorder 3548 9007 F32.A Retention of urine 37867 4002 R33.9 -cath Neurogenic urinary bladder 114129827 N31.9 -avoid anticholin ergics in this patient d/t potential patient harm. anticholin ergics interact with currently rx medication s and combo may incr. 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 Health Concerns Section Related Observation LastModified by Organization Detai ls LastModified Time None Recorded Concern Status LastModified by Organization Details LastModified Time None Recorded Advance Directives Directive N: Payers Insurance Date Sequence Insurance Name Policy Number Policy Cary Covered Member ID Cary Member ID Guarantor Name 04/18/2025 1 [place] [employer] - FFS/TRADITIONA L Evens Neri [id number] Evens Neri 04/18/2025 [id number] Evens A Neri [id number] Evens Neri 03/09/2025 [id number] Evens A Neri [id number] Evens Neri 09/09/2024 SLIDING FEE SCHEDULE - DISCOUNT Evens Neri 03/09/2025 1 [facility] (MEDICAID REPLACEMENT - HMO) Evens Neri [id number] Evens Neri 03/09/2025 1 [facility] PRIOR TO 2022 ([place] RE[place]AC[place] - [place]) [id number] Evens Neri [id number] Evens Neri 03/09/2025 1 [facility] (MEDICAID REPLACEMENT - HMO) [id number] Evens A Neri [id number] Evens Neri 03/09/2025 [id number] Evens Neri [id number] Evens Neri 03/09/2025 1 [place] [facility] [employer] - FFS/TRADITIONA L Evens Neri [id number] Evens Neri Notes Date Note Type Note Provider Name and Address Organization Details Recorded Time 01/21/2025 text/html ROS as noted in the HPI Evens presents today to follow-up on chronic back pain and insomnia. Mother states due to his teeth, it makes it difficult to chew food. Has been drinking oral Ensure three times a day for nutrition.Has an appt. with an oral surgeon on 02/03/25 in [place], [place] for full extraction. Is also needing a director of strategic alliances referral. Has never been seen by director of strategic alliances. Is also needing an order through [employer] for incontinent supplies. ProCare-large briefs and wipes. Has to give 10mg of melatonin nightly since he has been out of his melatonin. This works sometimes. Was able to fall and stay asleep much better when he was taking ambien. Feels like a burden. Little energy. Most days he voices that he does not want to wake up but then he thinks about his family and if he were to now that they would be sad. Does feel depressed most days during the week. He use to be homeless several years ago in [place], when he use to use meth and he does think of the people of the past he was around and does think about wanting to hurt these individuals if he was able. Has issues with toes being yellow and thick. Mother has done topical to his toes and this has not helped. Controlled Agreement: 01/21/25UDS Collected: 01/21/25[facility] #: [id number] Fredi Johnson, SARAH [address], [place], [address], [facility] 01/21/2025 16:50:32 02/18/2025 text/html pt here for recurrent depression and behavioral issues. mother reports he hits himself (face) at times and gets angry very quickly at times.pt endorses not wanting to live at times and not knowing what the future holds. PMH: pt dx at age 17 with MS by neurology in [place]. pt has lived with his mother during his lifetime (except for a homeless period as a teen). no IUP exp to drugs; term . +IEP in school with dx ADHD. no mood disorder at that time., after receiving dx of MS he dropped out of school and became homeless with + IVDU. pt has lived in [place] for 3.5 years and no drug use [...] asleep. denies nightmares. Psychomotor: Agitation Fatigue: Yes Guilt/worthlessness: No Poor concentration: Yes Suicidal ideation: Yes Low self-esteem: No Hopelessness: Yes Marquita/Hypomania Elevated mood and energy: Yes Inflated self-esteem or grandiosity: No Decreased need for sleep: No Pressured speech: No Flight of ideas: No Distractibility: Yes Increased goal-directed activity/psychomotor agitation: No Activities with risk of painful [...] Yespt wit spastic tremors Sleep disturbance: Yes Obsessive-Compulsive Disorder Recurrent thoughts, urges, images, that cause [...] or catatonic behavior: No Negative symptoms: No Attention-Deficit/Hype ractivity see HPI ASDno concerns prior to dx of MS Elio Lopez, PHARMACIST IN CHARGE [address], [place], [address], [facility] 02/18/2025 12:46:38 03/01/2025 text/html ROS as noted in the [...] Flu shot offered and accepted today. Citlaly Xavier, DO [address], [place], [address], [facility] 04/13/2025 14:00:55 03/25/2025 text/html Mother [...] interested in a communication device. Elio Lopez, PHARMACIST IN CHARGE [address], [place], [address], [facility] - [facility] 03/25/2025 14:50:12 04/21/2025 text/html pt was referred by fredi jean.his mom is with him. history of MS, anxiety, chronic back pain, depression, and insomnia to establish care. He recently moved here from [place].Dx with MS at the age of 17. [...] been 5wks since last change. Shireen Floyd, PHARMACIST IN CHARGE [address], [place], [address], [place] - [facility] 04/21/2025 16:32:46
--- NOTE | 2025-05-10 21:43 | ECG_ITS ---
APPROVED REPORT Exam: Resting ECG HR:120 bpm ECG Measurements Heart Rate 120 AXES MS 152 P 65 QRSd 110 QRS -84 QT 313 T 68 QTc 384 Conclusion SINUS TACHYCARDIA INCOMPLETE RIGHT BUNDLE BRANCH BLOCK [90+ ms QRS DURATION, TERMINAL R IN V1/V2, 40+ ms S IN I/aVL/V4/V5/V6] LEFT ANTERIOR FASCICULAR BLOCK [QRS AXIS <= -45, QR IN I, RS IN II] ST ELEVATION CONSISTENT WITH INJURY, PERICARDITIS, OR EARLY REPOLARIZATION [ST ELEVATION W/O NORMALLY INFLECTED T-WAVE] ABNORMAL ECG Electronically signed by : LENKA LAYNE, 05/11/2025 17:14:19
[2025-05-10 21:46] VITALS: BP 129/96; PULSE 128; RESP 18; TEMP 37.2; O2SAT 95; BMI 20.3
[2025-05-10] MEDS: LACTATED RINGERS 1000ML 1,000 ML 999 ML IV (21:59)
--- NOTE | 2025-05-10 22:09 | HMH.EDGENADL ---
Discharge Plan Disposition Patient Disposition: Admitted Clinical Impressions Clinical Impression: Colitis, Acute dehydration Discharge ED Provider: Rio Macias [facility] Adult HPI <Pablo Puente MD - Last Filed: 05/11/25 11:10> General Chief complaint: Nausea/Vomiting/Diarrhea Stated complaint: N/V/D, blood in stool Time Seen by Provider: 05/10/25 21:59 Mode of Arrival: EMS Source of Information: Parent(s) and EMS Description of Symptoms (Recalled from ER Triage Doc. by RN): Pt presents with freqent N/V/D since 1630 this afternoon. 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 Family states that starting at noon today, patient had an episode of nonbilious nonbloody vomiting. He has had multiple episodes of dark liquidy stools since then. She is concerned there may be blood in the stool as it has been more of a dark red. Patient has not been complaining of significant abdominal pain to her. She denies any fevers. He denies any chest pain or shortness of breath. Related Data Home Medications ?Medication ?Instructions ?Recorded ?Confirmed brexpiprazole 1 mg tablet 1 mg PO DAILY 03/17/25 05/11/25 buspirone 5 mg tablet 5 mg PO BID 03/17/25 05/11/25 carbidopa 25 mg-levodopa 100 mg 2 tab PO QID 03/17/25 05/11/25 tablet cyclobenzaprine 5 mg tablet 5 mg PO HS 03/17/25 05/11/25 docusate sodium 250 mg capsule 250 mg PO DAILY 03/17/25 05/11/25 ergocalciferol (vitamin D2) 1,250 1,250 mcg PO WEEKLY 03/17/25 05/11/25 mcg (50,000 unit) capsule (Vitamin D2) fluoxetine 60 mg tablet 60 mg PO DAILY 03/17/25 05/11/25 gabapentin 300 mg capsule 300 mg PO TID 03/17/25 05/11/25 loratadine 10 mg tablet 10 mg PO DAILY 03/17/25 05/11/25 mirabegron 50 mg tablet,extended 50 mg PO DAILY 03/17/25 05/11/25 release 24 hr oxybutynin chloride 15 mg 15 mg PO DAILY 03/17/25 05/11/25 tablet,extended release 24 hr trazodone 50 mg tablet 50 mg PO HS 03/17/25 05/11/25 Allergies Allergy/AdvReac Type Severity Reaction Status Date / Time acetaminophen (From [facility]) AdvReac Unknown Verified 03/18/25 06:58 allergy reaction hydrocodone (From [facility]) AdvReac Unknown Verified 03/18/25 06:58 allergy reaction PFSH <Pablo Puente MD - Last Filed: 05/11/25 11:10> [facility] Disclaimer: The information contained in this section may have been updated after the patient was seen, as this information can be updated by other users. Medical History (Updated 05/11/25 @ 07:17 by Lachelle Crook APRN) Suprapubic catheter Multiple sclerosis Surgical History (Updated 05/11/25 @ 07:17 by Lachelle Crook APRN) S/P deep brain stimulator placement Family History Other No significant family history Social History Smoking Status: Never smoker alcohol intake: former current occupational status: other Travel in the last 8 weeks?: None Have you lived/traveled outside [place] in past 30 days?: No Contact w/someone who lives/traveled outside US past 30 days?: No Exposure to someone with infectious disease in past 14 days?: No Do you have a fever (greater than 100.4 F or 38 C)?: No Have you tested positive for COVID-19?: No Exposed to someone with COVID-19 in past 14 days?: No Do you have a sore throat?: No Do you have a cough?: No Do you have any weakness?: No Do you have any diarrhea?: No Are you experiencing any unusual bleeding?: No Do you have any muscle aches/pain?: No Do you have any abdominal pain?: No Are you experiencing loss of taste or smell?: No <Pablo Puente MD - Last Filed: 05/11/25 11:10> ROS Obtained: Yes Systems reviewed as appropriate & no additional complaints except as documented Physical Exam <Pablo Puente MD - Last Filed: 05/11/25 11:10> General General appearance: alert and in no apparent distress Head Head exam: atraumatic Eye Eye exam: Present normal appearance ENT ENT exam: Present mucous membranes dry and normal external ear exam Neck Neck exam: Present full ROM Chest Chest inspection: Present symmetric chest wall rise Respiratory Respiratory exam: Present normal lung sounds bilaterally; Absent respiratory distress or wheezes Cardiovascular Cardiovascular exam: Present normal rhythm and tachycardia Abdominal Exam Abdominal exam: Present soft and tenderness (generalized tenderness); Absent guarding exam: Present deferred Extremities Exam Extremities exam: Present normal inspection Back Exam Back exam: Present normal inspection Neurological Exam Neurological exam: Present alert and oriented X3 Psychiatric Psychiatric exam: Present normal affect Skin Skin exam: Present warm and dry Medical Decision Making <Pablo Puente MD - Last Filed: 05/11/25 11:10> Medical Records Screening: Per USPSTF and CDC recommendations, given the prevalence of disease in our region, it is our hospital?s policy to screen for HIV and viral Hepatitis for all patients aged 18 and over and those with ongoing risk factors. Yared Inquiry Pt receiving controlled substance: No Vital Signs: 05/10/25 21:46 05/11/25 01:52 Temperature 98.9 F 98.9 F Temperature Source Temporal Artery Scan Oral Pulse Rate 94 H Pulse Rate [Right] 128 H Respiratory Rate 18 16 Blood Pressure 103/75 L Blood Pressure [Right Arm] 129/96 H Blood Pressure Mean [Right Arm] 107 Blood Pressure Source Automatic Cuff Blood Pressure Source [Right Arm] Automatic Cuff Blood Pressure Position Sitting Blood Pressure Position [Right Arm] Sitting 02 Sat by Pulse Oximetry 95 Oxygen Delivery Method Room Air Room Air Lab Data Lab Results 05/10/25 21:41: WBC 25.5 H*, RBC 6.03, Hgb 18.3 H, Hct 52.9 H, MCV 87.7, MCH 30.2, MCHC 34.4, RDW 13.2, Plt Count 304, MPV 10.5 H, Neut % (Auto) 90.5 H, Lymph % (Auto) 1.5 L, Finney % (Auto) 7.2, Eos % (Auto) 0.0 L, Baso % (Auto) 0.2, Neut # (Auto) 23.1 H, Lymph # (Auto) 0.4 L, Finney # (Auto) 1.8 H, Eos # (Auto) 0.0, Baso # (Auto) 0.1, Total Counted 100, Neutrophils % (Manual) 97 H, Lymphocytes % (Manual) 1 L, Monocytes % (Manual) 2, Platelet Estimate Normal, RBC Morphology Normal, PT 11.9, INR 1.08, Sodium 141, Potassium 3.8, Chloride 105, Carbon Dioxide 21 L, Anion Gap 18.8 H, BUN 14, Creatinine 0.70, Estimated Creat Clear 151, Estimated GFR 134, Est GFR ( Amer) 162, Glucose 154 H, Lactate 3.4 H, Calcium 9.5, Magnesium 2.3, Total Bilirubin 0.5, AST 87 H, ALT 70, Alkaline Phosphatase 170 H, C-Reactive Protein 29.3 H, Total Protein 8.6 H, Albumin 4.9, Globulin 3.7 H, Albumin/Globulin Ratio 1.3, Lipase 24 05/10/25 22:05: Stool Occult Blood Negative 05/11/25 06:24 05/11/25 06:24 Orders (Tests/Meds): ED MEDICATIONS Generic Name Dose Route Start Last Admin Trade Name Virgilq PRN Reason Stop Dose Admin Buspirone HCl 5 mg 05/11/25 09:00 05/11/25 09:05 Buspirone Hcl 5 Mg Tablet PO 06/10/25 08:59 5 mg BID LIZ Administration Carbidopa/Levodopa 1 each 05/11/25 09:00 05/11/25 09:06 Carbidopa/Levodopa 25/100mg Tablet PO 06/10/25 08:59 1 each DAILY LIZ Administration Cyclobenzaprine HCl 5 mg 05/11/25 21:00 Cyclobenzaprine 10mg Tablet PO 06/10/25 20:59 HS LIZ Fluoxetine HCl 60 mg 05/11/25 09:00 05/11/25 09:06 Fluoxetine 20mg Capsule PO 06/10/25 08:59 60 mg DAILY LIZ Administration Gabapentin 300 mg 05/11/25 09:00 05/11/25 09:05 Gabapentin 300mg Capsule PO 06/10/25 08:59 300 mg TID LIZ Administration Ceftriaxone Sodium 1 gm/ 50 mls @ 100 mls/hr 05/11/25 03:00 05/11/25 07:48 Sodium Chloride IV 05/21/25 02:59 Infused Q24H LIZ Infusion Sodium Chloride 1,000 mls @ 125 mls/hr 05/11/25 03:00 05/11/25 03:12 Sod Chlor 0.9% 1000ml Bag IV 06/10/25 02:59 125 mls/hr .Q8H LIZ Administration Metronidazole 500 mg in 100 mls @ 100 mls/hr 05/11/25 11:00 05/11/25 10:48 Flagyl 500mg/100ml Ivpb IV 05/21/25 10:59 100 mls/hr Q8H LIZ Administration Loratadine 10 mg 05/11/25 09:00 05/11/25 09:06 Loratadine 10mg Tablet PO 06/10/25 08:59 10 mg DAILY LIZ Administration Ondansetron HCl 4 mg 05/11/25 03:00 Ondansetron 4mg/2ml Vial IV 06/10/25 02:59 Q6HP PRN Nausea Oxybutynin Chloride 5 mg 05/11/25 09:00 05/11/25 09:05 Oxybutynin 5mg Tab PO 06/10/25 08:59 5 mg TID LIZ Administration Sodium Chloride 10 ml 05/11/25 02:34 Sodium Chloride 0.9% 10ml Flush Syringe IV 06/10/25 02:33 NEEDED PRN Maintain IV Site Trazodone HCl 50 mg 05/11/25 21:00 Trazodone 50mg Tablet PO 06/10/25 20:59 HS LIZ Discontinued Medications Generic Name Dose Route Start Last Admin Trade Name Riley PRN Reason Stop Dose Admin Lactated Ringer's 1,000 mls @ 999 mls/hr 05/10/25 21:51 05/11/25 00:26 Lactated Ringer's 1000 Ml Bag IV 05/10/25 22:51 Infused .Q1H1M ONE Infusion Lactated Ringer's 1,000 mls @ 999 mls/hr 05/10/25 23:33 05/11/25 01:33 Lactated Ringer's 1000 Ml Bag IV 05/11/25 00:33 Infused .Q1H1M ONE Infusion Metronidazole 500 mg in 100 mls @ 100 mls/hr 05/11/25 02:45 05/11/25 07:48 Flagyl 500mg/100ml Ivpb IV 05/21/25 02:44 Infused Q8H LIZ Infusion Iopamidol 80 ml 05/11/25 00:18 05/11/25 00:19 Iopamidol-370 (76%);100ml Bottle IV 05/11/25 00:19 80 ml ONCE ONE Administration Non-Formulary Medication 1 mg 05/11/25 09:00 05/11/25 10:37 Brexpiprazole PO 06/10/25 08:59 Not Given DAILY LIZ Non-Formulary Medication 50 mg 05/11/25 09:00 05/11/25 10:37 Mirabegron PO 06/10/25 08:59 Not Given DAILY ILZ Ondansetron HCl 4 mg 05/10/25 23:33 05/11/25 00:21 Ondansetron 4mg/2ml Vial IV 05/10/25 23:34 4 mg ONCE ONE Administration Sodium Chloride 50 ml 05/11/25 00:18 05/11/25 00:19 0.9 % Sodium Chloride 50 Ml Vial IV 05/11/25 00:19 50 ml ONCE ONE Administration Sodium Chloride 10 ml 05/11/25 00:18 05/11/25 00:19 Sodium Chloride 0.9% 10ml Syr (Rad Only) IV 05/11/25 00:19 10 ml ONCE ONE Administration Sodium Chloride 10 ml 05/11/25 02:58 Sodium Chloride 0.9% 10ml Flush Syringe IV 06/10/25 02:57 NEEDED PRN Maintain IV Site ORDERS Category Date Time Status CT angio abd/pel - GI Bleed Stat Cat Scan 05/10/25 23:33 Completed CBC w/Auto Diff [Complete Blood Count Auto Diff] Stat Lab 05/10/25 21:41 Completed CMP [Comprehensive Metabolic Panel] Stat Lab 05/10/25 21:41 Completed CRP [C-Reactive Protein] Stat Lab 05/10/25 21:41 Completed Diarrhea 23 Panel, PCR Stat Lab 05/10/25 23:58 Ordered Lactic Acid Stat Lab 05/10/25 21:41 Completed Lipase Stat Lab 05/10/25 21:41 Completed Magnesium Stat Lab 05/10/25 21:41 Completed Occult Blood,Stool Stat Lab 05/10/25 22:05 Completed PT INR [Prothrombin Time INR] Stat Lab 05/10/25 21:41 Completed Medical Decision Narrative: Evens Andre is a 30-year-old male with past medical history of multiple sclerosis, 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 Family states that starting at noon today, patient had an episode of nonbilious nonbloody vomiting. He has had multiple episodes of dark liquidy stools since then. She is concerned there may be blood in the stool as it has been more of a dark red. Patient has not been complaining of significant abdominal pain to her. She denies any fevers. He denies any chest pain or shortness of breath. On arrival, patient is tachycardic but hemodynamically stable. Afebrile. Maintaining appropriate oxygen saturation on room air. Physical exam, as stated above, revealed a nontoxic-appearing male in no significant distress. He does have dry mucous membranes. Cardiopulmonary exam revealed tachycardia but no murmurs or rubs. Abdomen with some generalized tenderness but no guarding or peritonitis. Suprapubic catheter is in place. rectal exam was performed with reel slitter and showed no external hemorrhoids. ANGELA with no ramos blood. Hemoccult was sent. The differential diagnosis includes, but is not limited to: Gastroenteritis, peptic ulcer disease, upper GI bleed, diverticulitis, colitis, among others. The most morbid conditions were considered and workup was based on these. Patient was administered 1 L of IV crystalloid and IV Zofran for his symptoms. At this time, patient's CT is still pending, however he does have a significant leukocytosis with neutrophil predominance and elevated CRP. Lactate elevated at 3.4. Mildly elevated anion gap. Very mildly elevated LFTs. Stool occult blood was negative. Patient's care was handed off to the oncoming physician, Dr. Macias. Colleen HAAS: I assumed care of the patient at the time of handoff from the prior provider. 30-year-old male with history of severe progressive MS diagnosed at age 17 presents for nausea vomiting and profuse diarrhea with possible blood noted by family. On arrival patient was tachycardic to the 130s. Heart rate is improved after 2 L of IV fluids. Labs were independent interpreted by me and significant for leukocytosis white count of 25. Neutrophil predominance. Mildly elevated anion gap. Lactate moderately elevated at 3.5. LFTs mildly elevated. Hemoccult was negative, PCR of the stool was ordered but not yet obtained. CT imaging was independently turbid by me and significant for pancolitis. I do not think patient would do well at home given the severity of his laboratory abnormalities and his inability to maintain p.o. intake. Family is in agreement. Patient was admitted for colitis and dehydration. I considered administering antibiotic therapy, but will hold off until GI PCR returns. <Rio Macias MD - Last Filed: 05/11/25 02:38> Vital Signs: 05/10/25 21:46 05/11/25 01:52 Temperature 98.9 F 98.9 F Temperature Source Temporal Artery Scan Oral Pulse Rate 94 H Pulse Rate [Right] 128 H Respiratory Rate 18 16 Blood Pressure 103/75 L Blood Pressure [Right Arm] 129/96 H Blood Pressure Mean [Right Arm] 107 Blood Pressure Source Automatic Cuff Blood Pressure Source [Right Arm] Automatic Cuff Blood Pressure Position Sitting Blood Pressure Position [Right Arm] Sitting 02 Sat by Pulse Oximetry 95 Oxygen Delivery Method Room Air Room Air Lab Data Lab Results 05/10/25 21:41: WBC 25.5 H*, RBC 6.03, Hgb 18.3 H, Hct 52.9 H, MCV 87.7, MCH 30.2, MCHC 34.4, RDW 13.2, Plt Count 304, MPV 10.5 H, Neut % (Auto) 90.5 H, Lymph % (Auto) 1.5 L, Finney % (Auto) 7.2, Eos % (Auto) 0.0 L, Baso % (Auto) 0.2, Neut # (Auto) 23.1 H, Lymph # (Auto) 0.4 L, Finney # (Auto) 1.8 H, Eos # (Auto) 0.0, Baso # (Auto) 0.1, Total Counted 100, Neutrophils % (Manual) 97 H, Lymphocytes % (Manual) 1 L, Monocytes % (Manual) 2, Platelet Estimate Normal, RBC Morphology Normal, PT 11.9, INR 1.08, Sodium 141, Potassium 3.8, Chloride 105, Carbon Dioxide 21 L, Anion Gap 18.8 H, BUN 14, Creatinine 0.70, Estimated Creat Clear 151, Estimated GFR 134, Est GFR ( Amer) 162, Glucose 154 H, Lactate 3.4 H, Calcium 9.5, Magnesium 2.3, Total Bilirubin 0.5, AST 87 H, ALT 70, Alkaline Phosphatase 170 H, C-Reactive Protein 29.3 H, Total Protein 8.6 H, Albumin 4.9, Globulin 3.7 H, Albumin/Globulin Ratio 1.3, Lipase 24 05/10/25 22:05: Stool Occult Blood Negative Orders (Tests/Meds): ED MEDICATIONS Generic Name Dose Route Start Last Admin Trade Name Riley PRN Reason Stop Dose Admin Buspirone HCl 5 mg 05/11/25 09:00 05/11/25 09:05 Buspirone Hcl 5 Mg Tablet PO 06/10/25 08:59 5 mg BID LIZ Administration Carbidopa/Levodopa 1 each 05/11/25 09:00 05/11/25 09:06 Carbidopa/Levodopa 25/100mg Tablet PO 06/10/25 08:59 1 each DAILY LIZ Administration Cyclobenzaprine HCl 5 mg 05/11/25 21:00 Cyclobenzaprine 10mg Tablet PO 06/10/25 20:59 HS LIZ Fluoxetine HCl 60 mg 05/11/25 09:00 05/11/25 09:06 Fluoxetine 20mg Capsule PO 06/10/25 08:59 60 mg DAILY LIZ Administration Gabapentin 300 mg 05/11/25 09:00 05/11/25 09:05 Gabapentin 300mg Capsule PO 06/10/25 08:59 300 mg TID LIZ Administration Ceftriaxone Sodium 1 gm/ 50 mls @ 100 mls/hr 05/11/25 03:00 05/11/25 07:48 Sodium Chloride IV 05/21/25 02:59 Infused Q24H LIZ Infusion Sodium Chloride 1,000 mls @ 125 mls/hr 05/11/25 03:00 05/11/25 03:12 Sod Chlor 0.9% 1000ml Bag IV 06/10/25 02:59 125 mls/hr .Q8H LIZ Administration Metronidazole 500 mg in 100 mls @ 100 mls/hr 05/11/25 11:00 05/11/25 10:48 Flagyl 500mg/100ml Ivpb IV 05/21/25 10:59 100 mls/hr Q8H LIZ Administration Loratadine 10 mg 05/11/25 09:00 05/11/25 09:06 Loratadine 10mg Tablet PO 06/10/25 08:59 10 mg DAILY LIZ Administration Ondansetron HCl 4 mg 05/11/25 03:00 Ondansetron 4mg/2ml Vial IV 06/10/25 02:59 Q6HP PRN Nausea Oxybutynin Chloride 5 mg 05/11/25 09:00 05/11/25 09:05 Oxybutynin 5mg Tab PO 06/10/25 08:59 5 mg TID LIZ Administration Sodium Chloride 10 ml 05/11/25 02:34 Sodium Chloride 0.9% 10ml Flush Syringe IV 06/10/25 02:33 NEEDED PRN Maintain IV Site Trazodone HCl 50 mg 05/11/25 21:00 Trazodone 50mg Tablet PO 06/10/25 20:59 HS LIZ Discontinued Medications Generic Name Dose Route Start Last Admin Trade Name Freq PRN Reason Stop Dose Admin Lactated Ringer's 1,000 mls @ 999 mls/hr 05/10/25 21:51 05/11/25 00:26 Lactated Ringer's 1000 Ml Bag IV 05/10/25 22:51 Infused .Q1H1M ONE Infusion Lactated Ringer's 1,000 mls @ 999 mls/hr 05/10/25 23:33 05/11/25 01:33 Lactated Ringer's 1000 Ml Bag IV 05/11/25 00:33 Infused .Q1H1M ONE Infusion Metronidazole 500 mg in 100 mls @ 100 mls/hr 05/11/25 02:45 05/11/25 07:48 Flagyl 500mg/100ml Ivpb IV 05/21/25 02:44 Infused Q8H LIZ Infusion Iopamidol 80 ml 05/11/25 00:18 05/11/25 00:19 Iopamidol-370 (76%);100ml Bottle IV 05/11/25 00:19 80 ml ONCE ONE Administration Non-Formulary Medication 1 mg 05/11/25 09:00 05/11/25 10:37 Brexpiprazole PO 06/10/25 08:59 Not Given DAILY LIZ Non-Formulary Medication 50 mg 05/11/25 09:00 05/11/25 10:37 Mirabegron PO 06/10/25 08:59 Not Given DAILY LIZ Ondansetron HCl 4 mg 05/10/25 23:33 05/11/25 00:21 Ondansetron 4mg/2ml Vial IV 05/10/25 23:34 4 mg ONCE ONE Administration Sodium Chloride 50 ml 05/11/25 00:18 05/11/25 00:19 0.9 % Sodium Chloride 50 Ml Vial IV 05/11/25 00:19 50 ml ONCE ONE Administration Sodium Chloride 10 ml 05/11/25 00:18 05/11/25 00:19 Sodium Chloride 0.9% 10ml Syr (Rad Only) IV 05/11/25 00:19 10 ml ONCE ONE Administration Sodium Chloride 10 ml 05/11/25 02:58 Sodium Chloride 0.9% 10ml Flush Syringe IV 06/10/25 02:57 NEEDED PRN Maintain IV Site ORDERS Category Date Time Status CT angio abd/pel - GI Bleed Stat Cat Scan 05/10/25 23:33 Completed CBC w/Auto Diff [Complete Blood Count Auto Diff] Stat Lab 05/10/25 21:41 Completed CMP [Comprehensive Metabolic Panel] Stat Lab 05/10/25 21:41 Completed CRP [C-Reactive Protein] Stat Lab 05/10/25 21:41 Completed Diarrhea 23 Panel, PCR Stat Lab 05/10/25 23:58 Ordered Lactic Acid Stat Lab 05/10/25 21:41 Completed Lipase Stat Lab 05/10/25 21:41 Completed Magnesium Stat Lab 05/10/25 21:41 Completed Occult Blood,Stool Stat Lab 05/10/25 22:05 Completed PT INR [Prothrombin Time INR] Stat Lab 05/10/25 21:41 Completed Tissue Perfus/Sepsis Re-Eval Sepsis Re-Evaluation Performed: Yes Date Performed: 05/11/25 Time Performed: 00:30 Medical Decision Narrative: Colleen HAAS: I assumed care of the patient at the time of handoff from the prior provider. 30-year-old male with history of severe progressive MS diagnosed at age 17 presents for nausea vomiting and profuse diarrhea with possible blood noted by family. On arrival patient was tachycardic to the 130s. Heart rate is improved after 2 L of IV fluids. Labs were independent interpreted by me and significant for leukocytosis white count of 25. Neutrophil predominance. Mildly elevated anion gap. Lactate moderately elevated at 3.5. LFTs mildly elevated. Hemoccult was negative, PCR of the stool was ordered but not yet obtained. CT imaging was independently turbid by me and significant for pancolitis. I do not think patient would do well at home given the severity of his laboratory abnormalities and his inability to maintain p.o. intake. Family is in agreement. Patient was admitted for colitis and dehydration. I considered administering antibiotic therapy, but will hold off until GI PCR returns. Critical Care <Pablo Puente MD - Last Filed: 05/11/25 11:10> Critical Care Time Critical Care Time: No
--- NOTE | 2025-05-10 23:33 | CT_ITS ---
PROCEDURE INFORMATION: Exam: CTA Abdomen and Pelvis With Contrast Exam date and time: 05/11/2025 12:09 AM Age: 30 years old Clinical indication: Abdominal pain; Acute; Additional info: Black stool, diarrhea TECHNIQUE: Imaging protocol: Computed tomographic angiography of the abdomen and pelvis with contrast. Exam focused on the arteries. 3D rendering (Not supervised by radiologist): MIP and/or 3D reconstructed images were created by the technologist. Radiation optimization: All CT scans at this facility use at least one of these dose optimization techniques: automated exposure control; mA and/or kV adjustment per patient size (includes targeted exams where dose is matched to clinical indication); or iterative reconstruction. Contrast material: ISOVUE; Contrast volume: 80 ml; Contrast route: INTRAVENOUS (IV); COMPARISON: CR XR CHEST PORTABLE 12/22/2024 8:57 PM FINDINGS: Lungs: Mild atelectasis in the lung bases. Heart: Heart size normal. Esophagus: The visualized distal esophagus is largely contracted without gross abnormality. Aorta: Visualized thoracic aorta is unremarkable. Abdominal aorta is normal. Celiac and mesenteric arteries: Celiac artery and its major branch vessels are normal. SMA and its major branch vessels are normal. EFE is normal. Renal arteries: Right renal artery is normal. Left renal artery is normal. Right iliac arteries: Right iliac arteries are normal. Left iliac arteries: Left iliac arteries are normal. Liver: Normal contour. No mass lesions. No intrahepatic biliary ductal dilatation. Gallbladder and biliary ducts: Prior cholecystectomy with no significant dilatation of the common bile duct. Pancreas: Normal. No inflammatory changes or ductal dilation. Spleen: Normal. No splenomegaly. Adrenal glands: Normal. No adrenal mass. Kidneys and ureters: No acute abnormalities. No hydronephrosis or hydroureter. No urinary tract stones are identified. Stomach and bowel: Small volume hyperdense material in the gastric fundus is present on the noncontrast acquisition and does not significantly change on subsequent acquisitions, consistent with ingested material. Small bowel is nondilated with no gross abnormality. The colon demonstrates moderate generalized bowel wall/fold thickening and mucosal hyperenhancement with slight adjacent stranding consistent with colitis. No evidence of active GI hemorrhage. No perforation or abscess. Appendix: The appendix is normal in caliber and demonstrates no evidence of appendicitis. Intraperitoneal space: No peritoneal free fluid or air. Lymph nodes: No adenopathy. Urinary bladder: Suprapubic catheter well positioned in the urinary bladder lumen. Bladder is fully contracted, limiting evaluation. Reproductive: Unremarkable as visualized. Bones/joints: No acute osseous abnormalities. Chronic lower left posterior rib fracture. Chronic left proximal femoral fracture with hardware fixation and no gross hardware complication. Soft tissues: No acute soft tissue abnormalities. IMPRESSION: 1. No evidence of active GI hemorrhage. 2. Moderate generalized colitis. No perforation or abscess. 3. Additional nonemergent findings detailed above.
[2025-05-10 23:45] LABS: Occult Blood,Stool Negative (Negative)
[2025-05-10 23:51] LABS: Albumin Level 4.9 g/dl (3.5-5.0); Chloride 105 mmol/L (98-107); Potassium 3.8 mmoL/L (3.5-5.1); Sodium 141 mmol/L (136-145)
[2025-05-10 23:53] LABS: Hematocrit 52.9 % (42.0-52.0); Immature Granulocytes % 0.6 %; Mean Corpuscular HGB Conc 34.4 g/dL (31.8-35.4); Mean Corpuscular Hemoglobin 30.2 pg (27.0-31.2); Mean Corpuscular Volume 87.7 fl (80-94); Nucleated Red Blood Cells % 0 %; Platelet Count 304 K/mm3 (142-424); Red Blood Count 6.03 M/mm3 (4.60-6.20); Red Cell Distribution Width-SD 42.3 fL; White Blood Count 25.5 K/mm3 (4.8-10.8)
[2025-05-10 23:54] LABS: Alanine Aminotransferase 70 U/L (12-78); Albumin/Globulin Ratio 1.3 (1.1-1.8); Alkaline Phosphatase 170 U/L (38-126); Anion Gap 18.8 mEq/L (5-15); Aspartate Amino Transferase 87 U/L (17-59); Bilirubin,Total 0.5 mg/dl (0.2-1.3); Blood Urea Nitrogen 14 mg/dl (9-20); Calcium 9.5 mg/dl (8.4-10.2); Carbon Dioxide 21 mmol/L (22.0-30.0); Creatinine Clearance Estimated 151 mL/min (50-200); Creatinine,Serum 0.70 mg/dl (0.66-1.25); Estimated Glomerular Filt Rate 134 ml/min (>60); GFR (African American) 162 ML/MIN (>60); Globulin 3.7 g/dL (1.3-3.2); Glucose 154 mg/dl (74-100); Lipase 24 U/L (23-300); Total Protein,Serum 8.6 g/dl (6.3-8.2)
[2025-05-10 23:55] LABS: Magnesium 2.3 mg/dl (1.6-2.3)
[2025-05-10 23:59] LABS: C-Reactive Protein 29.3 mg/L (0-4)
[2025-05-11] VITALS (7 sets, daily range): BP systolic 100–139; BP diastolic 50–75; PULSE 75–99; RESP 16–18; TEMP 36.7–37.2; O2SAT 95–99; BMI 24.1
[2025-05-11 00:01] LABS: INR 1.08 (0.9-1.1); Prothrombin Time 11.9 seconds (10.1-12.5)
[2025-05-11 00:13] LABS: Hemoglobin 18.3 g/dL (14.1-18.0)
[2025-05-11] MEDS: IOPAMIDOL-370 (76%);100ML BOTTLE 80 ML IV (00:19)
[2025-05-11] MEDS: SODIUM CHLORIDE 0.9% 10ML SYR (RAD ONLY) 10 ML IV (00:19)
[2025-05-11] MEDS: 0.9 % SODIUM CHLORIDE 50 ML VIAL IV (00:19)
[2025-05-11] MEDS: LACTATED RINGERS 1000ML 1,000 ML 999 ML IV (00:21)
[2025-05-11] MEDS: ONDANSETRON 4MG/2ML VIAL 4 MG IV (00:21)
[2025-05-11 01:36] LABS: Total Cells Counted 100
[2025-05-11 01:47] LABS: RBC Morphology Normal
--- NOTE | 2025-05-11 01:58 | PC.NURSE ---
Patient arrived to floor via stretcher from ED at 01:54.
[2025-05-11 02:07] LABS: Reflex Lactic Add Lactic Reflex
[2025-05-11 03:08] LABS: Lactic Acid Follow Up (RFLX 1) 1.9 mmol/L (0.7-2.1)
[2025-05-11] MEDS: METRONIDAZ/SOD CHL 500 MG/100 ML PIGGYBACK 100 MG IV ×3 (03:12→18:45)
[2025-05-11] MEDS: 0.9 % SODIUM CHLORIDE 1000ML 1,000 ML 125 ML IV ×3 (03:12→22:21)
[2025-05-11] MEDS: CEFTRIAXONE 1 GM 1 GM in 0.9 % SODIUM CHLORIDE 50 ML IV (03:59)
--- NOTE | 2025-05-11 06:44 | P.HP_ITS ---
<Statement entered by Adria Grullon MD - 05/18/25 15:55> Agree with plan of care as outlined by the [employer]. 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 Presents to [facility] due to nausea, vomiting and diarrhea. Symptoms began yesterday afternoon and has been persistent. Family concerned due to multiple dark liquidy stools. Noted there may have been stool dark red in color. Patient complaining of significant abdominal pain since onset of symptoms. On arrival to the emergency department patient found to have tachycardia heart rate in the 130s. Leukocytosis 25, elevated lactic 3.5, negative Hemoccult stool. CT abdomen pelvis obtained with evidence of colitis. Family denied known fevers, shortness of breath or chest pain. Initial ED workup included laboratory studies and imaging study. Imaging findings included WBC 25, Hemoccult negative, lactic acid 3.5, CT abdomen pelvis, I personally reviewed, revealing colitis. Patient received 2 L IV fluid in the emergency department. Improvement noted after treatment. PCR stool obtained/pending. Afebrile, BP within normal limits, RR 16, temp 98.4, on room air at 95%. Upon assessment of patient at bedside he is without acute distress, resting in bed comfortably. [facility] Disclaimer: The information contained in this section may have been updated after the patient was seen, as this information can be updated by other users. Medical History (Updated 05/11/25 @ 07:17 by Lachelle Crook APRN) Suprapubic catheter Multiple sclerosis Surgical History (Updated 05/11/25 @ 07:17 by Lachelle Crook APRN) S/P deep brain stimulator placement Family History Other No significant family history Social History Smoking Status: Never smoker alcohol intake: former current occupational status: other Travel in the last 8 weeks?: None Have you lived/traveled outside US in past 30 days?: No Contact w/someone who lives/traveled outside US past 30 days?: No Exposure to someone with infectious disease in past 14 days?: No Do you have a fever (greater than 100.4 F or 38 C)?: No Have you tested positive for COVID-19?: No Exposed to someone with COVID-19 in past 14 days?: No Do you have a sore throat?: No Do you have a cough?: No Do you have any weakness?: No Do you have any diarrhea?: No Are you experiencing any unusual bleeding?: No Do you have any muscle aches/pain?: No Do you have any abdominal pain?: No Are you experiencing loss of taste or smell?: No Other Medical History Have you received the Flu Vaccine for this season: No Have you received the Pneumonia Vaccine: No Review of Systems Review of Systems Review of systems:: pertinent systems reviewed and negative unless documented below Constitutional Constitutional: Reports system reviewed and no additional complaints, except as documented and Reports as per HPI Eyes Eyes: Reports system reviewed and no additional complaints, except as documented and Reports as per HPI ENT Ears, Nose, Mouth, and Throat: Reports system reviewed and no additional complaints, except as documented and Reports as per HPI *Cardiovascular Cardiovascular: Reports system reviewed and no additional complaints, except as documented and Reports as per HPI *Respiratory Respiratory: Reports system reviewed and no additional complaints, except as documented and Reports as per HPI *Gastrointestinal Gastrointestinal: Reports as per HPI, Reports change in stool character, Reports nausea and Reports vomiting Comments: Abdominal pain *Genitourinary Genitourinary: Reports as per HPI Comments: Suprapubic catheter in place *Musculoskeletal Musculoskeletal: Reports as per HPI and Reports limited range of motion Comments: Left upper and lower dystonia extremity Integumentary/Breasts Skin/Breast: Reports system reviewed and no additional complaints, except as documented and Reports as per HPI *Neurologic Neurologic: Reports as per HPI Comments: MS Psychiatric Psychiatric: Reports system reviewed and no additional complaints, except as documented and Reports as per HPI Endocrine Endocrine: Reports system reviewed and no additional complaints, except as documented and Reports as per HPI Hematologic/Lymphatic Hematologic/Lymphatic: Reports system reviewed and no additional complaints, except as documented and Reports as per HPI Allergic/Immunologic Allergic/Immunologic: Reports system reviewed and no additional complaints, except as documented and Reports as per HPI Meds Home Medications and Allergies Home Medications ?Medication ?Instructions ?Recorded ?Confirmed ?Type brexpiprazole 1 mg tablet 1 mg PO DAILY 03/17/2505/11 History buspirone 5 mg tablet 5 mg PO BID 03/17/25 5 History carbidopa 25 mg-levodopa 100 mg 2 tab PO QID 03/17/25 05/11/25 History tablet cyclobenzaprine 5 mg tablet 5 mg PO HS 03/17/25 History docusate sodium 250 mg capsule 250 mg PO DAILY 5 05/11/25 History ergocalciferol (vitamin D2) 1,250 1,250 mcg PO WEEKLY 03/17/25 05/11/25 History mcg (50,000 unit) capsule (Vitamin D2) fluoxetine 60 mg tablet 60 mg PO DAILY 03/17/2508/04 History gabapentin 300 mg capsule 300 mg PO TID 03/17/2505/11 History loratadine 10 mg tablet 10 mg PO DAILY 03/17/2508/04 History mirabegron 50 mg tablet,extended 50 mg PO DAILY 05/11/25 History release 24 hr oxybutynin chloride 15 mg 15 mg PO DAILY 03/17/2508/04 History tablet,extended release 24 hr trazodone 50 mg tablet 50 mg PO HS 03/17/25 5 History New Prescriptions to Start Prescriptions: Allergies Allergy/AdvReac Type Severity Reaction Status Date / Time acetaminophen (From [place]) AdvReac Unknown Verified 03/18/25 06:58 allergy reaction hydrocodone (From [place]) AdvReac Unknown Verified 03/18/25 06:58 allergy reaction Exam Data for Last 24 hours Vital signs and Labs for Last 24 Hours: Temp Pulse Resp BP Pulse Ox O2 Del Method 98.4 F 99 H 16 102/61 L 95 Room Air 05/11/25 04:00 05/11/25 04:00 05/11/25 04:00 05/11/25 04:00 05/11/25 04:00 05/11/25 06:32 Laboratory Results - last 24 hr 05/10/25 21:41: WBC 25.5 H*, RBC 6.03, Hgb 18.3 H, Hct 52.9 H, MCV 87.7, MCH 30.2, MCHC 34.4, RDW 13.2, Plt Count 304, MPV 10.5 H, Neut % (Auto) 90.5 H, Lymph % (Auto) 1.5 L, Craig % (Auto) 7.2, Eos % (Auto) 0.0 L, Baso % (Auto) 0.2, Neut # (Auto) 23.1 H, Lymph # (Auto) 0.4 L, Craig # (Auto) 1.8 H, Eos # (Auto) 0.0, Baso # (Auto) 0.1, Total Counted 100, Neutrophils % (Manual) 97 H, Lymphocytes % (Manual) 1 L, Monocytes % (Manual) 2, Platelet Estimate Normal, RBC Morphology Normal, PT 11.9, INR 1.08, Sodium 141, Potassium 3.8, Chloride 105, Carbon Dioxide 21 L, Anion Gap 18.8 H, BUN 14, Creatinine 0.70, Estimated Creat Clear 151, Estimated GFR 134, Est GFR ( Amer) 162, Glucose 154 H, Lactate 3.4 H, Calcium 9.5, Magnesium 2.3, Total Bilirubin 0.5, AST 87 H, ALT 70, Alkaline Phosphatase 170 H, C-Reactive Protein 29.3 H, Total Protein 8.6 H, Albumin 4.9, Globulin 3.7 H, Albumin/Globulin Ratio 1.3, Lipase 24 05/10/25 22:05: Stool Occult Blood Negative 05/11/25 02:43: Lactate 1.9 I & O for Last 24 hours: Intake & Output 05/08/25 05/09/25 05/10/25 05/11/25 23:59 23:59 23:59 23:59 Intake Total 1999 Balance 1999 Weight 68.039 kg 80.876 kg Constitutional Constitutional: no acute distress *Routine HEENT Exam Head: Present normocephalic, atraumatic and cushingoid faces Eye: Present EOMI, PERRL and normal accommodation ENT: Present mucous membranes moist *Routine Neck Exam Neck: Present supple and full ROM *Routine Respiratory Exam Respiratory: Present normal respiratory effort *Routine Cardiovascular Exam Cardiovascular: Present RRR, Normal S1 and Normal S2 *Routine Abdominal Exam Abdominal: Present soft and normoactive bowel sounds Comments: General abdominal mild tenderness upon palpation *Routine Rectal Exam Rectal:: deferred *Routine Genitalia Exam Genitalia:: deferred *Routine Extremities Exam Extremities: Present pulses intact and normal capillary refill *Routine Skin Exam Skin: Present intact *Routine Neurological Exam Neurological: Present alert and oriented X3 Comments: Upper left and lower left dystonia present Assessment and Plan *Assessment and plan (1) Acute colitis: Status: Acute Category: Medical Code(s): K52.9 - Noninfective gastroenteritis and colitis, unspecified (2) Nausea vomiting and diarrhea: Status: Acute Category: Medical Code(s): R11.2 - Nausea with vomiting, unspecified; R19.7 - Diarrhea, unspecified (3) Leucocytosis: Status: Acute Qualifiers: Leukocytosis type: unspecified Qualified Code(s): D72.829 - Elevated white blood cell count, unspecified Category: Medical Code(s): D72.829 - Elevated white blood cell count, unspecified (4) Acute dehydration: Status: Acute Category: Medical Code(s): E86.0 - Dehydration (5) Elevated lactic acid level: Status: Acute Category: Medical Code(s): R79.89 - Other specified abnormal findings of blood chemistry (6) Abdominal pain: Status: Acute Qualifiers: Abdominal location: generalized Qualified Code(s): R10.84 - Generalized abdominal pain Category: Medical Code(s): R10.9 - Unspecified abdominal pain (7) Suprapubic catheter: Status: Acute Category: Medical Code(s): Z93.59 - Other cystostomy status (8) S/P deep brain stimulator placement: Status: Acute Category: Surgical Code(s): Z96.89 - Presence of other specified functional implants (9) Multiple sclerosis: Status: Acute Category: Medical Code(s): G35 - Multiple sclerosis Plan Assessment/plan: I personally discussed the management of this patient with emergency department DrMayi And agree with admission for further evaluation treatment. Patient is a 30-year-old male presents with abdominal pain and nausea vomiting and diarrhea. Symptom onset yesterday evening. Family concerned with blood in the stool. Hem stool obtained, resulted negative. H&H within normal limit. CT abdomen and pelvis obtained revealing colitis. WBC 25, lactic acid 3.5, tachycardic on arrival to the ED. Received 2 L IV fluid with improvement. Resume IV fluids for hydration, broad-spectrum IV antibiotics initiated, IV Zofran as needed for nausea management. PCR stool requested/pending-adjust treatment as needed with results. Follow labs. 1. Acute colitis: Nausea vomiting and diarrhea, elevated WBC 25, lactic acid 3.[address] abdomen pelvis revealing colitis. Hemoccult stool obtained- > negative. Broad-spectrum IV antibiotics initiated pending PCR stool-> when resulted adjust treatment as needed. IV fluids for continued hydration. IV Zofran as needed for nausea management. Clear liquid diet. Patient currently with minimal abdominal discomfort. Monitor. CBC, CMP with morning labs. 2. Multiple sclerosis/deep brain stimulator placement/suprapubic catheter: MS diagnosed at 17 years old, noted upper left and lower left chronic dystonia. Resume home medication regime for underlying MS. suprapubic catheter in place not acute issue. Full code Clear liquid diet SCD's
[2025-05-11 06:58] LABS: Chloride 104 mmol/L (98-107); Potassium 3.9 mmoL/L (3.5-5.1); Sodium 142 mmol/L (136-145)
[2025-05-11 07:01] LABS: Blood Urea Nitrogen 11 mg/dl (9-20); Creatinine Clearance Estimated 180 mL/min (50-200); Creatinine,Serum 0.70 mg/dl (0.66-1.25); Estimated Glomerular Filt Rate 134 ml/min (>60); GFR (African American) 162 ML/MIN (>60)
[2025-05-11 07:02] LABS: Anion Gap 15.9 mEq/L (5-15); Calcium 8.7 mg/dl (8.4-10.2); Carbon Dioxide 26 mmol/L (22.0-30.0); Glucose 110 mg/dl (74-100)
[2025-05-11 07:03] LABS: Hematocrit 49.2 % (42.0-52.0); Immature Granulocytes % 0.3 %; Mean Corpuscular HGB Conc 32.5 g/dL (31.8-35.4); Mean Corpuscular Hemoglobin 29.4 pg (27.0-31.2); Mean Corpuscular Volume 90.3 fl (80-94); Nucleated Red Blood Cells % 0 %; Platelet Count 250 K/mm3 (142-424); Red Blood Count 5.45 M/mm3 (4.60-6.20); Red Cell Distribution Width-SD 43.3 fL; White Blood Count 16.0 K/mm3 (4.8-10.8)
--- NOTE | 2025-05-11 08:01 | HMH.PHAINT1 ---
Pharmacy Intervention Comments: MEDICATION RECONCILIATION COMPLETED ON PATIENT USING EXTERNAL FILL HISTORY FROM PHARMACY. -[address], [place]
[2025-05-11 08:31] LABS: Hemoglobin 16.2 g/dL (14.1-18.0)
[2025-05-11] MEDS: BUSPIRONE HCL 5 MG TABLET PO ×2 (09:05→20:34)
[2025-05-11] MEDS: GABAPENTIN 300MG CAPSULE 300 MG PO ×3 (09:05→20:34)
[2025-05-11] MEDS: LORATADINE 10MG TABLET 10 MG PO (09:06)
[2025-05-11] MEDS: FLUOXETINE 20MG CAPSULE 60 MG PO (09:06)
[2025-05-11] MEDS: CARBIDOPA/LEVODOPA 25/100MG TABLET 1 EACH PO (09:06)
--- NOTE | 2025-05-11 09:16 | HMH.PHAAMS2 ---
- Antimicrobial Stewardship Review culture & sensitivity review Stewardship interventions: culture & sensitivity review Comments: BLOOD CX PENDING, PATIENT ON ROCEPHIN/FLAGYL EMPIRICALLY FOR ACUTE COLITIS.
[2025-05-11 09:30] LABS: RBC Morphology Normal; Total Cells Counted 100
--- NOTE | 2025-05-11 09:50 | P.PN_ITS ---
<Statement entered by Adria Grullon MD - 05/18/25 15:55> Agree with plan of care as outlined by the GRAVEL HAULER. Subjective *Date: 05/11/25 *Time: 14:23 Interval history: Patient is resting comfortably in bed, mother at bedside. He has no complaints currently, states he has had no more episodes of diarrhea. Currently receiving IV antibiotics and IV fluids, advancing diet as tolerated. Medical Exam Vital signs and Labs for Last 24 Hours: Vital Signs Temp Pulse Pulse Resp BP BP Pulse Ox 05/11/25 07:40 98.4 F 90 16 139/50 L 96 05/11/25 06:32 05/11/25 05:00 05/11/25 04:00 98.4 F 99 H 16 102/61 L 95 05/11/25 03:00 05/11/25 02:00 75 18 105/71 L 95 05/11/25 01:52 98.9 F 94 H 16 103/75 L 05/10/25 21:46 98.9 F 128 H 18 129/96 H 95 O2 Del Method 05/11/25 07:40 Room Air 05/11/25 06:32 Room Air 05/11/25 05:00 Room Air 05/11/25 04:00 Room Air 05/11/25 03:00 Room Air 05/11/25 02:00 Room Air 05/11/25 01:52 Room Air 05/10/25 21:46 Room Air Intake and Output 05/10/25 05/11/25 05/11/25 23:59 07:59 15:59 Intake Total 2150 / 2670 520 / 2670 Balance 2150 / 2670 520 / 2670 Intake: Intake, Oral Amount 520 / 520 Intake, Total IV Amount 2150 / 2150 Ceftriaxone 1 gm 1 gm In 0.9 % 50 / 50 Sodium Chloride 50 ml @ 100 mls /hr IV Q24H LIZ Rx#:[id number] Lactated Ringers 1000ML 1,000 1000 / 1000 ml @ 999 mls/hr IV .Q1H1M ONE Rx#:[id number] Lactated Ringers 1000ML 1,000 1000 / 1000 ml @ 999 mls/hr IV .Q1H1M ONE Rx#:[id number] Metronidaz/Sod Chl 500 mg In 100 / 100 100 ml @ 100 mls/hr IV Q8H LIZ Rx#:[id number] Other: Weight 68.039 kg 80.876 kg Patient Weight 05/11/25 23:59 Weight 80.876 kg Laboratory Results - last 24 hr 05/10/25 21:41: WBC 25.5 H*, RBC 6.03, Hgb 18.3 H, Hct 52.9 H, MCV 87.7, MCH 30.2, MCHC 34.4, RDW 13.2, Plt Count 304, MPV 10.5 H, Neut % (Auto) 90.5 H, Lymph % (Auto) 1.5 L, Mcdonough % (Auto) 7.2, Eos % (Auto) 0.0 L, Baso % (Auto) 0.2, Neut # (Auto) 23.1 H, Lymph # (Auto) 0.4 L, Mcdonough # (Auto) 1.8 H, Eos # (Auto) 0.0, Baso # (Auto) 0.1, Total Counted 100, Neutrophils % (Manual) 97 H, Lymphocytes % (Manual) 1 L, Monocytes % (Manual) 2, Platelet Estimate Normal, RBC Morphology Normal, PT 11.9, INR 1.08, Sodium 141, Potassium 3.8, Chloride 105, Carbon Dioxide 21 L, Anion Gap 18.8 H, BUN 14, Creatinine 0.70, Estimated Creat Clear 151, Estimated GFR 134, Est GFR ( Amer) 162, Glucose 154 H, Lactate 3.4 H, Calcium 9.5, Magnesium 2.3, Total Bilirubin 0.5, AST 87 H, ALT 70, Alkaline Phosphatase 170 H, C-Reactive Protein 29.3 H, Total Protein 8.6 H, Albumin 4.9, Globulin 3.7 H, Albumin/Globulin Ratio 1.3, Lipase 24 05/10/25 22:05: Stool Occult Blood Negative 05/11/25 02:43: Lactate 1.9 05/11/25 06:24: WBC 16.0 H D, RBC 5.45, Hgb 16.2 D, Hct 49.2, MCV 90.3, MCH 29.4, MCHC 32.5, RDW 13.2, Plt Count 250, MPV 10.1, Neut % (Auto) 76.2, Lymph % (Auto) 12.2, Mcdonough % (Auto) 10.3 H, Eos % (Auto) 0.6, Baso % (Auto) 0.4, Neut # (Auto) 12.2 H, Lymph # (Auto) 2.0, Mcdonough # (Auto) 1.7 H, Eos # (Auto) 0.1, Baso # (Auto) 0.1, Total Counted 100, Neutrophils % (Manual) 82 H, Lymphocytes % (Manual) 11, Monocytes % (Manual) 6, Eosinophils % (Manual) 1, Platelet Estimate Normal, RBC Morphology Normal, Sodium 142, Potassium 3.9, Chloride 104, Carbon Dioxide 26, Anion Gap 15.9 H, BUN 11, Creatinine 0.70, Estimated Creat Clear 180, Estimated GFR 134, Est GFR ( Amer) 162, Glucose 110 H D, Calcium 8.7 I & O for Labs for Last 24 Hours: Intake & Output 05/08/25 05/09/25 05/10/25 05/11/25 23:59 23:59 23:59 23:59 Intake Total 2670 / 2670 Balance 2670 / 2670 Weight 68.039 kg 80.876 kg Constitutional: Present no acute distress, average body habitus, chronically ill appearing and cooperative Head: Present atraumatic Eyes: Present as per HPI Comment:: Edentulous Neck: Present normal inspection Respiratory: Present normal respiratory effort; Absent wheezes or crackles Cardiac: Present Reg Rate and Rhythm GI: Present soft and normal bowel sounds; Absent distention or tenderness Rectal (male): Present deferred (male): Present deferred Comment:: Suprapubic catheter in place, chronic Extremities: Present normal inspection and full ROM; Absent edema Skin: Present intact; Absent erythema Neuro: Present Weakness Comment:: Paroxysmal dystonia Assessment and Plan *Assessment and plan (1) Acute colitis: Status: Acute Category: Medical Code(s): K52.9 - Noninfective gastroenteritis and colitis, unspecified (2) Nausea vomiting and diarrhea: Status: Acute Category: Medical Code(s): R11.2 - Nausea with vomiting, unspecified; R19.7 - Diarrhea, unspecified (3) Leucocytosis: Status: Acute Qualifiers: Leukocytosis type: unspecified Qualified Code(s): D72.829 - Elevated white blood cell count, unspecified Category: Medical Code(s): D72.829 - Elevated white blood cell count, unspecified (4) Acute dehydration: Status: Acute Category: Medical Code(s): E86.0 - Dehydration (5) Elevated lactic acid level: Status: Acute Category: Medical Code(s): R79.89 - Other specified abnormal findings of blood chemistry (6) Abdominal pain: Status: Acute Qualifiers: Abdominal location: generalized Qualified Code(s): R10.84 - Generalized abdominal pain Category: Medical Code(s): R10.9 - Unspecified abdominal pain (7) Suprapubic catheter: Status: Acute Category: Medical Code(s): Z93.59 - Other cystostomy status (8) S/P deep brain stimulator placement: Status: Acute Category: Surgical Code(s): Z96.89 - Presence of other specified functional implants (9) Multiple sclerosis: Status: Acute Category: Medical Code(s): G35 - Multiple sclerosis Tushar Horner is a 30-year-old male who presented to the emergency department with complaints of abdominal pain and nonbilious, nonbloody vomiting. Additionally he has had multiple episodes of dark, liquidy stools since that time. Mother is at bedside who is concerned that his stools might have bleeding. Patient denies fevers, chest pain, shortness of breath. He has a significant primary medical history of multiple sclerosis, diagnosed at the age of 17, chronic suprapubic catheter, deep brain stimulator. Workup in the ED was significant for leukocytosis with neutrophil predominance, elevated CRP. Initial lactic 3.4. Stool occult blood was negative. CT shows significant pancolitis. Hospital medicine was consulted for admission for colitis and dehydration. Plan of care as follows: #Acute colitis #Leukocytosis ? Patient initial white count 25, trending downward to 16.1. Lactate on arrival was 3.5, trending downward to 1.9. patient was found to be tachycardic to the 130s, received IV fluids of 2 L with significant improvement in heart rate. Additionally received broad-spectrum IV antibiotics of Rocephin and Flagyl. PCR stool requested, has been unable to provide a sample since admission. ? Assessment this morning reveals no abdominal pain, no nausea, no vomiting, no diarrhea. Patient received clear liquids which she tolerated well, advance to full liquids for lunch also tolerated well. Will advance diet to soft mechanical for dinner. ? Patient has Zofran IV as needed for nausea. Plans to continue IV antibiotics overnight, advance diet, anticipate discharge home tomorrow morning if improvement in white count and abdominal pain continue. ? CBC, CMP ordered for the a.m. #Multiple sclerosis ? Patient was diagnosed with MS at the age of 17, has notable upper left and lower left chronic dystonia. Patient has chronic suprapubic catheter implanted, no issues noted with drainage. Patient's mother at bedside assisted in answering questions. PT/OT evaluation reveals patient is at baseline functiona lity, he is dependent on at home but family and patient states they have what they need at this time. ?Continuing patient's home medication of brexpiprazole 1 mg daily, BuSpar 5 mg twice daily, carbidopa?levodopa 2 tab 4 times daily, Flexeril 5 mg at bedtime, fluoxetine 60 mg daily, gabapentin 300 mg 3 times daily, loratadine 10 mg daily, mirabegron 50 mg daily, oxybutynin 15 mg daily, and trazodone 50 mg at bedtime. Full code Advancing diet VTE?SCDs
--- NOTE | 2025-05-11 10:54 | SW/DCPLANNER ---
Addendum entered by Bettie Reed 05/12/25 11:03: PT recommended home health services at discharge. Patient is not a candidate for home health due to insurance. Patient's mother is agreeable to outpatient PT services at [facility] and will arrange [employer]. Original Note: Patient currently resides at home w/ his mother. I did speak w/ patient's mother regarding plans once medically stable for discharge. Per patient's mother the plan for him is to return home w/ no needs at this time and has all appropriate DME at home. Per provider Leeann Fitch patient will discharge home tomorrow pending no setbacks.
--- NOTE | 2025-05-11 11:20 | DIET.NUTRFU ---
RD consulted secondary to no teeth, mom in room during morning rounds and reports he tolerates a soft diet at home. Will advance to full liquids for lunch and then soft from there when ready and provider orders.
--- NOTE | 2025-05-11 13:13 | HMH.PTEV ---
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 Presents to [facility] due to nausea, vomiting and diarrhea. Symptoms began yesterday afternoon and has been persistent. Family concerned due to multiple dark liquidy stools. Noted there may have been stool dark red in color. Patient complaining of significant abdominal pain since onset of symptoms. On arrival to the emergency department patient found to have tachycardia heart rate in the 130s. Leukocytosis 25, elevated lactic 3.5, negative Hemoccult stool. CT abdomen pelvis obtained with evidence of colitis. Family denied known fevers, shortness of breath or chest pain. Subjective Subjective Pts mother is present in room and is his primary historian and caregiver. She reports he uses a dawna lift for all transfers at baseline and has manual w/c and power w/c at home for mobility. [facility] How much help from another person do you currently need... Turning from your A lot back to your side while in a flat bed without using bedrails? Moving from lying on Total back to sitting on the side of a flat bed without using bedrails? Moving to and from a Total bed to a chair ( including a wheelchair)? Standing up from a Total chair using your arms? (e.g., wheelchair, bedside chair) Walking in hospital Total room? Climbing 3-5 steps Total with a railing? Mobility Score 7 Mobility Level [facility] Mobility 2 Bed activities/dependent transfer Mobility Calculator Rehab PT IP Eval Objective Appearance Patient Behavior Appropriate Patient Orientation Person,Place Difficulty following none instructions Speech Pattern Delayed,Garbled,Patient Baseline Ambulation Patient Able to No Ambulate Balance Ability to Arise Unable Transfers Bed Transfer Ability Total/Dependent (100%) Chair Transfer Total/Dependent (100%) Ability Rehab PT IP prob,goals,plan Problems Date of Evaluation: 05/11/25 Discharge Plan PT Discharge Plan Pt is currently at baseline for all mobility and has all necessary equipment needed. Home Health Therapy may be able to assist family in improved mobility at home if desired. Eval Complexity Eval Charge Codes 09167 - High Complexity PHYSICIAN CERTIFICATION: I certify the specified therapy services for Evens Andre are required, authorized, and reviewed every 30 days.
--- NOTE | 2025-05-11 17:02 | PC.NURSE ---
Pt is A&Ox4. Vital signs stable tolerating room air. IV fluids and abx infused per MAR. Pt has had no complaints of abdominal pain this shift and has tolerated advancement of diet. Pt did have diarrhea once today but was too small to get a sample of. Pt aware of need for sample. Supra-pubic catheter in place draining urine. Pt offered Q2 turn and repositioning and educated on importance to prevent bed sores but pt refused stating I am comfortable. Pt resting comfortably supine in bed with family at bedside with no further needs voiced at this time. Call light within reach.
[2025-05-11] MEDS: TRAZODONE 50MG TABLET 50 MG PO (20:34)
[2025-05-11] MEDS: CYCLOBENZAPRINE 10MG TABLET 5 MG PO (20:34)
[2025-05-12] VITALS: BP 125/77; PULSE 80; RESP 16; TEMP 36.8; O2SAT 100
[2025-05-12] MEDS: METRONIDAZ/SOD CHL 500 MG/100 ML PIGGYBACK 100 MG IV ×2 (03:17→10:59)
[2025-05-12 04:00] VITALS: BP 108/67; PULSE 69; RESP 18; TEMP 36.3; O2SAT 96; BMI 24.1
[2025-05-12] MEDS: CEFTRIAXONE 1 GM 1 GM in 0.9 % SODIUM CHLORIDE 50 ML IV (04:38)
[2025-05-12 06:21] LABS: Hematocrit 39.3 % (42.0-52.0); Immature Granulocytes % 0.3 %; Mean Corpuscular HGB Conc 32.8 g/dL (31.8-35.4); Mean Corpuscular Hemoglobin 29.8 pg (27.0-31.2); Mean Corpuscular Volume 90.8 fl (80-94); Nucleated Red Blood Cells % 0 %; Platelet Count 193 K/mm3 (142-424); Red Blood Count 4.33 M/mm3 (4.60-6.20); Red Cell Distribution Width-SD 44.5 fL; White Blood Count 9.3 K/mm3 (4.8-10.8)
[2025-05-12 06:51] LABS: Albumin Level 3.0 g/dl (3.5-5.0); Chloride 109 mmol/L (98-107); Potassium 4.0 mmoL/L (3.5-5.1); Sodium 140 mmol/L (136-145)
[2025-05-12 06:54] LABS: Alanine Aminotransferase 52 U/L (12-78); Albumin/Globulin Ratio 1.2 (1.1-1.8); Alkaline Phosphatase 92 U/L (38-126); Anion Gap 12.0 mEq/L (5-15); Aspartate Amino Transferase 23 U/L (17-59); Blood Urea Nitrogen 6 mg/dl (9-20); Carbon Dioxide 23 mmol/L (22.0-30.0); Creatinine Clearance Estimated 180 mL/min (50-200); Creatinine,Serum 0.70 mg/dl (0.66-1.25); Estimated Glomerular Filt Rate 134 ml/min (>60); GFR (African American) 162 ML/MIN (>60); Globulin 2.6 g/dL (1.3-3.2); Total Protein,Serum 5.6 g/dl (6.3-8.2)
[2025-05-12 06:55] LABS: Calcium 7.8 mg/dl (8.4-10.2); Glucose 83 mg/dl (74-100)
[2025-05-12 06:57] LABS: Bilirubin,Total 0.1 mg/dl (0.2-1.3)
[2025-05-12 07:56] VITALS: BP 101/47; PULSE 72; RESP 18; TEMP 36.4; O2SAT 98
[2025-05-12 08:02] LABS: Hemoglobin 12.9 g/dL (14.1-18.0)
--- NOTE | 2025-05-12 08:32 | HMH.PHAAMS2 ---
- Antimicrobial Stewardship Review culture & sensitivity review Stewardship interventions: culture & sensitivity review (PATIENT CURRENTLY ON ROCEPHIN AND FLAGYL, WBC DECREASED FROM 25.5K TO 9.3K. AFEBRILE. NO GROWTH IN BLOOD CX.)
[2025-05-12] MEDS: BUSPIRONE HCL 5 MG TABLET PO (08:49)
[2025-05-12] MEDS: CARBIDOPA/LEVODOPA 25/100MG TABLET 1 EACH PO (08:49)
[2025-05-12] MEDS: LORATADINE 10MG TABLET 10 MG PO (08:49)
[2025-05-12] MEDS: FLUOXETINE 20MG CAPSULE 60 MG PO (08:50)
[2025-05-12] MEDS: GABAPENTIN 300MG CAPSULE 300 MG PO (08:53)
--- NOTE | 2025-05-12 09:55 | P.DS_ITS ---
<Statement entered by Adria Grullon MD - 05/18/25 15:53> Agree with plan of care as outlined by the ENVIRONMENTAL HEALTH MANAGER. 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 Presents to [facility] due to nausea, vomiting and diarrhea. Symptoms began yesterday afternoon and has been persistent. Family concerned due to multiple dark liquidy stools. Noted there may have been stool dark red in color. Patient complaining of significant abdominal pain since onset of symptoms. On arrival to the emergency department patient found to have tachycardia heart rate in the 130s. Leukocytosis 25, elevated lactic 3.5, negative Hemoccult stool. CT abdomen pelvis obtained with evidence of colitis. Family denied known fevers, shortness of breath or chest pain. Initial ED workup included laboratory studies and imaging study. Imaging findings included WBC 25, Hemoccult negative, lactic acid 3.5, CT abdomen pelvis, I personally reviewed, revealing colitis. Patient received 2 L IV fluid in the emergency department. Improvement noted after treatment. PCR stool obtained/pending. Afebrile, BP within normal limits, RR 16, temp 98.4, on room air at 95%. Upon assessment of patient at bedside he is without acute distress, resting in bed comfortably. Hospital Course Hospital Course Hospital Course: Evens is a 30-year-old male who presented to the emergency department with complaints of abdominal pain and nonbilious, nonbloody vomiting. Additionally he has had multiple episodes of dark, liquidy stools since that time. Mother is at bedside who is concerned that his stools might have bleeding. Patient denies fevers, chest pain, shortness of breath. He has a significant primary medical history of multiple sclerosis, diagnosed at the age of 17, chronic suprapubic catheter, deep brain stimulator. Workup in the ED was significant for leukocytosis with neutrophil predominance, elevated CRP. Initial lactic 3.4. Stool occult blood was negative. CT shows significant pancolitis. Hospital medicine was consulted for admission for colitis and dehydration. Hospital course as follows: #Acute colitis #Leukocytosis ? Patient initial white count 25, trending downward to 1.3-day of discharge. Lactate on arrival was 3.5, trending downward to 1.9. patient was found to be tachycardic to the 130s, received IV fluids of 2 L with significant improvement in heart rate. Additionally received broad-spectrum IV antibiotics of Rocephin and Flagyl. PCR stool requested, but was unable to provide one during admission. Patient will be discharged home on Augmentin 875-125 mg twice daily x 5 days, to complete a total of 7 days of antibiotics. ? Assessment this morning reveals no abdominal pain, no nausea, no vomiting, no diarrhea. Patient initially started on clear liquid diet yesterday and was transition to soft mechanical for dinner and again breakfast this morning. Tolerated diet with no issues. ? Lab work day of discharge reassuring, hemoglobin 12.9, no electrolyte abnormalities, normal kidney function. Blood cultures continue to show no growth. #Multiple sclerosis ? Patient was diagnosed with MS at the age of 17, has notable upper left and lower left chronic dystonia. Patient has chronic suprapubic catheter implanted, no issues noted with drainage. Patient's mother at bedside assisted in answering questions. PT/OT evaluation reveals patient is at baseline functionality, he is dependent on at home but family and patient states they have what they need at this time. PT recommendation of outpatient therapy, patient and mother are agreeable. Outpatient PT/OT ordered prior to discharge. ? Continue home medications at discharge of : brexpiprazole 1 mg daily, BuSpar 5 mg twice daily, carbidopa?levodopa 2 tab 4 times daily, Flexeril 5 mg at bedtime, fluoxetine 60 mg daily, gabapentin 300 mg 3 times daily, loratadine 10 mg daily, mirabegron 50 mg daily, oxybutynin 15 mg daily, and trazodone 50 mg at bedtime. Total time spent on discharge 32 minutes in counseling, documentation, chart review, and direct care with patient. Exam Data for Last 24 hours Vital signs and Labs for Last 24 Hours: Temp Pulse Resp BP Pulse Ox O2 Del Method 97.6 F 72 18 101/47 L 98 Room Air 05/12/25 07:56 05/12/25 07:56 05/12/25 07:56 05/12/25 07:56 05/12/25 07:56 05/12/25 06:21 Laboratory Results - last 24 hr 05/12/25 05:31: WBC 9.3 D, RBC 4.33 L, Hgb 12.9 L D, Hct 39.3 L, MCV 90.8, MCH 29.8, MCHC 32.8, RDW 13.3, Plt Count 193, MPV 10.6 H, Neut % (Auto) 55.9, Lymph % (Auto) 28.4, [place] % (Auto) 9.6 H, Eos % (Auto) 5.3, Baso % (Auto) 0.5, Neut # (Auto) 5.2, Lymph # (Auto) 2.6, [place] # (Auto) 0.9, Eos # (Auto) 0.5 H, Baso # (Auto) 0.1, Sodium 140, Potassium 4.0, Chloride 109 H, Carbon Dioxide 23, Anion Gap 12.0, BUN 6 L D, Creatinine 0.70, Estimated Creat Clear 180, Estimated GFR 134, Est GFR ( Amer) 162, Glucose 83 D, Calcium 7.8 L, Total Bilirubin 0.1 L, AST 23 D, ALT 52 D, Alkaline Phosphatase 92, Total Protein 5.6 L D, Albumin 3.0 L D, Globulin 2.6, Albumin/Globulin Ratio 1.2 I & O for Last 24 hours: Intake & Output 05/09/25 05/10/25 05/11/25 05/12/25 23:59 23:59 23:59 23:59 Intake Total 6630 / 6630 670 / 670 Output Total 600 / 600 1800 / 1800 Balance 6030 / 6030 -1130 / -1130 Weight 68.039 kg 80.876 kg 80.876 kg Microbiology Reports for the Last 24 Hours: Microbiology 05/11/25 06:24 Blood Blood Culture - Preliminary NO GROWTH AFTER 24 HOURS 05/11/25 06:24 Blood Blood Culture - Preliminary NO GROWTH AFTER 24 HOURS Constitutional Constitutional: no acute distress, average body habitus, chronically ill appearing and cooperative *Routine HEENT Exam Head: Present normocephalic Eye: Present EOMI ENT: Present mucous membranes moist; Absent dentition normal (edentulous) *Routine Neck Exam Neck: Present supple; Absent lymphadenopathy *Routine Respiratory Exam Respiratory: Present CTA bilaterally and normal respiratory effort *Routine Cardiovascular Exam Cardiovascular: Present RRR; Absent murmur *Routine Abdominal Exam Abdominal: Present soft and normoactive bowel sounds; Absent tenderness or distended *Routine Rectal Exam Patient deferred: visual exam *Routine Exam Patient deferred: penile exam Comments: Chronic suprapubic catheter in place *Routine Extremities Exam Extremities: Absent cyanosis, clubbing or edema *Routine Skin Exam Skin: Present intact and dry *Routine Neurological Exam Neurological: Present alert, oriented X3, motor deficit and tremors Comments: endentulous left-sided dystonia noted Results Data Completed and Pending Labs on day of discharge: Labs from last 24 hours 05/12/25 05:31 WBC 9.3 D RBC 4.33 L Hgb 12.9 L D Hct 39.3 L MCV 90.8 MCH 29.8 MCHC 32.8 RDW 13.3 Plt Count 193 MPV 10.6 H Neut % (Auto) 55.9 Lymph % (Auto) 28.4 [place] % (Auto) 9.6 H Eos % (Auto) 5.3 Baso % (Auto) 0.5 Neut # (Auto) 5.2 Lymph # (Auto) 2.6 [place] # (Auto) 0.9 Eos # (Auto) 0.5 H Baso # (Auto) 0.1 Sodium 140 Potassium 4.0 Chloride 109 H Carbon Dioxide 23 Anion Gap 12.0 BUN 6 L D Creatinine 0.70 Estimated Creat Clear 180 Estimated GFR 134 Est GFR ( Amer) 162 Glucose 83 D Calcium 7.8 L Total Bilirubin 0.1 L AST 23 D ALT 52 D Alkaline Phosphatase 92 Total Protein 5.6 L D Albumin 3.0 L D Globulin 2.6 Albumin/Globulin Ratio 1.2 Preliminary micro results at discharge 05/11/25 06:24 Blood Culture - Preliminary Blood NO GROWTH AFTER 24 HOURS 05/11/25 06:24 Blood Culture - Preliminary Blood NO GROWTH AFTER 24 HOURS DS: Diagnosis Discharge Diagnosis (1) Acute colitis: Status: Acute Code(s): K52.9 - Noninfective gastroenteritis and colitis, unspecified (2) Nausea vomiting and diarrhea: Status: Acute Code(s): R11.2 - Nausea with vomiting, unspecified; R19.7 - Diarrhea, unspecified (3) Leucocytosis: Status: Acute Code(s): D72.829 - Elevated white blood cell count, unspecified Qualifiers: Leukocytosis type: unspecified Qualified Code(s): D72.829 - Elevated white blood cell count, unspecified (4) Acute dehydration: Status: Acute Code(s): E86.0 - Dehydration (5) Elevated lactic acid level: Status: Acute Code(s): R79.89 - Other specified abnormal findings of blood chemistry (6) Abdominal pain: Status: Acute Code(s): R10.9 - Unspecified abdominal pain Qualifiers: Abdominal location: generalized Qualified Code(s): R10.84 - Generalized abdominal pain (7) Suprapubic catheter: Status: Acute Code(s): Z93.59 - Other cystostomy status (8) S/P deep brain stimulator placement: Status: Acute Code(s): Z96.89 - Presence of other specified functional implants (9) Multiple sclerosis: Status: Acute Code(s): G35 - Multiple sclerosis Meds Home Medications and Allergies Home Medications ?Medication ?Instructions ?Recorded ?Confirmed ?Type brexpiprazole 1 mg tablet 1 mg PO DAILY 03/17/2505/11 History buspirone 5 mg tablet 5 mg PO BID 03/17/25 5 History carbidopa 25 mg-levodopa 100 mg 2 tab PO QID 03/17/25 05/11/25 History tablet cyclobenzaprine 5 mg tablet 5 mg PO HS 03/17/25 History docusate sodium 250 mg capsule 250 mg PO DAILY 5 05/11/25 History ergocalciferol (vitamin D2) 1,250 1,250 mcg PO WEEKLY 03/17/25 05/11/25 History mcg (50,000 unit) capsule (Vitamin D2) fluoxetine 60 mg tablet 60 mg PO DAILY 03/17/2508/04 History gabapentin 300 mg capsule 300 mg PO TID 03/17/2505/11 History loratadine 10 mg tablet 10 mg PO DAILY 03/17/2508/04 History mirabegron 50 mg tablet,extended 50 mg PO DAILY 05/11/25 History release 24 hr oxybutynin chloride 15 mg 15 mg PO DAILY 03/17/2508/04 History tablet,extended release 24 hr trazodone 50 mg tablet 50 mg PO HS 03/17/25 5 History amoxicillin 875 mg-potassium 1 tab PO BID #10 tabs 09/01 Rx clavulanate 125 mg tablet New Prescriptions to Start Prescriptions: amoxicillin-pot clavulanate Angelita Fitch Allergies Allergy/AdvReac Type Severity Reaction Status Date / Time acetaminophen (From [facility]) AdvReac Unknown Verified 03/18/25 06:58 allergy reaction hydrocodone (From [facility]) AdvReac Unknown Verified 03/18/25 06:58 allergy reaction Discharge Plan Disposition Patient Disposition: Home, Self-Care Condition: Fair Follow up Plan Follow up with: Gloria Johnson APRN [Referring, Medical] - Enter time for follow up Uri Barnett, PT [Physical Therapist, Physical Therapy] - 05/25/25 3:00 pm Prescriptions/Medication Reconciliation: New amoxicillin-pot clavulanate 875-125 mg tablet 1 tab PO BID Qty: 10 0RF Continued buspirone 5 mg Tablet 5 mg PO BID oxybutynin chloride 15 mg Tablet Extended Release 24hr 15 mg PO DAILY trazodone 50 mg Tablet 50 mg PO HS gabapentin 300 mg Capsule 300 mg PO TID ergocalciferol (vitamin D2) [Vitamin D2] 1,250 mcg (50,000 unit) Capsule 1,250 mcg PO WEEKLY docusate sodium 250 mg Capsule 250 mg PO DAILY carbidopa-levodopa 25-100 mg tablet 2 tab PO QID loratadine 10 mg Tablet 10 mg PO DAILY cyclobenzaprine 5 mg Tablet 5 mg PO HS fluoxetine 60 mg Tablet 60 mg PO DAILY mirabegron 50 mg Tablet Extended Release 24 Hr 50 mg PO DAILY brexpiprazole 1 mg Tablet 1 mg PO DAILY Problem Reconciliation Problems Reviewed?: Yes Patient Discharge Instructions ACTIVITY: Continue current activity DIET: continue same diet Patient Instructions: DI for Dehydration in Adults, DI for Colitis Print Language: Kazakh Providers Primary Care Provider: Provider,Referral Admit Provider: Phil Mcfarlane Attending Provider: Phil Mcfarlane
[2025-05-12 12:00] VITALS: BP 107/69; PULSE 83; RESP 17; TEMP 37.1; O2SAT 93
--- NOTE | 2025-05-13 09:51 | SW/DCPLANNER ---
Spoke with patient's mom on the phone. Patient's mom stated that he seems to be doing good. Patient's mom stated that he was able to get his new medicine picked up from the pharmacy. Patient's mom stated that they are aware of his upcoming appointments. Patient's mom stated that she has no concerns or questions at this time. Carlos Hunter
== END 2025-05-12 14:00 | disposition home or self-care (01) ==
LOC: ER 05-11 01:17 → 2ND 05-11 01:22
PROVIDERS: Nurse Practitioner Acute Care; Student in an Organized Health Care Education/Training Program; Admitting Provider Internal Medicine Adolescent Medicine; Emergency Provider Emergency Medicine; Visit Provider Internal Medicine Adolescent Medicine
DX: K52.9 Noninfective gastroenteritis and colitis, unspecified (principal); R11.2 Nausea with vomiting, unspecified; E86.0 Dehydration; R79.89 Other specified abnormal findings of blood chemistry; Z93.59 Other cystostomy status; Z96.89 Presence of other specified functional implants; G35.D Multiple sclerosis, unspecified; Z79.899 Other long term (current) drug therapy; Z88.5 Allergy status to narcotic agent; Z88.6 Allergy status to analgesic agent; M79.622 Pain in left upper arm; G89.29 Other chronic pain; R00.0 Tachycardia, unspecified; I45.2 Bifascicular block
CPT/HCPCS: 74174; 80048; 80053; 82272; 83605; 83690; 83735; 85007; 85025; 85027; 85610; 86140; 87040; 93005; 96361; 96365; 96366; 96367; 96375; 96376; 97163; 99285; G0328; G0378; J0696; J1836; J2405; J7030; J7120; Q9967